=== PATIENT | male | born 1950 | race Caucasian/White ===

== ENCOUNTER 2020-02-25 15:03 | Outpatient (CLI) | payer MEDICARE, SELFPAY ==
--- NOTE | ~2020-02-25 | XR_ITS ---
EXAMINATION: XR lumbar spine min 4V EXAM DATE: 02/25/2020 15:40 INDICATION: Lumbosacral radiculopathy. TECHNIQUE: Lumber spine frontal, lateral, bilateral oblique projections. Coned down frontal and lat eral L5-S1 lumbar projections for interpretation. There is no prior study for comparison. FINDINGS: There is no spondylolysis. There is moderate disc disease L3-S1, mild at the upper lumbar l ower thoracic levels. There is moderate mid and lower lumbar facet arthropathy. The vertebral bodies are aligned in the AP dimension. There are no acute fractures identified. There is moderate abdomin al aortic arteriosclerotic disease. IMPRESSION: Moderate lumbar spondylosis. Reviewed, dictated and finalized at location A.
== END 2020-02-25 15:04 | disposition home or self-care (01) ==
PROVIDERS: PCP Family Medicine; Visit Provider Family Medicine
DX: M47.26 Other spondylosis with radiculopathy, lumbar region (principal)
CPT/HCPCS: 72110

== ENCOUNTER 2020-03-03 16:56 | Outpatient (CLI) | payer MEDICARE, SELFPAY ==
--- NOTE | ~2020-03-03 | MR_ITS ---
EXAMINATION: MR lumbar spine wo con DATE: 03/03/2020 17:44 INDICATION: Lumbosacral radiculopathy. TECHNIQUE: Magnetic resonance imaging (MRI) of the lumbar spine was performed without intravenous con trast. Sequences included sagittal T2-weighted FSE, sagittal T2-weighted FS FSE, sagittal T1-weighted FSE, and axial T2-weighted FSE. COMPARISON: CT abdomen and pelvis dated 06/02/2010 FINDINGS: Alignment is normal. Vertebral body heights are normal. Normal marrow signal. Moderate to severe dis c height loss at L3-L4, moderate disc height loss at T12-L1, mild to moderate disc height loss at L4- L5 and L5-S1 and mild disc height loss at T11-T12, L1-L2 and L2-L3. The conus medullaris terminates a t T12-L1. There is normal signal in the caudal spinal cord. Incompletely visualized large T2 hyperint ense cysts at both kidneys measuring at least 10 cm on the left. Paravertebral soft tissues are unrem arkable. The following disc levels are specifically discussed: T12-L1: Disc is moderately bulging with superimposed annular fissures and disc extrusions at the bila teral foraminal zones, right larger than left. There is mild bilateral facet joint osteoarthritis. Th ere is mild to moderate left and moderate right neural foraminal stenosis. There is moderate central canal stenosis narrowing of the lateral recesses, right greater than left L1-L2: Disc is moderately bulging. There is moderate bilateral facet joint osteoarthritis. There is m oderate bilateral neural foraminal stenosis. There is moderate central canal stenosis with narrowing of the lateral recesses. L2-L3: Disc is mildly bulging with superimposed moderate-sized left foraminal zone disc protrusion. T here is moderate right and mild to moderate left facet joint osteoarthritis. There is moderate bilate ral neural foraminal stenosis. There is moderate central canal stenosis and narrowing of the lateral recesses, left greater than right. L3-L4: Disc is moderately bulging. There is moderate bilateral facet joint osteoarthritis. There is m oderate bilateral neural foraminal stenosis. There is mild central canal stenosis. L4-L5: Disc is moderately bulging. There is moderate left and moderate to severe right facet joint os teoarthritis. There is moderate bilateral neural foraminal stenosis. There is mild central canal sten osis. L5-S1: Disc is mildly bulging with superimposed annular fissure and left paracentral to foraminal zon e disc extrusion. There is severe right and moderate left facet joint osteoarthritis. There is modera te to severe bilateral neural foraminal stenosis. There is mild central canal stenosis and narrowing of the left and right lateral recesses. IMPRESSION: 1. Moderate to severe lumbar spondylosis. Reviewed, dictated and finalized at location A.
== END 2020-03-03 16:57 | disposition home or self-care (01) ==
PROVIDERS: PCP Family Medicine; Visit Provider Family Medicine
DX: M54.17 Radiculopathy, lumbosacral region (principal); M47.816 Spondylosis without myelopathy or radiculopathy, lumbar region
CPT/HCPCS: 72148

== ENCOUNTER 2021-02-17 08:01 | Outpatient (CLI) | payer MEDICARE, SELFPAY ==
--- NOTE | ~2021-02-17 | XR_ITS ---
EXAMINATION: XR chest 2V EXAM DATE: 02/17/2021 08:13 INDICATION: R06.02 - Shortness of breath. TECHNIQUE: Frontal and lateral projections of the chest obtained and reviewed. There is no prior oksana dy for comparison. FINDINGS: Low lung volume. The lungs are clear. There are no pleural effusions. The cardiomediastin al silhouette is within normal limits. There is no pneumothorax suspected. Patient has diffuse idio pathic skeletal hyperostosis (DISH). IMPRESSION: No acute cardiopulmonary findings. Reviewed, dictated and finalized at location B.
== END 2021-02-17 08:02 | disposition home or self-care (01) ==
PROVIDERS: PCP Family Medicine; Visit Provider Family Medicine
DX: R06.02 Shortness of breath (principal)
CPT/HCPCS: 71046

== ENCOUNTER 2021-03-02 14:35 | Outpatient (CLI) | payer MEDICARE, SELFPAY ==
--- NOTE | 2021-03-06 13:55 | WPDPFTINT ---
PFT Procedure Performed PFT Procedure Performed Plethysmography (Lung Vol) Diffusing Cap (DLCO) Flow Vol Loop Spirometry w/o Bronchodil PFT Interpretation This PFT met all criteria for ATS standards and reproducibility FEV/FVC 79% FEV1 79% FVC 77% TLC 73% RV 56% RV/TLC 27% DLCO 64% when adjusted for alveolar volume but not adjusted for hemoglobin Flow volume loops were normal Impression: a restrictive ventilatory defect is present with mildly reduced diffusion capacity. This may be due to interstitial lung disease neuromuscular disease or obesity. Clinical correlation is advised.
== END 2021-03-02 14:36 | disposition home or self-care (01) ==
PROVIDERS: PCP Family Medicine; Visit Provider Family Medicine
DX: R06.02 Shortness of breath (principal)
CPT/HCPCS: 94375; 94726; 94729

== ENCOUNTER 2021-05-03 07:51 | Outpatient (CLI) | payer MEDICARE, SELFPAY ==
--- NOTE | ~2021-05-03 | CT_ITS ---
EXAMINATION: CT chest high resolution wo ia DATE: 05/03/2021 08:16 INDICATION: Shortness of breath, abnormal pulmonary function tests TECHNIQUE: Computed tomography (CT) of the chest was performed without intravenous contrast. The dose -length product (DLP) was 712.74 mGy-cm. Automated exposure control and iterative reconstruction tech Stagee were employed. COMPARISON: None FINDINGS: There is mild atelectasis of the lower lobes, lingula, and the right middle lobe. There is a 3 mm nodule of the right upper lobe on image 45. No pleural effusion or pneumothorax is identified. No pathologically enlarged thoracic lymph nodes are identified. The heart size is normal. Calcified coronary artery atherosclerosis is noted. There is a rim calcified 10.1 cm cyst of the left kidney. S maller cysts are noted in the right kidney. Although limited by the absence of intravenous contrast, there appears to be inflammation of the gallbladder. There are bridging osteophytes at multiple level s in the spine, consistent with diffuse idiopathic skeletal hyperostosis (DISH). IMPRESSION: 1. No CT correlate for the patient's symptoms. 2. Suspected inflammatory change of the gallbladder which could reflect acute cholecystitis. Recommen d correlation for right upper quadrant tenderness. Reviewed, dictated and finalized at location B. IMPRESSION: 1. No CT correlate for the patient's symptoms. 2. Suspected inflammatory change of the gallbladder which could reflect acute c holecystitis. Recommend correlation for right upper quadrant tenderness.
== END 2021-05-03 07:52 | disposition home or self-care (01) ==
PROVIDERS: PCP Family Medicine
DX: R94.2 Abnormal results of pulmonary function studies (principal); R06.09 Other forms of dyspnea
CPT/HCPCS: 71250

== ENCOUNTER 2023-04-06 16:52 | Outpatient (CLI) | payer MEDICARE, SELFPAY ==
[2023-04-06 17:48] LABS: IFOB Positive Control Positive; Immunochemical Fecal Occult Bl Negative (N)
== END 2023-04-06 16:53 | disposition home or self-care (01) ==
LOC: ANHLAB 16:53
PROVIDERS: PCP Family Medicine; Visit Provider Family Medicine
DX: D64.9 Anemia, unspecified (principal)
CPT/HCPCS: 82274

== ENCOUNTER → 2023-07-10 07:45 | Outpatient (CLI) | payer MEDICARE, SELFPAY ==
--- NOTE | ~2023-07-10 | US_ITS ---
EXAMINATION: US abdomen complete DATE: 07/10/2023 08:19 INDICATION: Unspecified abdominal pain. TECHNIQUE: Multiple grayscale and Doppler ultrasound images of the abdomen were obtained. COMPARISON: CT abdomen and pelvis 06/02/2010 FINDINGS: Abdominal aorta is normal in caliber. Inferior vena cava is normal. The spleen is normal in size. The kidneys are normal in size. There are cysts in the kidneys measuring up to 10.6 cm on the left. The visualized portions of the head of the pancreas are normal. There is diffuse hepatic steato sis. There are gallstones in the gallbladder, which is normal in size. No gallbladder wall thickening or sonographic Ontiveros sign. The common duct is normal and measures 6 mm. IMPRESSION: 1. Cholelithiasis. No evidence of acute cholecystitis. 2. Diffuse hepatic steatosis. Reviewed, dictated and finalized at location A.
== END ==
PROVIDERS: PCP Physician Assistant; Visit Provider Physician Assistant
DX: R10.9 Unspecified abdominal pain (principal); K80.20 Calculus of gallbladder without cholecystitis without obstruction; K76.0 Fatty (change of) liver, not elsewhere classified
CPT/HCPCS: 76700

== ENCOUNTER 2023-12-27 15:55 | Outpatient (CLI) | payer MEDICARE, SELFPAY ==
--- NOTE | ~2023-12-27 | XR_ITS ---
XR knee RT 3V 12/27/2023 16:10 Indication: Right knee pain Procedure: 3 views right knee Comparison: No prior studies for comparison. Findings: There is mild osteoarthritis of the right knee. No fracture, subluxation or dislocation. No significant joint effusion. No foreign bodies. Impression: 1: Mild osteoarthritis of the right knee. Reviewed, dictated and finalized at location A. Impression: 1: Mild osteoarthritis of the right knee.
== END 2023-12-27 15:56 ==
PROVIDERS: PCP Family Medicine; Visit Provider Family Medicine
DX: M17.11 Unilateral primary osteoarthritis, right knee (principal); M25.561 Pain in right knee
CPT/HCPCS: 73562

== ENCOUNTER 2024-04-29 22:08 | Inpatient (IN) | payer MEDICARE, SELFPAY ==
--- NOTE | ~2024-04-29 | CT_ITS ---
CT of the Abdomen and Pelvis: Indication: Abdominal pain Technique: 2.5 mm axial scans were obtained through the abdomen and pelvis following intravenous adm inistration of 100 cc of Omnipaque 350. Dose reduction technique was used on this scan by utilizing a utomated exposure control and iterative reconstruction technique. The dose-length product (DLP) was 1 282.22 mGy-cm. Findings: Scans through the lung bases demonstrate mild bibasilar atelectatic change. There is pneumobilia. No hepatic parenchymal abnormality seen otherwise. Gallbladder is contracted, w ith pneumobilia present. There is air in the common bile duct. Probable minimal peripancreatic inflam matory change/fluid the pancreatic head region. The spleen and adrenals glands are within normal limi ts. Bilateral renal cysts are present. There is a 1.9 cm ovoid nonobstructing right renal stone. Ther e are atherosclerotic calcifications of the aorta. No lymphadenopathy. No bowel obstruction. There is wall thickening of the distal sigmoid colon/rectum. Images through the pelvis were performed. Urinary bladder unremarkable. Prostate gland is enlarged. N o ascites. Impression: Wall thickening of the distal sigmoid colon/rectum is compatible with infectious/inflammatory colitis . Mild acute pancreatitis, as detailed above. Extensive pneumobilia. Correlate for recent biliary tract intervention. 1.9 cm nonobstructing right renal stone. Enlarged prostate gland. Reviewed, dictated and finalized at [facility]. Impression: Wall thickening of the distal sigmoid colon/rectum is compatible with infectiou s/inflammatory colitis. Mild acute pancreatitis, as detailed above. Extensive pneumobilia. Correlate for recent biliary tract intervention. 1.9 cm nonobstructing right renal stone. Enlarged prostate gland.
--- NOTE | ~2024-04-29 | MR_ITS ---
EXAMINATION: MR MRCP wo/w con/w 3D wo ind DATE: 04/30/2024 15:48 INDICATION: Pneumobilia and pancreatitis TECHNIQUE: Magnetic resonance imaging (MRI) of the abdomen was performed without and with 19 mL Multi karoline intravenous contrast. Sequences included coronal T2-weighted SS-FSE, coronal T2-weighted FS SS- FSE, coronal T2-weighted FS FIESTA, axial T2-weighted FS FIESTA, axial T2-weighted FIESTA, sagittal T 2-weighted SS-FSE, axial T1-weighted dual-echo FSPGR, axial T2-weighted SS-FSE, axial T1-weighted LAV A, axial T2-weighted STIR FSE. Thick-slab T2-weighted FRFSE-XL images were obtained for magnetic reso nance cholangiopancreatography (MRCP). Rotating maximum intensity projection 3-D reconstructions of t he volumetric data were created by the technologist. Postcontrast sequences included a time course of axial T1-weighted LAVA. COMPARISON: CT abdomen and pelvis dated 04/30/2024 FINDINGS: Heart size is normal. No pericardial or pleural effusion. There is consolidation in the dependent asp ect of the bilateral lower lobes which appeared most consistent with atelectasis on prior CT. There i s mild central intrahepatic biliary ductal dilation. Liver is otherwise normal. Spleen and bilateral adrenal glands are normal. Multiple bilateral renal cysts, the largest on the left measuring 11.7 cm and on the left measuring 8.4 cm. Absent signal within the small decompressed gallbladder which could represent a gallstone or pneumobi thang. The prominent pneumobilia previously seen in the intrahepatic biliary tree and common bile duct appears to have largely resolved. The common bile duct measures 6 mm in maximal diameter, tapering di stally at the head of the pancreas with no evident strictures or filling defects to suggest choledoch olithiasis or pneumobilia. The main pancreatic duct is normal in caliber measuring 2.5 cm in maximal diameter at the head of the pancreas, gradually tapering as it extends into the tail of the pancreas. There is mild peripancreat ic edema without a discrete peripancreatic acute fluid collection consistent with acute interstitial pancreatitis. No evident echogenic or peripancreatic necrosis. There is moderate to severe thoracic a nd lumbar spondylosis with from facet degenerative endplate changes at T11-T12. Marrow signal is othe rwise unremarkable. IMPRESSION: 1. Mild intra and extra hepatic biliary ductal dilation with resolution of the prior pneumobilia in t he common bile duct where there are no filling defects to suggest choledocholithiasis. 2. Mild peripancreatic edema consistent with acute interstitial pancreatitis. Reviewed, dictated and finalized at location A. IMPRESSION: 1. Mild intra and extra hepatic biliary ductal dilation with resolution of the prior pneumobilia in the common bile duct where there are no filling defects to suggest choledocholithiasis. 2. Mild peripancreatic edema consistent with acute interstitial pancreatitis.
--- NOTE | 2024-04-29 22:11 | ECG_ITS ---
Test Date: 2024-04-29 22:14:25 Measurements Intervals [place] Rate: 76 P: 22 SD: 173 QRS: -55 QRSD: 104 T: 47 QT: 365 QTc: 411 Interpretive Statements SINUS RHYTHM LEFT ANTERIOR FASCICULAR BLOCK ABNORMAL ECG No previous ECG available for comparison Electronically Signed On 04-30-2024 07:14:29 CDT by Walt Morgan D.O.
[2024-04-29 22:15] VITALS: BP 118/61; PULSE 77; RESP 15; TEMP 36.2; O2SAT 95
[2024-04-29 22:36] LABS: Hematocrit 54.7 % (42.0-52.0); Hemoglobin 18.5 g/dL (14.0-18.0); Mean Corpuscular HGB Conc 33.8 g/dl (32-36); Mean Corpuscular Hemoglobin 29.6 pg (26-34); Mean Corpuscular Volume 87.7 fl (80-100); Mean Platelet Volume 10.5 fl (7.4-10.4); Platelet Count Result 200 k/mm3 (150-375); Red Blood Count 6.24 M/mm3 (4.6-6.20); Red Cell Distribution Width 13.4 % (11.5-14.5); White Blood Count 25.2 K/mm3 (4.5-10.0)
[2024-04-29 22:52] LABS: Band Neutrophils Percent 7 % (0-6); Lymphocytes Absolute Manual 2.26 K/mm3 (1.1-4.5); Lymphocytes Percent Manual 9 % (18-44); Monocytes Absolute Manual 1.76 K/mm3 (0.1-0.90); Monocytes Percent Manual 7 % (3-9); Neutrophils Absolute Manual 21.16 K/mm3 (1.3-6.7); Neutrophils Percent Manual 77 % (46-73); Total Cells Counted 100
[2024-04-29 22:53] LABS: Alanine Aminotransferase 125 U/L (6-50); Albumin Level 4.5 g/dL (3.5-5.1); Alkaline Phosphatase 84 U/L (38-126); Anion Gap 12 mmol/L (4-12); Aspartate Amino Transferase 230 U/L (17-59); Bilirubin,Total 2.4 mg/dL (0.2-1.3); Blood Urea Nitrogen 25 mg/dL (9-20); Calcium 9.7 mg/dL (8.4-10.2); Carbon Dioxide 27 mmol/L (22-30); Chloride 101 mmol/L (98-107); Estimated CRCL calculation 69 ml/min; Estimated Glomerular Filt Rate > 60; Glucose 170 mg/dL (65-110); Hypochromasia 1+; Platelet Estimate Adequate (Adequate); Potassium 3.6 mmol/L (3.4-5.0); Schistocytes None Seen; Sodium 140 mmol/L (137-145)
[2024-04-29 23:14] LABS: Lipase 9276 U/L (23-300)
[2024-04-30 00:24] LABS: Appearance Urine Cloudy (Clear); Bacteria Urine None Seen /hpf; Bilirubin Urine Negative (Negative); Blood Urine 2+ (Negative); Color Urine Yellow (Yellow); Glucose Urine UA Negative (Negative); Hyaline Casts Urine Present /lpf; Ketones Urine Negative (Negative); Leukocyte Esterase Ur 1+ LEU/UL (Negative); Need Manual Microscopic Reviewed; Nitrate Urine Negative (Negative); Protein Urine Trace mg/dL (Negative); RBC Urine 51-100 /hpf (0-2); Specific Grav Ur 1.016 (1.001-1.035); Squamous Epithelial Cell Urine None Seen /hpf (Few); WBC Urine 0-5 /hpf (0-3)
[2024-04-30 00:32] LABS: Add Urine Microscopic? YES
[2024-04-30] MEDS: ONDANSETRON INJ 4 MG/2 ML VIAL IV PUSH ×2 (00:41→05:10)
[2024-04-30] MEDS: SODIUM CHLORIDE 0.9% IV 1,000 ML 999 ML IV CONT (00:41)
[2024-04-30] MEDS: MORPHINE SULFATE (*CRX) 4 MG/ML INJ IV PUSH ×3 (00:41→11:00)
[2024-04-30 01:41] VITALS: BP 126/70; PULSE 88; RESP 15; O2SAT 100
--- NOTE | 2024-04-30 03:01 | ED.GENADULT ---
HPI - General Adult General Chief complaint: Abdominal Pain Stated complaint: chest pain Time Seen by Provider: 04/30/24 00:31 History of Present Illness HPI narrative: Patient is a 4-year-old gentleman who presents emergency department chief complaint of epigastric pain. Patient reports pain began around 7:00 a.m. this evening reports that it was intermittent times but that has now become constant. Patient reports that he still has his gallbladder reports that he has had some nausea with this as well. Related Data Home Medications Medication Instructions Recorded Confirmed fluorouracil 5 % topical cream applic topical 12/27/23 12/27/23 Allergies Allergy/AdvReac Type Severity Reaction Status Date / Time aspirin Allergy Unknown gi bleed Verified 02/13/24 14:06 niacin Allergy Unknown Unknown Verified 02/13/24 14:06 NSAIDS (Non-Steroidal Allergy Unknown Anemia Verified 02/13/24 14:06 Anti-Inflamma Review of Systems Review of Systems: A 10 system review of systems was completed on the patient and is negative except for what is stated in the HPI. Nursing and ancillary documentation was reviewed. [facility] Past Medical History Medical History Abdominal aortic atherosclerosis Angina pectoris, unstable Erectile dysfunction Excess ear wax History of blood transfusion Hyperlipidemia Hypertension Kidney stones Lumbar spinal stenosis Obesity (BMI 30-39.9) Polycythemia Sleep apnea with use of continuous positive airway pressure (CPAP) Stomach ulcer Surgical History Surgical History History of toe surgery Hx of heart artery stent Status post phlebectomy Family History Family History Other Cancer Family history of cardiovascular disease Family history of elevated blood lipids Hypertension Social History Social History Smoking status: Former smoker Tobacco type: cigarettes Smoking end date: 10/15/84 Alcohol intake: current Lack of Transportation: No Lack of Food: Never True Current Housing: I Have Housing Concerned About Future Housing: No Difficulty Paying Gas/Electric Bills: No Difficulty Paying for Meds: No Currently Unemployed: No Education: Associate Degree Difficulty w/ Childcare or Family Care: No Exam Narrative: GENERAL: Well-appearing, well-nourished, and in no acute distress. HEAD: Normocephalic, atraumatic. EYES: PERRLA and EOMI. ENT: Nares clear, no rhinorrhea or epistaxis. Mucous membranes moist. NECK: Supple. CHEST: Clear to auscultation. No respiratory distress. HEART: Regular rate and rhythm. No murmur heard. Normal peripheral pulses. ABDOMEN: Soft, tenderness to palpation the epigastric region, nondistended, normal active bowel sounds. EXTREMITIES: Normal range of motion. No edema. SKIN: Warm, dry, no rash. NEURO: No focal deficits. Alert and oriented x3. PSYCH: Normal mood and affect. Course Vital Signs Vital signs: Vital Signs Temperature 36.2 C L 04/29/24 22:15 Pulse Rate 77 04/29/24 22:15 Respiratory Rate 15 04/29/24 22:15 Blood Pressure 118/61 04/29/24 22:15 Pulse Oximetry 95 04/29/24 22:15 Oxygen Delivery Room Air 04/29/24 22:15 Temperature 36.2 C L 04/29/24 22:15 Pulse Rate 88 04/30/24 01:41 Respiratory Rate 15 04/30/24 01:41 Blood Pressure 126/70 04/30/24 01:41 Pulse Oximetry 100 04/30/24 01:41 Oxygen Delivery Room Air 04/29/24 22:15 Medical Decision Making [facility] Narrative Medical decision making narrative: Differential diagnosis includes intra-abdominal infection cholecystitis, choledocholithiasis, pancreatitis, gastritis, diverticulitis, appendicitis Laboratory studies were obtained on the patient showed white count [id number] elect
[2024-04-30 04:30] VITALS: BP 126/71; PULSE 64; RESP 16; TEMP 36.3; O2SAT 94; BMI 34.8
--- NOTE | 2024-04-30 04:40 | ADMGEN ---
This patient, Derek Garrison , was admitted to [facility] Surg Room 304-01 at 0440. Patient/family oriented to hospital policies and general routines including ID bracelet, bed and alarms, visiting hours, pain management, procedures, bathroom and other care routines, personal items, smoking policy, room service/diet, and visiting hours. Information on how to activate the Rapid Response Team has been discussed. Patient/Family are encouraged to report perceived risks to care and to ask questions if they do not understand what they are told or what they should do.
[2024-04-30] MEDS: SODIUM CHLORIDE 0.9% IV 1,000 ML 125 ML IV CONT ×2 (05:10→18:12)
[2024-04-30] MEDS: PANTOPRAZOLE SODIUM IV 40 MG VIAL IV PUSH (08:31)
[2024-04-30 09:49] VITALS: O2SAT 92
[2024-04-30] MEDS: PIPERACILLN/TAZ 3.375GM/NS50ML 3.375 GM/50 ML BAG IVPB ×2 (11:01→18:09)
[2024-04-30 11:59] LABS: Basophils Percent Auto 0.2 % (0.2-1.2); Hematocrit 49.9 % (42.0-52.0); Hemoglobin 16.8 g/dL (14.0-18.0); Immature Granulocyte Absolute 0.06 K/mm3 (0.00-0.031); Immature Granulocyte Percent A 0.3 % (0-0.5); Lymphocytes Absolute Auto 0.63 K/mm3 (0.9-3.2); Lymphocytes Percent Auto 3.6 % (18.3-44.2); Mean Corpuscular HGB Conc 33.7 g/dl (32-36); Mean Corpuscular Hemoglobin 30.1 pg (26-34); Mean Corpuscular Volume 89.4 fl (80-100); Mean Platelet Volume 9.9 fl (7.4-10.4); Monocytes Percent Auto 5.5 % (2.6-8.5); Neutrophils Absolute Auto 15.6 K/mm3 (1.3-6.7); Neutrophils Percent Auto 90.4 % (45.5-73.1); Platelet Count Result 148 k/mm3 (150-375); Red Blood Count 5.58 M/mm3 (4.6-6.20); Red Cell Distribution Width 13.5 % (11.5-14.5); White Blood Count 17.3 K/mm3 (4.5-10.0)
[2024-04-30 12:10] LABS: Alanine Aminotransferase 105 U/L (6-50); Alkaline Phosphatase 63 U/L (38-126); Anion Gap 8 mmol/L (4-12); Aspartate Amino Transferase 85 U/L (17-59); Bilirubin,Total 2.4 mg/dL (0.2-1.3); Blood Urea Nitrogen 22 mg/dL (9-20); Calcium 9.1 mg/dL (8.4-10.2); Carbon Dioxide 27 mmol/L (22-30); Chloride 104 mmol/L (98-107); Estimated CRCL calculation 69 ml/min; Estimated Glomerular Filt Rate > 60; Glucose 167 mg/dL (65-110); Sodium 139 mmol/L (137-145)
--- NOTE | 2024-04-30 12:13 | PM.CNGS ---
Assessment and Plan Assessment and plan (1) Acute pancreatitis: Code(s): K85.90 - Acute pancreatitis without necrosis or infection, unspecified <FALLON BarnesP - Last Filed: 04/30/24 12:48> Status: Acute <ALVAREZ Barnes - Last Filed: 04/30/24 12:48> Assessment and Plan: Patient presents with acute pancreatitis. Lipase 9000 on admission. He presents with elevated LFTs and findings of extensive pneumobilia on the CT scan. It is possible that the etiology is biliary. He denies any heavy alcohol use. Triglycerides normal. Could also be idiopathic. Will get an MRCP to further evaluate. Continue medical management of his pancreatitis with IV fluids, pain control, and bowel rest. GI has also been consulted. Discussed with the patient that if this appears to be biliary pancreatitis, then he will eventually need an interval laparoscopic cholecystectomy. Will continue to follow along. <Jaqueline SpearALVAREZ - Last Filed: 04/30/24 12:48> Patient presents with acute pancreatitis. Lipase 9000 on admission. He presents with elevated LFTs and findings of extensive pneumobilia on the CT scan. It is possible that the etiology is biliary. He denies any heavy alcohol use. Triglycerides normal. Could also be idiopathic. Will get an MRCP to further evaluate. Continue medical management of his pancreatitis with IV fluids, pain control, and bowel rest. GI has also been consulted. Discussed with the patient that if this appears to be biliary pancreatitis, then he will eventually need an interval laparoscopic cholecystectomy. Will continue to follow along. Patient is fairly comfortable now now. No acute surgical abdomen. Lipase markedly elevated at 9000 [place] [address]. Also has some thickening of the sigmoid colon and rectum versus underdistention on CT scan there is air in the biliary tree the patient has not had any recent in the relation of the biliary tree. His acute pancreatitis is likely due to biliary origin such as a past retained common bile duct stone. Have recommended we continue IV antibiotics and get an MRCP performed to evaluate the biliary tree. Await results. GI consult is also pending. Will follow. <Rayray Mc MD - Last Filed: 04/30/24 14:29> (2) Cholelithiasis: Qualifiers: Biliary obstruction: without biliary obstruction Cholecystitis presence: without cholecystitis Cholelithiasis location: gallbladder Qualified Code(s): K80.20 - Calculus of gallbladder without cholecystitis without obstruction <ALVAREZ Barnes - Last Filed: 04/30/24 12:48> Code(s): K80.20 - Calculus of gallbladder without cholecystitis without obstruction <Jaqueline Spear [employer] - Last Filed: 04/30/24 12:48> Status: Chronic <ALVAREZ Barnes - Last Filed: 04/30/24 12:48> Assessment and Plan: Patient with a history of cholelithiasis on an abdominal ultrasound about a year ago. <Jaqueline Spear [employer] - Last Filed: 04/30/24 12:48> (3) Elevated LFTs: Code(s): R79.89 - Other specified abnormal findings of blood chemistry <Jaqueline Spear [employer] - Last Filed: 04/30/24 12:48> Status: Acute <Jaqueline Spear [employer] - Last Filed: 04/30/24 12:48> Assessment and Plan: LFTs elevated on admission with total bilirubin 2.4. CT findings with pancreatitis, pneumobilia, and elevated LFTs, is concerning for choledocholithiasis. Will add repeat labs on for today. GI also consulted. MRCP ordered. <Jaqueline Spear [employer] - Last Filed: 04/30/24 12:48> (4) Colitis: Code(s): K52.9 - Noninfective gastroenteritis and colitis, unspecified <Jaqueline Spear [employer] - Last Filed: 04/30/24 12:48> Status: Acute <Jaqueline Spear [employer] - Last Filed: 04/30/24 12:48> Assessment and Plan: CT suggests possible colitis of the distal sigmoid colon/proximal rectum. Complaining of some diarrhea
[2024-04-30 12:31] LABS: Lipase 2466 U/L (23-300)
[2024-04-30 13:58] VITALS: BP 166/72; PULSE 96; RESP 20; TEMP 36.4; O2SAT 90
--- NOTE | 2024-04-30 15:54 | PM.IMHP ---
H&P: HPI History of Present Illness Date/Time: 04/30/24 15:54 Chief Complaint: Generalized abdominal pain after eating a cheeseburger Narrative: 74-year-old male with past medical history obesity and other comorbidities who presents with sudden onset of epigastric pain. ER evaluation demonstrated elevated white count, elevated total bilirubin, transaminitis, lipase [id number]. Patient admitted for pancreatitis. As he was admitted to the medical floor he had a loose bloody bowel movement. Review of Systems Review of Systems: All systems reviewed & are unremarkable except as noted in HPI and below (Subjective) [facility] Past Medical History Medical History (Updated 05/01/24 @ 17:27 by Gary Farley MD) Abdominal aortic atherosclerosis Angina pectoris, unstable Erectile dysfunction Excess ear wax History of blood transfusion Hyperlipidemia Hypertension Kidney stones Leukocytosis Lumbar spinal stenosis Obesity (BMI 30-39.9) Polycythemia Rectal bleeding Sleep apnea with use of continuous positive airway pressure (CPAP) Stomach ulcer Surgical History Surgical History History of toe surgery Hx of heart artery stent Status post phlebectomy Family History Family History Other Cancer Family history of cardiovascular disease Family history of elevated blood lipids Hypertension Social History Social History Smoking status: Former smoker Alcohol intake: former Drinks per week: 1 Substance use type: does not use Do You Feel Safe in your Home?: Yes Lack of Transportation: No Lack of Food: Never True Current Housing: I Have Housing Concerned About Future Housing: No Difficulty Paying Gas/Electric Bills: No Difficulty Paying for Meds: No Currently Unemployed: No Education: Associate Degree Difficulty w/ Childcare or Family Care: No Spiritual care concerns: No Meds Home Medications and Allergies Home Medications Medication Instructions Recorded Confirmed Type acyclovir 5 % topical ointment 1 applic topical 6XD 7 days #10 11/22/22 04/30/24 Rx (Zovirax) grams fluorouracil 5 % topical cream 1 applic topical PRN PRN Rash 12/27/23 04/30/24 History rosuvastatin 20 mg tablet (Crestor) 20 mg PO DAILY #90 tabs 12/31/23 04/30/24 Rx hydrocodone 5 mg-acetaminophen 325 1 tablet PO Q6H PRN pain #30 tabs 03/24/24 04/30/24 Rx mg tablet hydrochlorothiazide 25 mg tablet 25 mg PO DAILY 04/30/24 04/30/24 History lisinopril 10 mg tablet 10 mg PO DAILY 04/30/24 04/30/24 History nebivolol 20 mg tablet 20 mg PO DAILY 04/30/24 04/30/24 History pantoprazole 40 mg tablet,delayed 40 mg PO QAM 04/30/24 04/30/24 History release sildenafil (pulm.hypertension) 20 20 mg PO DAILY PRN Sexual Activity 04/30/24 04/30/24 History mg tablet ciprofloxacin HCl 500 mg tablet 500 mg PO Q12H 2 days #4 tabs 05/02/24 Rx Allergies Allergy/AdvReac Type Severity Reaction Status Date / Time aspirin Allergy Unknown gi bleed Verified 02/13/24 14:06 niacin Allergy Unknown Unknown Verified 02/13/24 14:06 NSAIDS (Non-Steroidal Allergy Unknown Anemia Verified 02/13/24 14:06 Anti-Inflamma Vital Signs Vital Signs - 24 hr 04/29/24 22:15 04/30/24 01:41 04/30/24 04:30 Temperature 97.2 F L 97.3 F L Pulse Rate 77 88 64 Respiratory Rate 15 15 16 Blood Pressure 118/61 126/70 126/71 Pulse Oximetry 95 100 94 Oxygen Delivery Room Air Oxygen Flow Rate 04/30/24 04:14 04/30/24 09:49 04/30/24 08:00 Temperature Pulse Rate Respiratory Rate Blood Pressure Pulse Oximetry 92 Oxygen Delivery Room Air Nasal Cannula Room Air Oxygen Flow Rate 2 04/30/24 13:58 Temperature 97.6 F Pulse Rate 96 Respiratory Rate 20 Blood Pressure 166/72 H Pulse Oximetry 90 Oxygen Delivery Oxygen Flow Rate Exam Const: Gen
[2024-04-30 18:14] LABS: Hematocrit 51.8 % (42.0-52.0); Hemoglobin 17.2 g/dL (14.0-18.0)
[2024-04-30 18:44] LABS: Toxigenic C. Diff NEGATIVE (NEGATIVE)
--- NOTE | 2024-04-30 18:48 | WPDGICN ---
Assessment and Plan Assessment and plan (1) Acute pancreatitis: Code(s): K85.90 - Acute pancreatitis without necrosis or infection, unspecified Status: Acute Assessment and Plan: MRCP reviewed, no more pneumobilia (wonder if stone already passed) and no findings in CBD. No need to do ERCP at this time surgery on board (2) Elevated LFTs: Code(s): R79.89 - Other specified abnormal findings of blood chemistry Status: Acute Assessment and Plan: probably from pancreatitis denies alcohol use monitor (3) Colitis: Code(s): K52.9 - Noninfective gastroenteritis and colitis, unspecified Status: Acute Assessment and Plan: also new finding, on iv abx last colonoscopy 10 years ago colonoscopy as outpatient in 4-6 weeks after resolution on symptom (4) Pneumobilia: Code(s): K83.8 - Other specified diseases of biliary tract Status: Acute (5) Diabetes mellitus, type 2: Qualifiers: Diabetes mellitus terminal system operator insulin use: without terminal system operator use Diabetes mellitus complication status: without complication Qualified Code(s): E11.9 - Type 2 diabetes mellitus without complications Code(s): E11.9 - Type 2 diabetes mellitus without complications Status: Acute (6) Rectal bleeding: Code(s): K62.5 - Hemorrhage of anus and rectum Status: Acute Assessment and Plan: probably from colitis hgb normal GI Consult Note Consult date/time: 04/30/24 18:48 Reason for consult: pancreatitis, rectal bleeding. HPI: Derek Garrison . is a 74 year old male with history of CAD, HTN, GERD here with new onset of generalized abdominal pain around 7:00 p.m. last night that started after eating a cheeseburger and fries for dinner. Also had nausea. Pain worsened and finally came to ER, denies previous episode of pancreatitis or liver disease. Labs showed a white blood cell count [id number], total bilirubin 2.4, AST 230, ALT 125, alk-phos 84, lipase 9276. CT of the abdomen and pelvis shows wall thickening of the distal sigmoid colon/rectum compatible with infectious/inflammatory colitis, mild acute pancreatitis, extensive pneumobilia, 1.9 cm obstructing right renal stone, enlarged prostate gland. He was started on IV Zosyn, IV fluids, and is currently NPO. Denies any heavy alcohol use. Recent triglycerides normal, MRCP showed pancreatitis, no stone in bile duct and no more pneumobilia. Also had small amount of rectal bleeding. Review of Systems Constitutional: Constitutional: Denies chills Eyes: Eyes: Denies blurry vision ENT: Reports Normal hearing present Cardiovascular: Cardiovascular: Denies chest pain Respiratory: Respiratory: Denies cough Gastrointestinal: Gastrointestinal: Reports abdominal pain, Reports hematochezia and Reports nausea Genitourinary: Genitourinary: Denies dysuria Musculoskeletal: Musculoskeletal: Denies neck pain Integumentary/Breasts: Skin/Breast: Denies rash Neurologic: Denies Abnormal speech present Psychiatric: Psychiatric: Denies behavioral changes [facility] Past Medical History Medical History (Updated 04/30/24 @ 18:52 by Gary Farley MD) Abdominal aortic atherosclerosis Angina pectoris, unstable Erectile dysfunction Excess ear wax History of blood transfusion Hyperlipidemia Hypertension Kidney stones Lumbar spinal stenosis Obesity (BMI 30-39.9) Polycythemia Rectal bleeding Sleep apnea with use of continuous positive airway pressure (CPAP) Stomach ulcer Surgical History Surgical History History of toe surgery Hx of heart artery stent Status post phlebectomy Family History Family History Other Cancer Family history of cardiovascular disease Family history of elevated blood lipids Hypertension Social History Social History (Reviewed 04/30/24 @ 12:25 by Jaqueline Bruce
[2024-04-30 20:00] VITALS: PULSE 99; RESP 20; O2SAT 96
[2024-04-30] MEDS: HEPARIN SODIUM 5,000 UNITS/ML VIAL 5000 UNITS SUB-Q (20:33)
[2024-04-30 21:02] VITALS: BP 125/75; PULSE 99; RESP 20; TEMP 36.7; O2SAT 96
[2024-04-30] MEDS: WATER FOR IRRIGATION, STERILE 500 ML BOTTLE (22:35)
[2024-05-01] MEDS: PIPERACILLN/TAZ 3.375GM/NS50ML 3.375 GM/50 ML BAG IVPB ×4 (00:06→20:28)
[2024-05-01] MEDS: SODIUM CHLORIDE 0.9% IV 1,000 ML 125 ML IV CONT ×3 (02:37→20:28)
[2024-05-01 05:42] VITALS: BP 136/68; PULSE 102; RESP 20; TEMP 36.8; O2SAT 99
[2024-05-01 06:28] LABS: Basophils Percent Auto 0.3 % (0.2-1.2); Eosinophils Absolute Auto 0.1 K/mm3 (0-0.3); Hematocrit 50.5 % (42.0-52.0); Hemoglobin 15.2 g/dL (14.0-18.0); Immature Granulocyte Absolute 0.05 K/mm3 (0.00-0.031); Immature Granulocyte Percent A 0.4 % (0-0.5); Immature Platelet Fraction Pct 3.7 % (0.9-11.2); Lymphocytes Percent Auto 10.5 % (18.3-44.2); Mean Corpuscular HGB Conc 30.1 g/dl (32-36); Mean Corpuscular Hemoglobin 29.1 pg (26-34); Mean Corpuscular Volume 96.7 fl (80-100); Mean Platelet Volume 10.6 fl (7.4-10.4); Monocytes Absolute Auto 0.8 K/mm3 (0.1-0.6); Monocytes Percent Auto 6.1 % (2.6-8.5); Neutrophils Absolute Auto 10.2 K/mm3 (1.3-6.7); Neutrophils Percent Auto 81.7 % (45.5-73.1); Platelet Count Result 139 k/mm3 (150-375); Red Blood Count 5.22 M/mm3 (4.6-6.20); Red Cell Distribution Width 13.6 % (11.5-14.5); White Blood Count 12.4 K/mm3 (4.5-10.0)
[2024-05-01 06:45] LABS: Alanine Aminotransferase 65 U/L (6-50); Albumin Level 3.5 g/dL (3.5-5.1); Alkaline Phosphatase 52 U/L (38-126); Anion Gap 11 mmol/L (4-12); Aspartate Amino Transferase 42 U/L (17-59); Bilirubin,Total 2.1 mg/dL (0.2-1.3); Blood Urea Nitrogen 17 mg/dL (9-20); Calcium 8.6 mg/dL (8.4-10.2); Carbon Dioxide 22 mmol/L (22-30); Chloride 106 mmol/L (98-107); Estimated CRCL calculation 77 ml/min; Estimated Glomerular Filt Rate > 60; Glucose 125 mg/dL (65-110); Lipase 787 U/L (23-300); Magnesium 2.1 mg/dL (1.6-2.3); Potassium 3.9 mmol/L (3.4-5.0); Sodium 139 mmol/L (137-145)
[2024-05-01 08:38] VITALS: PULSE 102
[2024-05-01] MEDS: PANTOPRAZOLE SODIUM IV 40 MG VIAL IV PUSH (08:38)
[2024-05-01] MEDS: NEBIVOLOL HCL 5 MG TABLET 20 MG PO (08:38)
[2024-05-01] MEDS: HEPARIN SODIUM 5,000 UNITS/ML VIAL 5000 UNITS SUB-Q ×2 (08:38→20:28)
--- NOTE | 2024-05-01 11:00 | PM.PNGS ---
Progress Note: A&P Assessment and Plan (1) Acute pancreatitis: Code(s): K85.90 - Acute pancreatitis without necrosis or infection, unspecified Status: Acute Assessment and Plan: Pancreatitis appears to be resolving. Lipase down from 9,000 on admission to 787 today. No abdominal pain or nausea this morning. MRCP showed acute interstitial pancreatitis with resolution of the pneumobilia. No common bile duct stone. There is either a gallstone or small area of pneumobilia in the contracted gallbladder on MRCP. GI deferred ERCP for now. Continue medical management for his pancreatitis. Advanced to clear liquids today. (2) Cholelithiasis: Qualifiers: Cholelithiasis location: gallbladder Cholecystitis presence: without cholecystitis Biliary obstruction: without biliary obstruction Qualified Code(s): K80.20 - Calculus of gallbladder without cholecystitis without obstruction Code(s): K80.20 - Calculus of gallbladder without cholecystitis without obstruction Status: Chronic Assessment and Plan: Patient with a history of cholelithiasis on an abdominal ultrasound about a year ago. MRCP showed possible gallstone in a contracted gallbladder. He may still require an interval laparoscopic cholecystectomy at some point considering his pancreatitis was likely biliary. Will discuss further with Dr. Mc. (3) Elevated LFTs: Code(s): R79.89 - Other specified abnormal findings of blood chemistry Status: Acute Assessment and Plan: LFTs trending down and bilirubin 2.1 today. Pneumobilia resolved on MRCP. No common bile duct stone. Possible that he had a gallstone that has passed. GI also following. Trend labs. (4) Colitis: Code(s): K52.9 - Noninfective gastroenteritis and colitis, unspecified Status: Acute Assessment and Plan: CT suggests mild wall thickening vs underdistention of the distal sigmoid colon/proximal rectum. He had some diarrhea on admission. Continue to monitor. WBC trending down from 25.2 on admission to 12.4 today. Continue antibiotics. (5) Pneumobilia: Code(s): K83.8 - Other specified diseases of biliary tract Status: Acute Assessment and Plan: Unclear etiology. No previous biliary procedures. MRCP showed resolution of pneumobilia. Plan I have discussed the patient's case and plan of care with Dr. Mc. Subjective Subjective Date/Time Seen: 05/01/24 11:00 Patient reports: no new complaints, feels better, pain is less, tolerating liquids well and afebrile Interval history: Patient feeling much better today. No abdominal pain. Denies nausea or vomiting. He is tolerating clear liquids this morning. He reports another liquid stool that was like colored and slightly red tinged early this morning. Exam Const: General: comfortable and no acute distress Orientation/consciousness: patient oriented x3 GI: Inspection: non-distended GI Palp: Yes Soft to palpation, No Tenderness to palpation present (GI) and No Guarding due to palpation present (GI) Percussion: Yes normal to percussion Auscultation: normal bowel sounds Objective Data Vital Signs Vital Signs: Vital Signs - 24 hr 04/30/24 13:58 04/30/24 21:02 04/30/24 20:00 Temperature 97.6 F 98.1 F Pulse Rate 96 99 99 Respiratory Rate 20 20 20 Blood Pressure 166/72 H 125/75 Pulse Oximetry 90 96 96 Oxygen Delivery CPAP 04/30/24 22:30 05/01/24 02:00 05/01/24 05:42 Temperature 98.2 F Pulse Rate 102 H Respiratory Rate 20 Blood Pressure 136/68 Pulse Oximetry 99 Oxygen Delivery CPAP CPAP 05/01/24 08:38 05/01/24 08:38 Temperature Pulse Rate 102 H 102 H Respiratory Rate Blood Pressure Pulse Oximetry Oxygen Delivery Room Air Intake/Output Intake/Output: Intake & Output 04/28/24 04/29/24 04/30/24 05/01/24 23:59 23:59 23:59 23:59 Intake Total 2099 1862 Balance 2100 1862 Meds/Results Medications: Active Medications
[2024-05-01 14:00] VITALS: BP 120/65; PULSE 75; RESP 18; TEMP 36.7; O2SAT 95
--- NOTE | 2024-05-01 14:26 | PM.IMPN ---
Progress Note: A&P Assessment and Plan (1) Leukocytosis: Code(s): D72.829 - Elevated white blood cell count, unspecified Status: Acute (2) Rectal bleeding: Code(s): K62.5 - Hemorrhage of anus and rectum Status: Acute (3) Pneumobilia: Code(s): K83.8 - Other specified diseases of biliary tract Status: Acute (4) Colitis: Code(s): K52.9 - Noninfective gastroenteritis and colitis, unspecified Status: Acute (5) Elevated LFTs: Code(s): R79.89 - Other specified abnormal findings of blood chemistry Status: Acute Plan Symptomatology and laboratory parameters improving. Continue Zosyn. GI and surgery following. Advanced diet slowly. Subjective Date/time seen: 05/01/24 14:26 Interval history: Patient feels much better. He is ready to eat more. Denies further bloody bowel movements. Review of Systems Review of Systems: All systems reviewed & are unremarkable except as noted in HPI and below (Subjective) Exam Const: General: comfortable and no acute distress Other: Obese. Eyes: Pupils: Equal, round and reactive pupils present Neck: Neck: supple Resp: Effort & Inspection: normal respiratory effort Auscultation: clear to auscultation bilaterally Cardio: Rate: regular rate Rhythm: regular rhythm GI: GI Palp: Yes Soft to palpation and No Tenderness to palpation present (GI) Extrem: General: no edema Objective Data Vital Signs Vital Signs: Vital Signs - 24 hr 04/30/24 21:02 04/30/24 20:00 04/30/24 22:30 Temperature 98.1 F Pulse Rate 99 99 Respiratory Rate 20 20 Blood Pressure 125/75 Pulse Oximetry 96 96 Oxygen Delivery CPAP CPAP 05/01/24 02:00 05/01/24 05:42 05/01/24 08:38 Temperature 98.2 F Pulse Rate 102 H 102 H Respiratory Rate 20 Blood Pressure 136/68 Pulse Oximetry 99 Oxygen Delivery CPAP 05/01/24 08:38 05/01/24 14:00 Temperature 98.0 F Pulse Rate 102 H 75 Respiratory Rate 18 Blood Pressure 120/65 Pulse Oximetry 95 Oxygen Delivery Room Air Intake/Output Intake/Output: Intake & Output 04/28/24 04/29/24 04/30/24 05/01/24 23:59 23:59 23:59 23:59 Intake Total 2100 3222 Balance 2100 3222 Meds/Results Medications: Active Medications Generic Name Dose Route Start Last Admin Trade Name Freq PRN Reason Stop Dose Admin Heparin Sodium (Porcine) 5,000 units 04/30/24 21:00 05/01/24 08:38 Heparin Sodium 5,000 Units/Ml Vial SUB-Q 5,000 units Q12HR SHIVAM Administration Sodium Chloride 1,000 mls @ 125 mls/hr 04/30/24 03:05 05/01/24 11:15 Normal Saline Iv IV CONT 125 mls/hr .Q8H SHIVAM Administration Piperacillin/Tazobactam/Dextrose 3.375 gm in 50 mls @ 100 mls/hr 04/30/24 11:00 05/01/24 11:14 Zosyn 3.375 Gm/Ns 50 Ml IVPB 100 mls/hr Q6HR SHIVAM Administration Morphine Sulfate 4 mg 04/30/24 03:03 04/30/24 11:00 Morphine Sulfate (*Crx) 4 Mg/Ml Inj IV PUSH 4 mg Q2H PRN Administration Pain Rated 7-10 Nebivolol 20 mg 05/01/24 09:00 05/01/24 08:38 Nebivolol Hcl 5 Mg Tablet PO 20 mg DAILY SHIVAM Administration Ondansetron HCl 4 mg 04/30/24 03:03 04/30/24 05:10 Ondansetron Inj 4 Mg/2 Ml Vial IV PUSH 4 mg Q4H PRN Administration Nausea Pantoprazole Sodium 40 mg 04/30/24 09:00 05/01/24 08:38 Pantoprazole Sodium Iv 40 Mg Vial IV PUSH 40 mg QAM SHIVAM Administration Radiology Results: ITS Impressions Abdomen/Pelvis CT 04/30/24 05:41 Impression: Wall thickening of the distal sigmoid colon/rectum is compatible with infectious/inflammatory colitis. Mild acute pancreatitis, as detailed above. Extensive pneumobilia. Correlate for recent biliary tract intervention. 1.9 cm nonobstructing right renal stone. Enlarged prostate gland. MRCP 04/30/24 15:55 IMPRESSION: 1. Mild intra and extra hepatic biliary ductal dilation with resolution of the prior pneumobilia in the common bile duct where
--- NOTE | 2024-05-01 17:25 | WPDGIPROGNO ---
Progress Note: A&P Assessment and Plan (1) Acute pancreatitis: Code(s): K85.90 - Acute pancreatitis without necrosis or infection, unspecified Status: Acute Assessment and Plan: clinically better, mrcp reviewed and no more pneumobilia or stone in CBD surgery on board, may need interval cholecystectomy tolerating liquid diet, probably tomorrow advance (2) Abdominal pain: Qualifiers: Abdominal location: right upper quadrant Qualified Code(s): R10.11 - Right upper quadrant pain Code(s): R10.9 - Unspecified abdominal pain Status: Acute Assessment and Plan: resolved (3) Colitis: Code(s): K52.9 - Noninfective gastroenteritis and colitis, unspecified Status: Acute Assessment and Plan: causing rectal bleeding iv abx leukocytosis trending down recommend colonoscopy in about 4 weeks once episode resolves (4) Elevated LFTs: Code(s): R79.89 - Other specified abnormal findings of blood chemistry Status: Acute Assessment and Plan: bili 2, probably from pancreatitis (5) Pneumobilia: Code(s): K83.8 - Other specified diseases of biliary tract Status: Acute (6) Rectal bleeding: Code(s): K62.5 - Hemorrhage of anus and rectum Status: Acute (7) Polycythemia: Code(s): D75.1 - Secondary polycythemia Status: Acute (8) Diabetes mellitus, type 2: Qualifiers: Diabetes mellitus fdc insulin use: without fdc use Diabetes mellitus complication status: without complication Qualified Code(s): E11.9 - Type 2 diabetes mellitus without complications Code(s): E11.9 - Type 2 diabetes mellitus without complications Status: Acute (9) Leukocytosis: Code(s): D72.829 - Elevated white blood cell count, unspecified Status: Acute Subjective Date/time seen: 05/01/24 17:25 Interval history: clinically much better with no more pain or rectal bleeding Review of Systems Review of Systems: All systems reviewed & are unremarkable except as noted in HPI and below Exam Const: General: comfortable and no acute distress Orientation/consciousness: patient oriented x3 HENMT: Face/Nose/Sinus: Normal nares present Eyes: General: appearance normal, both eyes and all related structures Neck: Neck: supple Resp: Effort & Inspection: normal respiratory effort Cardio: Rate: regular rate GI: Inspection: non-distended GI Palp: Yes Soft to palpation, No Tenderness to palpation present (GI) and No Guarding due to palpation present (GI) Percussion: Yes normal to percussion Auscultation: normal bowel sounds Skin: General skin exam: normal color Neuro: Speech: normal speech Motor exam (neuro): 5/5 motor strength present throughout Extrem: General: normal to inspection Psych: Mental Status: mental status grossly normal Objective Data Vital Signs Vital Signs: Vital Signs - 24 hr 04/30/24 21:02 04/30/24 20:00 04/30/24 22:30 Temperature 98.1 F Pulse Rate 99 99 Respiratory Rate 20 20 Blood Pressure 125/75 Pulse Oximetry 96 96 Oxygen Delivery CPAP CPAP 05/01/24 02:00 05/01/24 05:42 05/01/24 08:38 Temperature 98.2 F Pulse Rate 102 H 102 H Respiratory Rate 20 Blood Pressure 136/68 Pulse Oximetry 99 Oxygen Delivery CPAP 05/01/24 08:38 05/01/24 14:00 Temperature 98.0 F Pulse Rate 102 H 75 Respiratory Rate 18 Blood Pressure 120/65 Pulse Oximetry 95 Oxygen Delivery Room Air Intake/Output Intake/Output: Intake & Output 04/28/24 04/29/24 04/30/24 05/01/24 23:59 23:59 23:59 23:59 Intake Total 2100 3342 Balance 2100 3342 Meds/Results Medications: Active Medications Generic Name Dose Route Start Last Admin Trade Name Freq PRN Reason Stop Dose Admin Heparin Sodium (Porcine) 5,000 units 04/30/24 21:00 05/01/24 08:38 Heparin Sodium 5,000 Units/Ml Vial SUB-Q 5,000 units Q12HR SHIVAM Administration Sodium Chl
[2024-05-01 20:48] VITALS: BP 136/63; PULSE 73; RESP 18; TEMP 36.4; O2SAT 94
[2024-05-02] MEDS: PIPERACILLN/TAZ 3.375GM/NS50ML 3.375 GM/50 ML BAG IVPB ×2 (00:51→05:31)
[2024-05-02] MEDS: SODIUM CHLORIDE 0.9% IV 1,000 ML 125 ML IV CONT (05:30)
[2024-05-02 05:46] VITALS: BP 156/89; PULSE 72; RESP 20; TEMP 36.2; O2SAT 94
[2024-05-02 06:25] LABS: Hemoglobin 15.3 g/dL (14.0-18.0); Mean Corpuscular HGB Conc 31.9 g/dl (32-36); Mean Corpuscular Volume 91.1 fl (80-100); Mean Platelet Volume 10.3 fl (7.4-10.4); Platelet Count Result 150 k/mm3 (150-375); Red Blood Count 5.27 M/mm3 (4.6-6.20); Red Cell Distribution Width 13.4 % (11.5-14.5); White Blood Count 9.3 K/mm3 (4.5-10.0)
[2024-05-02 06:40] LABS: Alanine Aminotransferase 49 U/L (6-50); Albumin Level 3.8 g/dL (3.5-5.1); Alkaline Phosphatase 51 U/L (38-126); Anion Gap 7 mmol/L (4-12); Aspartate Amino Transferase 29 U/L (17-59); Bilirubin,Total 1.9 mg/dL (0.2-1.3); Blood Urea Nitrogen 12 mg/dL (9-20); Calcium 9.2 mg/dL (8.4-10.2); Carbon Dioxide 29 mmol/L (22-30); Chloride 104 mmol/L (98-107); Estimated CRCL calculation 69 ml/min; Estimated Glomerular Filt Rate > 60; Glucose 113 mg/dL (65-110); Lipase 371 U/L (23-300); Potassium 3.8 mmol/L (3.4-5.0); Sodium 140 mmol/L (137-145)
--- NOTE | 2024-05-02 07:16 | WPDGIPROGNO ---
Progress Note: A&P Assessment and Plan (1) Acute pancreatitis: Code(s): K85.90 - Acute pancreatitis without necrosis or infection, unspecified Status: Acute Assessment and Plan: clinically better, mrcp reviewed and no more pneumobilia or stone in CBD surgery on board, may need interval cholecystectomy advance diet today (2) Abdominal pain: Qualifiers: Abdominal location: right upper quadrant Qualified Code(s): R10.11 - Right upper quadrant pain Code(s): R10.9 - Unspecified abdominal pain Status: Acute Assessment and Plan: resolved (3) Colitis: Code(s): K52.9 - Noninfective gastroenteritis and colitis, unspecified Status: Acute Assessment and Plan: causing rectal bleeding iv abx leukocytosis resolved today recommend colonoscopy in about 4 weeks once episode resolves (4) Elevated LFTs: Code(s): R79.89 - Other specified abnormal findings of blood chemistry Status: Acute Assessment and Plan: trending down, probably from pancreatitis (5) Pneumobilia: Code(s): K83.8 - Other specified diseases of biliary tract Status: Acute Assessment and Plan: resolved (6) Rectal bleeding: Code(s): K62.5 - Hemorrhage of anus and rectum Status: Acute (7) Polycythemia: Code(s): D75.1 - Secondary polycythemia Status: Acute (8) Diabetes mellitus, type 2: Qualifiers: Diabetes mellitus jail insulin use: without buttermaker helper use Diabetes mellitus complication status: without complication Qualified Code(s): E11.9 - Type 2 diabetes mellitus without complications Code(s): E11.9 - Type 2 diabetes mellitus without complications Status: Acute Subjective Date/time seen: 05/02/24 07:16 Interval history: no more pain or rectal bleeding today, tolerating liquid diet Review of Systems Review of Systems: All systems reviewed & are unremarkable except as noted in HPI and below Exam Const: General: comfortable and no acute distress HENMT: Face/Nose/Sinus: Normal nares present Eyes: General: appearance normal, both eyes and all related structures Neck: Neck: no JVD Resp: Auscultation: clear to auscultation bilaterally Cardio: Rate: regular rate Rhythm: regular rhythm GI: Inspection: non-distended GI Palp: Yes Soft to palpation and No Tenderness to palpation present (GI) Auscultation: normal bowel sounds Skin: General skin exam: normal color Neuro: General: gait normal Speech: normal speech Extrem: General: normal to inspection Psych: Mental Status: mental status grossly normal Objective Data Vital Signs Vital Signs: Vital Signs - 24 hr 05/01/24 08:38 05/01/24 08:38 05/01/24 14:00 Temperature 98.0 F Pulse Rate 102 H 102 H 75 Respiratory Rate 18 Blood Pressure 120/65 Pulse Oximetry 95 Oxygen Delivery Room Air 05/01/24 20:48 05/01/24 20:00 05/02/24 05:46 Temperature 97.5 F L 97.2 F L Pulse Rate 73 72 Respiratory Rate 18 20 Blood Pressure 136/63 156/89 H Pulse Oximetry 94 94 Oxygen Delivery Room Air Intake/Output Intake/Output: Intake & Output 04/29/24 04/30/24 05/01/24 05/02/24 23:59 23:59 23:59 23:59 Intake Total 2100 4682 1350 Balance 2100 4682 1350 Meds/Results Medications: Active Medications Generic Name Dose Route Start Last Admin Trade Name Buckyq PRN Reason Stop Dose Admin Heparin Sodium (Porcine) 5,000 units 04/30/24 21:00 05/01/24 20:28 Heparin Sodium 5,000 Units/Ml Vial SUB-Q 5,000 units Q12HR SHIVAM Administration Sodium Chloride 1,000 mls @ 125 mls/hr 04/30/24 03:05 05/02/24 05:32 Normal Saline Iv IV CONT Not Given .Q8H SHIVAM Piperacillin/Tazobactam/Dextrose 3.375 gm in 50 mls @ 100 mls/hr 04/30/24 11:00 05/02/24 06:05 Zosyn 3.375 Gm/Ns 50 Ml IVPB Infused Q6HR SHIVAM Infusion Morphine Sulfate 4 mg 04/30/24 03:03 04/30/24 11:00 Morphine Sulfate (*Crx) 4 Mg/Ml Inj
[2024-05-02 08:51] VITALS: PULSE 72
[2024-05-02] MEDS: NEBIVOLOL HCL 5 MG TABLET 20 MG PO (08:51)
[2024-05-02] MEDS: PANTOPRAZOLE SODIUM IV 40 MG VIAL IV PUSH (08:52)
[2024-05-02] MEDS: HEPARIN SODIUM 5,000 UNITS/ML VIAL 5000 UNITS SUB-Q (08:52)
--- NOTE | 2024-05-02 09:56 | PM.DS ---
DS: Admitting Diagnosis Discharge Date May 02, 2024 Admitting Diagnosis Acute pancreatitis DS: Discharge Diagnosis Discharge Diagnosis (1) Leukocytosis: Code(s): D72.829 - Elevated white blood cell count, unspecified Status: Acute (2) Rectal bleeding: Code(s): K62.5 - Hemorrhage of anus and rectum Status: Acute (3) Pneumobilia: Code(s): K83.8 - Other specified diseases of biliary tract Status: Acute (4) Colitis: Code(s): K52.9 - Noninfective gastroenteritis and colitis, unspecified Status: Acute (5) Elevated LFTs: Code(s): R79.89 - Other specified abnormal findings of blood chemistry Status: Acute (6) Gastroenteritis: Code(s): K52.9 - Noninfective gastroenteritis and colitis, unspecified Status: Acute DS: Summary Hospital Course Hospital Course: 74-year-old male with PMH obesity, hyperlipidemia, hypertension sleep apnea who presents with sudden onset of generalized abdominal pain the night prior to admission. This happened after eating a cheeseburger and fries for dinner. He had nausea as well. [facility] evaluation demonstrated leukocytosis, total bilirubin 2.4, AST 230, ALT 125, alk-phos 84, lipase 9276. CT of abdomen and pelvis demonstrated wall thickening of the distal sigmoid colon/rectum compatible with infectious/inflammatory colitis, mild acute pancreatitis, extensive pneumobilia. Subsequently admitted on 04/30/2024 for acute pancreatitis, pneumobilia and colitis. As he was admitted to the floor he had a bloody bowel movement as well. MRCP performed on 04/30 demonstrated mild intra and extrahepatic biliary ductal dilation with resolution of prior pneumobilia in the common bile duct where there are no filling defects to suggest choledocholithiasis, peripancreatic edema consistent with acute interstitial pancreatitis. The patient was placed on IV fluids, pain control, ppi, antibiotics with Zosyn. He did not have any further episodes of blood per the rectum and his abdominal pain improved. Patient was seen by GI and general surgery consultants. On 05/02/2024 the patient is stable for discharge to home with his girlfriend. He has tolerated diet. He is being prescribed another 2 days of ciprofloxacin 500 mg p.o. b.i.d. for dysentery. His leukocytosis has resolved. He is scheduled for interval cholecystectomy on 05/[address] cM. His transaminitis and hyperbilirubinemia have improved. The patient was DNR during his admission. Adverse effects, risk and benefits of medications discussed to which the patient understood and agreed to take. He has been provided follow-up information with Dr. Reich as well follow-up on dysentery and further evaluation such as colonoscopy. Time Spent with Patient Time attestation: Total time spent providing and/or coordinating discharge services: Exam Const: General: comfortable and no acute distress Other: Obese. Eyes: Pupils: Equal, round and reactive pupils present Neck: Neck: supple Resp: Effort & Inspection: normal respiratory effort Auscultation: clear to auscultation bilaterally Cardio: Rate: regular rate Rhythm: regular rhythm GI: GI Palp: Yes Soft to palpation and No Tenderness to palpation present (GI) Extrem: General: no edema DS: Data Data Completed and Pending Labs on day of discharge: Labs from last 24 hours 05/02/24 06:03 WBC 9.3 RBC 5.27 Hgb 15.3 Hct 48.0 MCV 91.1 D MCH 29.0 MCHC 31.9 L RDW 13.4 Plt Count 150 MPV 10.3 Sodium 140 Potassium 3.8 Chloride 104 Carbon Dioxide 29 Anion Gap 7 BUN 12 D Creatinine 0.90 Estim Creat Clear Calc 69 Estimated GFR > 60 Glucose 113 H Calcium 9.2 Total Bilirubin 1.9 H AST 29 ALT 49 Alkaline Phosphatase 51 Total Protein 6.0 L Albumin 3.8 Lipase 371 H Discharge Plan Discharge Attending physician on discharge: Rebecca Hays Consulting providers: Juan Manuel
== END 2024-05-02 10:55 | disposition home or self-care (01) | DRG 391 ==
LOC: ANHED 04-30 03:05 → ANH3MEDSUR 05-01 10:47
PROVIDERS: Nurse Practitioner Family; Admitting Provider Internal Medicine; Emergency Provider Emergency Medicine; PCP Family Medicine; Visit Provider General Practice
DX: K52.9 Noninfective gastroenteritis and colitis, unspecified (principal); K85.90 Acute pancreatitis without necrosis or infection, unspecified; K62.5 Hemorrhage of anus and rectum; K83.8 Other specified diseases of biliary tract; I70.0 Atherosclerosis of aorta; I10 Essential (primary) hypertension; D75.1 Secondary polycythemia; D72.829 Elevated white blood cell count, unspecified; E78.5 Hyperlipidemia, unspecified; E11.9 Type 2 diabetes mellitus without complications; N20.0 Calculus of kidney; M48.061 Spinal stenosis, lumbar region without neurogenic claudication; G47.30 Sleep apnea, unspecified; Z87.442 Personal history of urinary calculi; Z95.5 Presence of coronary angioplasty implant and graft; Z87.891 Personal history of nicotine dependence
CPT/HCPCS: 36415; 74177; 74183; 76376; 80053; 81001; 83690; 83735; 85014; 85018; 85025; 85027; 85055; 87045; 87427; 87449; 87493; 93005; 96361; 96374; 96375; 99285; A9270; A9577; G0378; J1644; J2270; J2405; J2470; J2543; J7030; Q9967

== ENCOUNTER 2024-05-06 16:17 | Inpatient (IN) | payer MEDICARE, SELFPAY ==
[2024-05-02 12:38] VITALS: BMI 34.7
--- NOTE | 2024-05-02 12:45 | PC.NURSE ---
Report to the Outpatient Waiting Room, entrance under the green pavilion located off [facility], at time _0900_ on date _[id number]_. Planned Procedure Time: _1100_. Time changes happen often and if your time is changed the preop area will call you the afternoon before. - You and your visitor will be asked to self-screen and do not enter if you have any COVID symptoms. - A mask is optional within the hospital at this time. Patients may have clear liquids (water, carbonated beverages, clear teas, apple juice) until 3 hours prior to surgery with a maximum of 20 ounces. - No food from midnight until time of surgery Take the following medications with a SIP of water the morning of surgery: ____None DO NOT STOP ANY OF YOUR OTHER PRESCRIPTION MEDICATIONS PRIOR TO SURGERY ?EXCEPT THE FOLLOWING Medications to discontinue per physician None Date to take last dose Please no make-up, nail lithuanian, hairspray, perfume, deodorant, or body powder the day of surgery. No jewelry (including any body piercings) or valuables the day of surgery, leave them at home. Please take a shower or bath the night before, or the morning of, surgery with an antibacterial soap. Wear comfortable, loose fitting clothing. - Jewelry must be removed prior to entering the operating room. Rings and piercings that are not removed may be cut off. - The hospital will not accept responsibility for valuables. - Please leave all valuables, including medications, at home the day of surgery. If you are going home after surgery, a licensed electric lift truck driver must drive you home. - NO public transportation without another adult if you receive anesthesia. - We recommend that an adult stay with you for 24 hours following discharge. - We also recommend that you do not drive, make important decision, drink alcoholic beverages, or take any drugs that were not prescribed by your health care provider for at least 24 hours after your discharge time. Follow any additional instructions given to you from your surgeon. If you or anyone in your household have experienced Covid symptoms in the past week, please notify your surgeon or the nurse liaison at the phone number below for possible testing. Telephone instructions given to __Ron___and asked if any additional questions and then verbalized understanding. Patient advised to call surgeon office or pre surgery nurse liaison [phone] if any additional questions.
[2024-05-06] VITALS (17 sets, daily range): BP systolic 120–163; BP diastolic 53–97; PULSE 61–83; RESP 14–22; TEMP 36.4–36.9; O2SAT 90–99; BMI 33.3
--- NOTE | ~2024-05-06 | XR_ITS ---
EXAMINATION: XR UGI water soluble wo kub DATE: 05/07/2024 12:34 INDICATION: Status post repair of a duodenal enterotomy. TECHNIQUE: A brine maker CT image was obtained. Patient drank water-soluble contrast and multiple fluorosco pic images were obtained of the esophagus, stomach and proximal small bowel. Additional AP and left a nd right oblique radiographs were obtained. A total of 198 fluoroscopic images and 9 overhead radiogr aphs were obtained. Fluoroscopy exposure time was 2.6 minutes. Total DAP was 162.697 Gycm^2 FINDINGS: There was some esophageal dysmotility with weakness of the primary peristaltic wave resulting in pool ing of contrast-filled esophagus. No esophageal mass or stricture. There was no hiatal hernia. The st omach appears normal. There is a subtle tiny leak of contrast which extends superolaterally from the region of the gastroduodenal junction, indeterminate whether from the pylorus or duodenal bulb but wo uld favor the latter. No evident contrast extension along the right upper quadrant percutaneous drain age catheter. The duodenum and visualized jejunum appears otherwise unremarkable. IMPRESSION: 1. Tiny leak of contrast in the region of the gastrojejunal junction and favor the duodenal bulb of t he pylorus. Reviewed, dictated and finalized at location A. IMPRESSION: 1. Tiny leak of contrast in the region of the gastrojejunal junction and favor the duodenal bulb of the pylorus.
--- NOTE | ~2024-05-06 | XR_ITS ---
XR chest 2V 05/08/2024 13:35 Indication: Hypoxia Procedure: 2 view chest Comparison: 02/17/2021 Findings: Shallow inspiration. Bibasilar infiltrates may represent atelectasis or pneumonia. No signi ficant effusion. No pneumothorax. There is a catheter overlying the right abdomen, nonspecific. Impression: 1: Bibasilar infiltrates may represent atelectasis or pneumonia. Shallow inspiration with crowding of the pulmonary vascular structures. Reviewed, dictated and finalized at location B. Impression: 1: Bibasilar infiltrates may represent atelectasis or pneumonia. Shallow inspir ation with crowding of the pulmonary vascular structures.
[2024-05-06] MEDS: LACTATED RINGERS 1,000 ML 30 ML IV CONT ×2 (09:40→14:16)
[2024-05-06] MEDS: ACETAMINOPHEN 500 MG TABLET 1000 MG PO (09:51)
[2024-05-06] MEDS: INDOCYANINE GREEN 25 MG VIAL WITH DILUENT 3.75 MG IV PUSH (09:52)
[2024-05-06 10:01] LABS: Amylase 64 U/L (30-110); Lipase 245 U/L (23-300)
--- NOTE | 2024-05-06 10:06 | WPDANESEPPF ---
Anes - Initial Pre Proc Eval Procedure: Operation Date: 05/06/24 11:00 Proposed Procedures p Laparoscopic Robotic Assisted Cholecystectomy, Possible Open - Rayray Mc MD Date/Time: 05/06/24 10:06 Surgeon: Rayray Mc MD Pre Op Diagnosis: biliary pancreatitis Patient Data Age: 74 Gender: M Height: 1.65 m Weight: 94.5 kg Allergies Allergy/AdvReac Type Severity Reaction Status Date / Time niacin Allergy Unknown Unknown Verified 05/02/24 12:36 NSAIDS (Non-Steroidal Allergy Unknown Anemia Verified 05/02/24 12:36 Anti-Inflamma aspirin AdvReac Unknown gi bleed Verified 05/05/24 12:39 Home Medications Medication Instructions Recorded Confirmed Type acyclovir 5 % topical ointment 1 applic topical 6XD 7 days #10 11/22/22 05/02/24 Rx (Zovirax) grams fluorouracil 5 % topical cream 1 applic topical PRN PRN Rash 12/27/23 05/02/24 History rosuvastatin 20 mg tablet (Crestor) 20 mg PO DAILY #90 tabs 12/31/23 05/02/24 Rx hydrocodone 5 mg-acetaminophen 325 1 tablet PO Q6H PRN pain #30 tabs 03/24/24 05/02/24 Rx mg tablet hydrochlorothiazide 25 mg tablet 25 mg PO DAILY 04/30/24 05/02/24 History lisinopril 10 mg tablet 10 mg PO DAILY 04/30/24 05/02/24 History nebivolol 20 mg tablet 20 mg PO DAILY 04/30/24 05/02/24 History pantoprazole 40 mg tablet,delayed 40 mg PO QAM 04/30/24 05/02/24 History release sildenafil (pulm.hypertension) 20 20 mg PO DAILY PRN Sexual Activity 04/30/24 05/02/24 History mg tablet ciprofloxacin HCl 500 mg tablet 500 mg PO Q12H 2 days #4 tabs 05/02/24 05/02/24 Rx Laboratory Tests 05/06/24 09:43 Amylase 64 U/L (30-110) Lipase 245 U/L (23-300) Patient hx anesthesia problems: none Family hx anesthesia problems: none Results Review: All pre-operative results and documents have been reviewed as part of the pre-operative evaluation. [facility] Past Medical History Medical History Abdominal aortic atherosclerosis Angina pectoris, unstable Erectile dysfunction Excess ear wax History of blood transfusion Hyperlipidemia Hypertension Kidney stones Leukocytosis Lumbar spinal stenosis Obesity (BMI 30-39.9) Polycythemia Rectal bleeding Sleep apnea with use of continuous positive airway pressure (CPAP) Stomach ulcer Surgical History Surgical History History of toe surgery Hx of heart artery stent Status post phlebectomy Family History Family History Other Cancer Family history of cardiovascular disease Family history of elevated blood lipids Hypertension Social History Social History (Updated 05/06/24 @ 10:06 by Jb Jeffery MD) Smoking packs per day: 1 Smoking cigarettes per day: 20.0 Years smoked: 15 Smoking pack-years: 15.00 Smoking status: Former smoker Tobacco type: cigarettes Smoking end date: 05/02/85 Alcohol intake: former Drinks per week: 1 Substance use type: does not use Do You Feel Safe in your Home?: Yes Lack of Transportation: No Lack of Food: Never True Current Housing: I Have Housing Concerned About Future Housing: No Difficulty Paying Gas/Electric Bills: No Difficulty Paying for Meds: No Currently Unemployed: No Education: Associate Degree Difficulty w/ Childcare or Family Care: No Living arrangements: with family Spiritual care concerns: No Anes - Eval Final PreProcedure Day of Procedure 05/06/24 10:06 Patient weight: obese Heart: regular rate and rhythm Lungs: clear to auscultation Airway: Mallampati scale class II Neurological: alert and oriented Last oral intake: >/= 8 hours ASA classification: III Emergent: no Anesthetic plan: proceed Anesthesia type and monitoring: general ETT and standard monitoring Results Review: All pre-operative results and documents have been reviewed as part of the pre-o
--- NOTE | 2024-05-06 10:36 | WPDHPUPDATE1 ---
History and Physical Update Update Date/Time: 05/06/24 10:36 History and Physical has been reviewed, including an updated exam of the patient. There are NO changes in the patient's condition. Risks, benefits, and alternatives have been discussed and questions answered. Patient agrees to proceed with procedure.
[2024-05-06] MEDS: ceFAZolin 2 GM/D5W 50 ML 2 GM/50 ML BAG IVPB (11:03)
[2024-05-06] MEDS: BUPivacaine HCL 0.5% 10 ML AMP 30 ML INFILTRATE (11:44)
[2024-05-06] MEDS: LIDO 1%/EPINEPHRINE 1:100,000 50 ML VIAL 30 ML INFILTRATE (11:45)
--- NOTE | 2024-05-06 15:08 | P.OPB_ITS ---
Procedure Note - Brief Procedure Note - Brief Date of procedure: 05/06/24 Recent history of gallstone pancreatitis, cholelithiasis Post-op diagnosis: Other (Severe chronic cholecystitis secondary to cholelithiasis, recent history of gallstone pancreatitis) Procedure performed: Robotic assisted diagnostic laparoscopy with placement of cholecystostomy tube and removal of gallstone. Surgeon: Rayray Mc MD Road Engineer Freight: NISA Rodriguez Anesthesia: GETA Findings: Patient had very severe chronic cholecystitis secondary to cholelithiasis. The gallbladder was completely envelop within omentum and densely adherent to the duodenum. Patient had least 1 large gallstone within the gallbladder. The wall was chronically thickened and decompressed around the gallstones. Estimated blood loss (mL): 50 Urine output (mL): 400 Drains: Yes (Irish cholecystostomy tube right upper quadrant, 15 Irish Tevin drain RUQ) Packing: No Pathology: Yes (Gallstone only sent to pathology) Complications: No immediate complications Condition: Stable Disposition: PACU
[2024-05-06] MEDS: fentaNYL CITRATE INJ (*CRX) 100 MCG/2 ML VIAL 25 MCG IV PUSH ×3 (15:10→16:10)
--- NOTE | 2024-05-06 16:37 | ADMGEN ---
This patient, Derek Garrison Jose Miguel, was admitted to Medical Room 257-01. Patient/family oriented to hospital policies and general routines including ID bracelet, bed and alarms, visiting hours, pain management, procedures, bathroom and other care routines, personal items, smoking policy, room service/diet, and visiting hours. Information on how to activate the Rapid Response Team has been discussed. Patient/Family are encouraged to report perceived risks to care and to ask questions if they do not understand what they are told or what they should do.
[2024-05-06] MEDS: DEXTROSE 5%/LACTATED RINGERS 1,000 ML 120 ML IV CONT (16:48)
[2024-05-06] MEDS: oxyCODONE HCL (*CRX) 5 MG TAB IR PO ×2 (16:50→22:21)
[2024-05-06] MEDS: HYDROmorphone HCL INJ (*CRX) 1 MG/ML SYR 0.5 MG IV PUSH (19:18)
[2024-05-06] MEDS: ROSUVASTATIN 20 MG TABLET PO (20:00)
[2024-05-06] MEDS: NEBIVOLOL HCL 5 MG TABLET 20 MG PO (20:00)
[2024-05-06] MEDS: HYDROcodone/acetaminophen (*CRX) 5-325 MG TABLET 1 TAB PO (20:01)
[2024-05-06] MEDS: hydroCHLOROthiazide 25 MG TABLET PO (20:01)
[2024-05-06] MEDS: lisinopriL 10 MG TABLET PO (20:01)
[2024-05-07] VITALS (8 sets, daily range): BP systolic 114–145; BP diastolic 60–69; PULSE 74–95; RESP 16–20; TEMP 36.8–37.8; O2SAT 83–95
[2024-05-07] MEDS: DEXTROSE 5%/LACTATED RINGERS 1,000 ML 120 ML IV CONT ×2 (00:55→09:27)
[2024-05-07 05:57] LABS: Basophils Percent Auto 0.2 % (0.2-1.2); Hematocrit 47.3 % (42.0-52.0); Hemoglobin 15.2 g/dL (14.0-18.0); Immature Granulocyte Absolute 0.12 K/mm3 (0.00-0.031); Immature Granulocyte Percent A 0.6 % (0-0.5); Lymphocytes Absolute Auto 1.27 K/mm3 (0.9-3.2); Lymphocytes Percent Auto 6.8 % (18.3-44.2); Mean Corpuscular HGB Conc 32.1 g/dl (32-36); Mean Corpuscular Hemoglobin 29.1 pg (26-34); Mean Corpuscular Volume 90.6 fl (80-100); Mean Platelet Volume 10.7 fl (7.4-10.4); Monocytes Absolute Auto 1.5 K/mm3 (0.1-0.6); Monocytes Percent Auto 8.2 % (2.6-8.5); Neutrophils Absolute Auto 15.7 K/mm3 (1.3-6.7); Neutrophils Percent Auto 84.2 % (45.5-73.1); Platelet Count Result 193 k/mm3 (150-375); Red Blood Count 5.22 M/mm3 (4.6-6.20); Red Cell Distribution Width 13.3 % (11.5-14.5); White Blood Count 18.6 K/mm3 (4.5-10.0)
[2024-05-07 06:14] LABS: Alanine Aminotransferase 78 U/L (6-50); Albumin Level 3.6 g/dL (3.5-5.1); Alkaline Phosphatase 44 U/L (38-126); Anion Gap 10 mmol/L (4-12); Aspartate Amino Transferase 70 U/L (17-59); Bilirubin,Total 1.5 mg/dL (0.2-1.3); Blood Urea Nitrogen 16 mg/dL (9-20); Calcium 8.6 mg/dL (8.4-10.2); Carbon Dioxide 28 mmol/L (22-30); Chloride 101 mmol/L (98-107); Estimated CRCL calculation 75 ml/min; Estimated Glomerular Filt Rate > 60; Glucose 145 mg/dL (65-110); Potassium 3.8 mmol/L (3.4-5.0); Sodium 139 mmol/L (137-145)
[2024-05-07] MEDS: HYDROcodone/acetaminophen (*CRX) 5-325 MG TABLET 1 TAB PO (06:33)
[2024-05-07] MEDS: PANTOPRAZOLE SODIUM IV 40 MG VIAL IV PUSH (08:11)
[2024-05-07] MEDS: TAMSULOSIN HCL 0.4 MG CAPSULE PO (12:55)
[2024-05-07] MEDS: oxyCODONE HCL (*CRX) 5 MG TAB IR PO (12:55)
[2024-05-07] MEDS: ONDANSETRON INJ 4 MG/2 ML VIAL IV PUSH (12:59)
--- NOTE | 2024-05-07 13:56 | WPDANESPN ---
Anes - Prog Note Post-Op Date/Time: 05/07/24 13:56 Cardiovascular status: normal Respiratory status: normal Airway patency: baseline Mental status: baseline Post-Op hydration status: normal Vital Signs: Last Vital Signs Temp 36.8 C 05/07/24 13:14 Pulse 75 05/07/24 13:14 Resp 20 05/07/24 13:14 BP 127/62 05/07/24 13:14 Pulse Ox 93 05/07/24 13:14 O2 Del Method Nasal Cannula 05/07/24 08:00 O2 Flow Rate 1 05/07/24 08:00 Pain Score (VAS): 0 I/O: Intake & Output 05/06/24 05/07/24 05/07/24 23:59 07:59 15:59 Intake Total 2070 559 0976 Output Total 650 1030 Balance 470 -56 1440 Laboratory Tests 05/07/24 04:58 05/07/24 04:58 05/07/24 04:58 WBC 18.6 H RBC 5.22 Hgb 15.2 Hct 47.3 MCV 90.6 MCH 29.1 MCHC 32.1 RDW 13.3 Plt Count 193 MPV 10.7 H Immature Gran % (Auto) 0.6 H Neut % (Auto) 84.2 H Lymph % (Auto) 6.8 L Hudspeth % (Auto) 8.2 Eos % (Auto) 0.0 Baso % (Auto) 0.2 Lymph # (Auto) 1.27 Hudspeth # (Auto) 1.5 H Eos # (Auto) 0.0 Baso # (Auto) 0.0 Abs Immat Gran (auto) 0.12 H Absolute Neuts (auto) 15.7 H Absolute Nucleated RBC 0.000 Nucleated RBC % 0.0 Sodium 139 Potassium 3.8 Chloride 101 Carbon Dioxide 28 Anion Gap 10 BUN 16 Creatinine 0.80 Estim Creat Clear Calc 75 Estimated GFR > 60 Glucose 145 H Calcium 8.6 Total Bilirubin 1.5 H AST 70 H ALT 78 H Alkaline Phosphatase 44 Total Protein 6.0 L Albumin 3.6 Post-procedural complaints: none Patient Feedback: Patient satisfied with anesthetic care.
--- NOTE | 2024-05-07 15:43 | PM.PNGS ---
Progress Note: A&P Assessment and Plan (1) Cholelithiasis: Qualifiers: Biliary obstruction: without biliary obstruction Cholecystitis presence: without cholecystitis Cholelithiasis location: gallbladder Qualified Code(s): K80.20 - Calculus of gallbladder without cholecystitis without obstruction Code(s): K80.20 - Calculus of gallbladder without cholecystitis without obstruction Status: Chronic Assessment and Plan: Patient is postop day 1 following robotic-assisted diagnostic laparoscopy with placement of cholecystostomy tube and removal of a large gallstone. During surgery, he was found to have severe chronic cholecystitis secondary to cholelithiasis. The gallbladder was densely adherent to the duodenum. He has a ARISTIDES drain and cholecystostomy tube in place, which are being monitored. Water-soluble upper GI ordered this morning to evaluate for any duodenal perforation prior to advancing his diet. Imaging was reviewed by Dr. Mc and he appears to have a tiny leak of contrast likely from the area of the duodenum. This could either be related to a tiny hole in the duodenum or this could be contrast refluxing up into the gallbladder from a cholecystoduodenal fistula. Will make him NPO for now and start him on PPN. Will also add IV antibiotics and IV antifungals for a possible upper GI perforation. Will continue to monitor for now. Repeat labs again in the morning. (2) Acute pancreatitis: Code(s): K85.90 - Acute pancreatitis without necrosis or infection, unspecified Status: Acute Assessment and Plan: History of gallstone pancreatitis and admitted from 04/30/24 - 05/02/24. (3) Leukocytosis: Code(s): D72.829 - Elevated white blood cell count, unspecified Status: Acute Assessment and Plan: White blood cell count up to 18,000 today. This could be reactive to surgery or also related to possibly a tiny duodenal perforation. Will continue IV antibiotics/antifungals. Repeat labs tomorrow. Plan I have discussed the patient's case and plan of care with Dr. Mc. Subjective Subjective Date/Time Seen: 05/07/24 15:43 Post Op day: 1 (Robotic assisted diagnostic laparoscopy with placement of cholecystostomy tube and removal of gallstone) Patient reports: no new complaints, voiding w/o difficulty, flatus, bowel movement, nausea and afebrile Interval history: Patient seen today after the water-soluble upper GI this morning. He reports having some nausea and abdominal pain during the test, but this has improved since getting Zofran and pain medication. He reports flatus and had one small liquid BM after drinking the contrast. His abdominal pain and incisional soreness has been well controlled. No other complaints at this time. Exam Const: General: comfortable and no acute distress GI: Inspection: non-distended and incision (incisions dry and glue intact) GI Palp: Yes Soft to palpation, Yes Tenderness to palpation present (GI) (mild tenderness in epigastric area and near incisions), No Guarding due to palpation present (GI) and No Rebound tenderness present Auscultation: normal bowel sounds Other: RUQ ARISTIDES drain with scant serosanguineous drainage, reportedly recently emptied by staff. Gauze dressing with moderate amount of serosanguineous shadow drainage. RUQ cholecystostomy tube with scant bilious-appearing drainage, gauze dressing dry and intact. Neuro: General: moves all extremities and no focal motor deficits Extrem: General: no calf tenderness and no edema Psych: Mental Status: mental status grossly normal Insight: Good insight present (Psych) Objective Data Vital Signs Vital Signs: Vital Signs - 24 hr 05/06/24 15:50 05/06/24 16:05 05/06/24 18:11 Temperature Pulse Rate 62 67 Respiratory Rate 22 H 18 Blood Pressure 156/74 H 153/79 H Pulse Oximetry 95 96 96 Oxygen Delivery Nasal Cannula Nasal Cannula Nasal Cannula Oxygen Flow Rate 2 2 2 05/06/24 16:30
--- NOTE | 2024-05-07 17:15 | W.PM.PROC2 ---
Procedure Note - Detailed Date of Procedure 05/06/24 Pre-op Diagnosis Chronic Cholecystitis secondary to gallstones, recent history of gallstone pancreatitis. Post-op Diagnosis Other ( Severe chronic cholecystitis secondary to cholelithiasis.) Procedure Performed Robotic assisted diagnostic laparoscopy with placement of cholecystostomy tube and removal of gallstone. Surgeon Rayray Mc MD Hedis Specialist Ruddy Kidd, NISA Anesthesia General Indications Patient is a 74-year-old gentleman who was admitted to the hospital last week with what appeared to be gallstone pancreatitis. He had lipase level 9000 and actually had significant amount air in his biliary tree. He had not undergone any endoscopic manipulation of his biliary tree and has never had a prior sphincterotomy. He improved from is acute pancreatitis and was sent home and was brought back to the operating now for an interval robotic assisted laparoscopic cholecystectomy. Findings The patient had a very severe chronic cholecystitis secondary to gallstones. The gallbladder was partially involved within the omentum with very dense chronic adhesions. The 1st portion of the duodenum was completely stuck and adherent to the fundus of the gallbladder to the point that I could not even find the fundus of the gallbladder dissected for about 30minutes until I found it. A single large gallstone ruddy about 2cm in diameter was removed from the gallbladder. The inflammation and scarring was so dense and gallbladder surgery was so difficult that I eventually abandoned trying to dissect out the rest of the gallbladder other than the upper 1/3 of the gallbladder and opened the top of gallbladder removed the gallstone and placed a cholecystostomy tube laparoscopically with the aid of the Smart[employer] robot. During the dissection which was very very difficult trying to get the duodenum off of the gallbladder I made a small enterotomy in the duodenum which only measured about 1 to 2 mm in diameter. This was repaired with a single 3-0 PDS suture. After about dissecting for about 90minutes and I was not making any more progress towards getting to the infundibular gallbladder without out possibly further injuring the duodenum I decided to perform only a cholecystostomy tube placement and removed the gallstone within the gallbladder. A 12 Bengali mushroom catheter was placed into the gallbladder for cholecystostomy tube drain. Gallstone was removed and sent to pathology. Description of Procedure After informed consent was obtained patient brought to the operating room placed supine position and general endotracheal anesthesia was administered. The abdomen was then prepped and draped usual sterile fashion. A time-out was then performed correctly identifying the patient as well as procedure to be performed. He was given perioperative IV antibiotics. First started by placing a 5mm Optiview port in the left upper quadrant to gain access into the abdomen. I insufflated to adequate pneumoperitoneum of 15mmHg CO2. I then placed additional robotic trocar ports across the mid and lower abdomen. Initially just with the regular laparoscopic could not even find the gallbladder in the right upper quadrant. After the [employer] robot was docked to the patient's bedside and the arms attached to the robotic ports and robotic instruments advanced into the abdomen I scrubbed out the procedure sent down at the console to perform dissection robotically. With the robotic dissection robotic instruments I was able to lift up the right lobe of the liver and left lobe liver and found a very severe chronically inflamed process in the right upper quadrant. The gallbladder was enveloped within portions of the omentum and as I continued to finally dissect down the omentum off of the edge the liver I was able to finally find the gallbladder after dissecting about 30 to 45 minutes. The dome of the gallbladder came into view and I continued my dissecti
[2024-05-07 17:18] LABS: Basophils Percent Auto 0.2 % (0.2-1.2); Eosinophils Percent Auto 0.1 % (0-4.4); Hematocrit 46.5 % (42.0-52.0); Hemoglobin 15.4 g/dL (14.0-18.0); Immature Granulocyte Absolute 0.07 K/mm3 (0.00-0.031); Immature Granulocyte Percent A 0.4 % (0-0.5); Lymphocytes Absolute Auto 1.17 K/mm3 (0.9-3.2); Mean Corpuscular HGB Conc 33.1 g/dl (32-36); Mean Corpuscular Hemoglobin 29.8 pg (26-34); Mean Corpuscular Volume 90.1 fl (80-100); Mean Platelet Volume 10.1 fl (7.4-10.4); Monocytes Absolute Auto 1.3 K/mm3 (0.1-0.6); Monocytes Percent Auto 7.9 % (2.6-8.5); Neutrophils Absolute Auto 14.2 K/mm3 (1.3-6.7); Neutrophils Percent Auto 84.4 % (45.5-73.1); Platelet Count Result 173 k/mm3 (150-375); Red Blood Count 5.16 M/mm3 (4.6-6.20); Red Cell Distribution Width 13.5 % (11.5-14.5); White Blood Count 16.8 K/mm3 (4.5-10.0)
[2024-05-07 17:25] LABS: Partial Thromboplastin Time 29.8 Seconds (22.3-36.8)
[2024-05-07 17:28] LABS: Alanine Aminotransferase 65 U/L (6-50); Albumin Level 3.8 g/dL (3.5-5.1); Alkaline Phosphatase 48 U/L (38-126); Anion Gap 5 mmol/L (4-12); Aspartate Amino Transferase 50 U/L (17-59); Bilirubin,Total 1.8 mg/dL (0.2-1.3); Blood Urea Nitrogen 15 mg/dL (9-20); Calcium 9.2 mg/dL (8.4-10.2); Carbon Dioxide 33 mmol/L (22-30); Chloride 101 mmol/L (98-107); Estimated CRCL calculation 67 ml/min; Estimated Glomerular Filt Rate > 60; Glucose 166 mg/dL (65-110); Magnesium 1.9 mg/dL (1.6-2.3); Potassium 3.7 mmol/L (3.4-5.0); Sodium 139 mmol/L (137-145)
[2024-05-07 17:37] LABS: Transferrin 227 mg/dL (206-381)
[2024-05-07] MEDS: PIPERACILLN/TAZ 3.375GM/NS50ML 3.375 GM/50 ML BAG IVPB ×2 (17:43→23:45)
[2024-05-07 17:52] LABS: Glucose Point of Care 170 mg/dl (65-105)
[2024-05-07] MEDS: AMINO ACIDS 4.25%/D5W/LYTES/CA 2,000 ML 80 ML IV CONT (18:01)
[2024-05-07] MEDS: FAT EMULSIONS IV 20% 250 ML 20.83 ML IVPB (18:02)
[2024-05-07] MEDS: FLUCONAZOLE 100 MG/NACL 50 ML 100 MG/50 ML BTL 50 MG IVPB (18:14)
[2024-05-07] MEDS: ROSUVASTATIN 20 MG TABLET PO (21:56)
[2024-05-07] MEDS: ENALAPRILAT 1.25 MG/ML VIAL 2.5 MG IV PUSH (22:00)
[2024-05-07 23:40] LABS: Glucose Point of Care 159 mg/dl (65-105)
[2024-05-08] VITALS (13 sets, daily range): BP systolic 140–178; BP diastolic 61–81; PULSE 62–87; RESP 16–18; TEMP 36.6–37.1; O2SAT 91–97; BMI 33.3
[2024-05-08 05:54] LABS: Basophils Absolute Auto 0.1 K/mm3 (0.0-0.1); Basophils Percent Auto 0.3 % (0.2-1.2); Eosinophils Absolute Auto 0.1 K/mm3 (0-0.3); Eosinophils Percent Auto 0.3 % (0-4.4); Hematocrit 46.7 % (42.0-52.0); Hemoglobin 14.9 g/dL (14.0-18.0); Immature Granulocyte Percent A 0.6 % (0-0.5); Lymphocytes Percent Auto 7.4 % (18.3-44.2); Mean Corpuscular HGB Conc 31.9 g/dl (32-36); Mean Corpuscular Hemoglobin 29.4 pg (26-34); Mean Corpuscular Volume 92.1 fl (80-100); Mean Platelet Volume 9.9 fl (7.4-10.4); Monocytes Absolute Auto 1.3 K/mm3 (0.1-0.6); Monocytes Percent Auto 8.3 % (2.6-8.5); Neutrophils Absolute Auto 13.4 K/mm3 (1.3-6.7); Neutrophils Percent Auto 83.1 % (45.5-73.1); Platelet Count Result 164 k/mm3 (150-375); Red Blood Count 5.07 M/mm3 (4.6-6.20); Red Cell Distribution Width 13.4 % (11.5-14.5); White Blood Count 16.2 K/mm3 (4.5-10.0)
[2024-05-08] MEDS: METOPROLOL TARTRATE INJ 5 MG/5 ML VIAL IV PUSH (06:07)
[2024-05-08 06:13] LABS: Alanine Aminotransferase 52 U/L (6-50); Albumin Level 3.6 g/dL (3.5-5.1); Alkaline Phosphatase 49 U/L (38-126); Anion Gap 5 mmol/L (4-12); Aspartate Amino Transferase 35 U/L (17-59); Bilirubin,Total 1.8 mg/dL (0.2-1.3); Blood Urea Nitrogen 16 mg/dL (9-20); Calcium 9.3 mg/dL (8.4-10.2); Carbon Dioxide 35 mmol/L (22-30); Chloride 99 mmol/L (98-107); Estimated CRCL calculation 67 ml/min; Estimated Glomerular Filt Rate > 60; Glucose 152 mg/dL (65-110); Magnesium 1.9 mg/dL (1.6-2.3); Phosphorus 2.6 mg/dL (2.5-4.5); Sodium 139 mmol/L (137-145)
[2024-05-08 06:17] LABS: Glucose Point of Care 149 mg/dl (65-105)
[2024-05-08] MEDS: PIPERACILLN/TAZ 3.375GM/NS50ML 3.375 GM/50 ML BAG IVPB ×4 (06:18→23:26)
[2024-05-08] MEDS: FLUCONAZOLE 100 MG/NACL 50 ML 100 MG/50 ML BTL 50 MG IVPB (08:23)
[2024-05-08] MEDS: PANTOPRAZOLE SODIUM IV 40 MG VIAL IV PUSH (08:23)
[2024-05-08] MEDS: ENALAPRILAT 1.25 MG/ML VIAL 2.5 MG IV PUSH ×2 (08:23→21:12)
[2024-05-08] MEDS: DEXTROSE 5%/LACTATED RINGERS 1,000 ML 20 ML IV CONT (10:23)
[2024-05-08 12:14] LABS: Glucose Point of Care 154 mg/dl (65-105)
--- NOTE | 2024-05-08 12:42 | PM.PNGS ---
Progress Note: A&P Assessment and Plan (1) Cholelithiasis: Qualifiers: Cholelithiasis location: gallbladder Cholecystitis presence: without cholecystitis Biliary obstruction: without biliary obstruction Qualified Code(s): K80.20 - Calculus of gallbladder without cholecystitis without obstruction Code(s): K80.20 - Calculus of gallbladder without cholecystitis without obstruction Status: Chronic Assessment and Plan: Patient is postop day 2 following robotic-assisted diagnostic laparoscopy with placement of cholecystostomy tube and removal of a large gallstone. During surgery, he was found to have severe chronic cholecystitis secondary to cholelithiasis. The gallbladder was densely adherent to the duodenum. He has a ARISTIDES drain and cholecystostomy tube in place, which are being monitored. Drainage from the ARISTIDES drain today appears slightly bile-tinged. Upper GI yesterday showed a tiny leak of contrast from the duodenum, which could be from a tiny hole in the duodenum or this could be contrast refluxing up into the gallbladder from a cholecystoduodenal fistula. Will keep him NPO again today with PPN. Will continue low rate of maintenance IV fluids to equal 100 mL/hr with the PPN. Continue IV Zosyn and fluconazole for possible upper GI perforation. (2) Acute pancreatitis: Code(s): K85.90 - Acute pancreatitis without necrosis or infection, unspecified Status: Acute Assessment and Plan: History of gallstone pancreatitis and admitted from 04/30/24 - 05/02/24. (3) Leukocytosis: Code(s): D72.829 - Elevated white blood cell count, unspecified Status: Acute Assessment and Plan: WBC count down slightly today to 16.2. Low grade fever around 5 pm last night. He is afebrile this morning. He is only having mild RUQ pain at the location of his drains. Will continue IV antibiotics/antifungals. Repeat labs tomorrow. (4) Hypoxia: Code(s): R09.02 - Hypoxemia Status: Acute Assessment and Plan: Unable to wean off of oxygen and they actually had to increase his oxygen to 3 liters due to O2 desaturation. No chest pain or shortness of breath. Encouraged using the IS, which is at the bedside. Will also order a chest x-ray today. Plan I have discussed the patient's case and plan of care with Dr. Mc. Subjective Subjective Date/Time Seen: 05/08/24 10:42 Post Op day: 2 (Robotic assisted diagnostic laparoscopy with placement of cholecystostomy tube and removal of gallstone) Patient reports: no new complaints, feels better, flatus, bowel movement (x2 yesterday) and fever (temp 100.1F last night around 1700) Interval history: Patient feeling well today. He is only having some mild abdominal pain at the area of his drains in the RUQ. No other abdominal pain. He reports flatus and 2 bowel movements yesterday. It is noted that he had a temperature of 100.1F around 5pm yesterday. He was also put on oxygen after surgery, which was weaned down but he required increased oxygen needs overnight. He is now on 3 liters of O2. He denies any chest pain or shortness of breath. He has an IS at the bedside and said he was educated on how to use it. Other vital signs are all stable. No other complaints at this time. He has been ambulating in the room without difficulty. No nausea or vomiting. Exam Const: General: comfortable and no acute distress Orientation/consciousness: patient oriented x3 Resp: Effort & Inspection: normal respiratory effort Auscultation: clear to auscultation bilaterally Cardio: Rate: regular rate Rhythm: regular rhythm GI: Inspection: non-distended and incision (incisions dry and glue intact) GI Palp: Yes Soft to palpation, Yes Tenderness to palpation present (GI) (RUQ tenderness and tenderness near drains), No Guarding due to palpation present (GI) and No Rebound tenderness present Auscultation: normal bowel sounds Other: RUQ ARISTIDES drain with scant serosanguineous drainage that al
[2024-05-08] MEDS: LIDOCAINE HCL 1% PF INJ 5 ML VIAL INFILTRATE (15:15)
[2024-05-08] MEDS: AMINO ACIDS 5%/D15W/E-LYTES/CA 2,000 ML with MULTIVITAMINS-12 INJ VIAL 1 2.5 ML, MULTIV... 40 ML IV CONT (16:28)
[2024-05-08] MEDS: FAT EMULSIONS IV 20% 250 ML 20.83 ML IVPB (16:29)
[2024-05-08] MEDS: ENOXAPARIN 40 MG/0.4 ML SYRINGE SUB-Q (16:40)
[2024-05-08 17:11] LABS: Triglycerides 133 mg/dL (<150)
[2024-05-08 18:59] LABS: Glucose Point of Care 146 mg/dl (65-105)
[2024-05-08] MEDS: CENTRAL LINE FLUSH 10 ML IV PUSH (21:01)
[2024-05-08] MEDS: ROSUVASTATIN 20 MG TABLET PO (21:12)
[2024-05-09] VITALS (8 sets, daily range): BP systolic 149–180; BP diastolic 65–90; PULSE 60–76; RESP 16–24; TEMP 36.6–37.1; O2SAT 94–99
[2024-05-09 00:33] LABS: Glucose Point of Care 152 mg/dl (65-105)
[2024-05-09] MEDS: PIPERACILLN/TAZ 3.375GM/NS50ML 3.375 GM/50 ML BAG IVPB ×3 (05:19→17:38)
[2024-05-09] MEDS: CENTRAL LINE FLUSH 10 ML IV PUSH ×3 (05:25→21:13)
[2024-05-09 05:27] LABS: Basophils Percent Auto 0.3 % (0.2-1.2); Eosinophils Absolute Auto 0.3 K/mm3 (0-0.3); Eosinophils Percent Auto 2.8 % (0-4.4); Hematocrit 43.5 % (42.0-52.0); Hemoglobin 14.3 g/dL (14.0-18.0); Immature Granulocyte Absolute 0.06 K/mm3 (0.00-0.031); Immature Granulocyte Percent A 0.5 % (0-0.5); Lymphocytes Absolute Auto 1.41 K/mm3 (0.9-3.2); Lymphocytes Percent Auto 12.2 % (18.3-44.2); Mean Corpuscular HGB Conc 32.9 g/dl (32-36); Mean Corpuscular Hemoglobin 29.9 pg (26-34); Mean Corpuscular Volume 90.8 fl (80-100); Mean Platelet Volume 9.9 fl (7.4-10.4); Monocytes Absolute Auto 0.9 K/mm3 (0.1-0.6); Monocytes Percent Auto 8.1 % (2.6-8.5); Neutrophils Absolute Auto 8.8 K/mm3 (1.3-6.7); Neutrophils Percent Auto 76.1 % (45.5-73.1); Platelet Count Result 163 k/mm3 (150-375); Red Blood Count 4.79 M/mm3 (4.6-6.20); White Blood Count 11.5 K/mm3 (4.5-10.0)
[2024-05-09 05:37] LABS: Anion Gap 6 mmol/L (4-12); Blood Urea Nitrogen 13 mg/dL (9-20); Calcium 9.2 mg/dL (8.4-10.2); Carbon Dioxide 35 mmol/L (22-30); Chloride 98 mmol/L (98-107); Estimated CRCL calculation 75 ml/min; Estimated Glomerular Filt Rate > 60; Glucose 148 mg/dL (65-110); Phosphorus 2.9 mg/dL (2.5-4.5); Potassium 3.5 mmol/L (3.4-5.0); Sodium 139 mmol/L (137-145)
[2024-05-09 05:59] LABS: Glucose Point of Care 138 mg/dl (65-105)
[2024-05-09] MEDS: FLUCONAZOLE 100 MG/NACL 50 ML 100 MG/50 ML BTL 50 MG IVPB (10:07)
[2024-05-09] MEDS: PANTOPRAZOLE SODIUM IV 40 MG VIAL IV PUSH (10:07)
[2024-05-09] MEDS: ENOXAPARIN 40 MG/0.4 ML SYRINGE SUB-Q (10:07)
--- NOTE | 2024-05-09 10:23 | WPDPN ---
Progress Note: A&P Assessment and Plan (1) Duodenal perforation: Code(s): K63.1 - Perforation of intestine (nontraumatic) Status: Acute Assessment and Plan: Perforated is very small. Right upper quadrant ARISTIDES drain is minimal and only 5cc for the past 24hours. Peers the perforation is likely stopped draining and closed. We will go ahead start him on some clear liquids today. Continue to monitor the drain output. Continue with Zosyn and Diflucan for right now. White blood cell count is 11,000 today and decreasing towards normal. Continue TPN for today. (2) Cholelithiasis with chronic cholecystitis: Code(s): K80.10 - Calculus of gallbladder with chronic cholecystitis without obstruction Status: Acute Assessment and Plan: Patient had an attempted robotic assisted laparoscopic cholecystectomy. This was abandoned and a bailout procedure with a cholecystostomy with removal of the gallstones and placement of a cholecystostomy tube was performed. The gallbladder was not removed. Small duodenal perforation was noted due to the very difficult dissection of the duodenum off of the gallbladder. For now the plan will be to continue with the cholecystostomy tube in place. May eventually get a cholangiogram through the cholecystostomy tube and if the cystic duct is open without further evidence of gallstones within the gallbladder then removed cholecystostomy tube may be all he needs. If he needs further surgical management is gallbladder then I would refer him to a hepatobiliary surgeon in [place]. (3) Malnutrition: Code(s): E46 - Unspecified protein-calorie malnutrition Status: Acute Assessment and Plan: Patient has had NPO status for a per few days during his admission last week for acute pancreatitis. He has been NPO again because of the small duodenal perforation. Start him on TPN yesterday after placement of a PICC line. Continue the TPN today. Subjective Date/time seen: 05/09/24 10:23 Interval history: Patient is improving. No worsening abdominal pain. He feels hungry. No nausea. Still remains on 2L nasal cannula oxygen. Urinating okay now. White blood cell count is decreased down to 11,000. output from the right upper quadrant drain is only 5cc for the past 24hours. Exam GI: Other: Abdomen is soft and minimally distended. Port site incisions are healing well. Cholecystostomy tube and ARISTIDES drain a right upper quadrant are both draining well. Minimal output from the ARISTIDES drain. Typical bile draining out of the cholecystostomy tube. Objective Data Vital Signs Vital Signs: Vital Signs - 24 hr 05/08/24 12:05 05/08/24 18:08 05/08/24 21:03 Temperature 36.9 C 36.6 C 36.8 C Pulse Rate 70 75 74 Respiratory Rate 18 18 16 Blood Pressure 146/64 H 155/72 H 146/81 H Pulse Oximetry 97 95 96 Oxygen Delivery Oxygen Flow Rate 05/08/24 20:00 05/08/24 23:25 05/09/24 00:26 Temperature 36.6 C Pulse Rate 60 Respiratory Rate 16 Blood Pressure 149/65 H Pulse Oximetry 96 94 94 Oxygen Delivery Nasal Cannula CPAP Oxygen Flow Rate 2 05/09/24 05:21 Temperature Pulse Rate 76 Respiratory Rate 18 Blood Pressure 151/73 H Pulse Oximetry 94 Oxygen Delivery Oxygen Flow Rate Intake/Output Intake/Output: Intake & Output 05/06/24 05/07/24 05/08/24 05/09/24 23:59 23:59 23:59 23:59 Intake Total 1170 3714 671.7 50 Output Total 1145 3020 1165 320 Balance 25 694 -493.3 -270 Meds/Results Medications: Active Medications Generic Name Dose Route Start Last Admin Trade Name Freq PRN Reason Stop Dose Admin Acetaminophen 1,000 mg 05/06/24 16:17 Acetaminophen 500 Mg Tablet PO Q6H PRN Mild Pain (1-3) or Fever Acetaminophen 650 mg 05/07/24 15:25 Acetaminophen 650 Mg Suppository RECTAL Q6H PRN Mild Pain (1-3) or Fever Hydrocodone Bitart/Acetaminophen 1 tab 05/06/24 16:17 05/07/24 06:33 Hy
[2024-05-09] MEDS: ENALAPRILAT 1.25 MG/ML VIAL 2.5 MG IV PUSH ×2 (10:25→21:13)
--- NOTE | 2024-05-09 10:40 | PCNFU ---
Nutrition Follow-Up Complete: Altered GI function as related to duodenal perforation as related to PPN/NPO. Goal: Meet estimated nutritional needs. Patient is progressing towards goal. We will continue current goal. Pt current nutrition is Clear liquids/TPN. Nutrition recommendation: advance diet as tolerated per MD orders. Last recorded weight is 90.95 kg, no new weight to report. Bowel Motility: +BM reported 05/09 Labs Reviewed:Glu 148 Meds Noted: Lopressor, Zosyn,Dilaudid, Clinimix E 5/15 at 40 ml/hr, 500 ml Lipids 20% Emulsion. Skin: WNL Additional Notes: Spoke with patient today. Diet order has advance to clear liquid diet. PPN changed to TPN- PICC placed. TPN providing an additional 1180 kcal/48 gm protein. Recommend advancing diet as tolerated per MD orders and d/c TPN has patient tolerates diet. Agree with diet orders. RD will monitor weight, labs, skin, diet orders, meds every Sunday and Sunday.
[2024-05-09 12:19] LABS: Glucose Point of Care 143 mg/dl (65-105)
--- NOTE | 2024-05-09 15:39 | PCPTNOTE ---
On 05/09/24, the student, [Cherie Washington], provided care and completed [facility] documentation on this patient. I have reviewed the student's documentation and agree with the findings.
[2024-05-09] MEDS: AMINO ACIDS 5%/D15W/E-LYTES/CA 2,000 ML with MULTIVITAMINS-12 INJ VIAL 1 2.5 ML, MULTIV... 40 ML IV CONT (17:44)
[2024-05-09] MEDS: FAT EMULSIONS IV 20% 250 ML 20.83 ML IVPB (17:45)
[2024-05-09 17:48] LABS: Glucose Point of Care 145 mg/dl (65-105)
[2024-05-09] MEDS: ROSUVASTATIN 20 MG TABLET PO (21:09)
[2024-05-10] VITALS (11 sets, daily range): BP systolic 143–181; BP diastolic 73–96; PULSE 65–82; RESP 18–28; TEMP 36.6–37.1; O2SAT 95–98
[2024-05-10 00:15] LABS: Glucose Point of Care 138 mg/dl (65-105)
[2024-05-10] MEDS: PIPERACILLN/TAZ 3.375GM/NS50ML 3.375 GM/50 ML BAG IVPB ×4 (00:17→17:31)
[2024-05-10] MEDS: METOPROLOL TARTRATE INJ 5 MG/5 ML VIAL IV PUSH (00:18)
[2024-05-10] MEDS: WATER FOR IRRIGATION, STERILE 1,000 ML BOTTLE 1000 ML (00:19)
[2024-05-10] MEDS: CENTRAL LINE FLUSH 10 ML IV PUSH ×2 (06:24→13:16)
[2024-05-10 06:34] LABS: Basophils Percent Auto 0.3 % (0.2-1.2); Eosinophils Absolute Auto 0.3 K/mm3 (0-0.3); Eosinophils Percent Auto 2.8 % (0-4.4); Hematocrit 45.3 % (42.0-52.0); Hemoglobin 15.3 g/dL (14.0-18.0); Immature Granulocyte Absolute 0.07 K/mm3 (0.00-0.031); Immature Granulocyte Percent A 0.6 % (0-0.5); Lymphocytes Absolute Auto 1.39 K/mm3 (0.9-3.2); Lymphocytes Percent Auto 12.6 % (18.3-44.2); Mean Corpuscular HGB Conc 33.8 g/dl (32-36); Mean Corpuscular Hemoglobin 30.1 pg (26-34); Mean Corpuscular Volume 89.2 fl (80-100); Mean Platelet Volume 10.3 fl (7.4-10.4); Monocytes Absolute Auto 0.8 K/mm3 (0.1-0.6); Monocytes Percent Auto 7.2 % (2.6-8.5); Neutrophils Absolute Auto 8.4 K/mm3 (1.3-6.7); Neutrophils Percent Auto 76.5 % (45.5-73.1); Platelet Count Result 187 k/mm3 (150-375); Red Blood Count 5.08 M/mm3 (4.6-6.20); Red Cell Distribution Width 12.4 % (11.5-14.5)
[2024-05-10 06:48] LABS: Glucose Point of Care 147 mg/dl (65-105)
[2024-05-10 06:49] LABS: Alanine Aminotransferase 31 U/L (6-50); Albumin Level 3.8 g/dL (3.5-5.1); Alkaline Phosphatase 57 U/L (38-126); Anion Gap 6 mmol/L (4-12); Aspartate Amino Transferase 22 U/L (17-59); Bilirubin,Total 2.2 mg/dL (0.2-1.3); Blood Urea Nitrogen 11 mg/dL (9-20); Calcium 9.3 mg/dL (8.4-10.2); Carbon Dioxide 34 mmol/L (22-30); Chloride 98 mmol/L (98-107); Estimated CRCL calculation 88 ml/min; Estimated Glomerular Filt Rate > 60; Glucose 144 mg/dL (65-110); Phosphorus 2.8 mg/dL (2.5-4.5); Potassium 3.5 mmol/L (3.4-5.0); Sodium 138 mmol/L (137-145)
[2024-05-10] MEDS: ENOXAPARIN 40 MG/0.4 ML SYRINGE SUB-Q (09:29)
[2024-05-10] MEDS: PANTOPRAZOLE SODIUM IV 40 MG VIAL IV PUSH (09:29)
[2024-05-10] MEDS: ENALAPRILAT 1.25 MG/ML VIAL 2.5 MG IV PUSH (09:33)
[2024-05-10] MEDS: FLUCONAZOLE 100 MG/NACL 50 ML 100 MG/50 ML BTL 50 MG IVPB (09:35)
--- NOTE | 2024-05-10 11:11 | WPDPN ---
Progress Note: A&P Assessment and Plan (1) Malnutrition: Code(s): E46 - Unspecified protein-calorie malnutrition Status: Acute Assessment and Plan: Will go ahead and wean off TPN today. Tolerated clear liquids. Was advanced into full liquids with Ensure supplements. (2) Cholelithiasis with chronic cholecystitis: Code(s): K80.10 - Calculus of gallbladder with chronic cholecystitis without obstruction Status: Acute Assessment and Plan: Gallstone was was removed during the surgery. Cholecystostomy tube placed. Bilious output from the cholecystostomy tube is noninfected bile. Continue cholecystostomy tube for now. (3) Duodenal perforation: Code(s): K63.1 - Perforation of intestine (nontraumatic) Status: Acute Assessment and Plan: Appears small perforations likely sealed. ARISTIDES drain output did not increase with clear liquids. He has no significant abdominal pain. White blood cell count is decreasing down to 11,000. Will continue IV antibiotics for now. We will go ahead and increase his diet to full liquids with Ensure supplements. Hopefully can further advance his diet tomorrow if he is doing well. We will wean off his TPN now. Subjective Date/time seen: 05/10/24 11:11 Interval history: Patient is doing pretty well. He has now weaned off of oxygen. He still having bowel movements. Tolerated clear liquids well. White blood cell count has decreased down to 11,000 from 11,500 yesterday. No fever. Output from the right upper quadrant ARISTIDES drain is still very low and nonbilious now. Exam GI: Other: Abdomen is soft and nondistended. Incisions are healing without any redness or drainage. ARISTIDES drain minimal serous fluid. Not appear to be bilious. Output was only less than 20cc over the last 24hours. Cholecystostomy tube output is still bilious but also a small about 20cc a day. Objective Data Vital Signs Vital Signs: Vital Signs - 24 hr 05/09/24 14:00 05/09/24 14:54 05/09/24 18:00 Temperature 37.1 C 36.7 C Pulse Rate 74 71 Respiratory Rate 20 20 Blood Pressure 152/74 H 153/67 H Pulse Oximetry 99 96 Oxygen Delivery Nasal Cannula Oxygen Flow Rate 2 Fraction of Inspired Oxygen 05/09/24 18:00 05/09/24 20:00 05/09/24 22:00 Temperature 36.6 C Pulse Rate 71 66 Respiratory Rate 20 20 Blood Pressure 180/90 H Pulse Oximetry 96 96 Oxygen Delivery Room Air Room Air Oxygen Flow Rate Fraction of Inspired Oxygen 32 05/10/24 00:00 05/09/24 23:00 05/10/24 05:55 Temperature 37.1 C 36.7 C Pulse Rate 72 70 82 Respiratory Rate 18 18 Blood Pressure 175/86 H 172/96 H Pulse Oximetry 98 97 98 Oxygen Delivery CPAP Oxygen Flow Rate Fraction of Inspired Oxygen 05/10/24 09:28 05/10/24 09:55 05/10/24 10:00 Temperature 36.8 C Pulse Rate 78 70 Respiratory Rate 26 H Blood Pressure 178/82 H Pulse Oximetry 95 Oxygen Delivery Oxygen Flow Rate Fraction of Inspired Oxygen Intake/Output Intake/Output: Intake & Output 05/07/24 05/08/24 05/09/24 05/10/24 23:59 23:59 23:59 23:59 Intake Total 3714 671.7 3041.3 950 Output Total 3020 2489 860 3338 Balance 694 -493.3 2536.3 -50 Meds/Results Medications: Active Medications Generic Name Dose Route Start Last Admin Trade Name Freq PRN Reason Stop Dose Admin Acetaminophen 1,000 mg 05/06/24 16:17 Acetaminophen 500 Mg Tablet PO Q6H PRN Mild Pain (1-3) or Fever Acetaminophen 650 mg 05/07/24 15:25 Acetaminophen 650 Mg Suppository RECTAL Q6H PRN Mild Pain (1-3) or Fever Hydrocodone Bitart/Acetaminophen 1 tab 05/06/24 16:17 05/07/24 06:33 Hydrocodone/Acetaminophen (*Crx) 5-325 Mg Tablet PO 1 tab Q4H PRN Administration Pain Rated 4-6 Enalaprilat 2.5 mg 05/10/24 09:00 05/10/24 09:33 Enalaprilat 1.25 Mg/Ml Vial IV PUSH 2.5 mg Q12HR SHIVMA Administration Enoxaparin Sodium 40 mg 05/09/24 09:00 04/15
[2024-05-10 12:35] LABS: Glucose Point of Care 129 mg/dl (65-105)
[2024-05-10] MEDS: ACETAMINOPHEN 500 MG TABLET 1000 MG PO (16:15)
[2024-05-10] MEDS: ROSUVASTATIN 20 MG TABLET PO (20:21)
[2024-05-10] MEDS: lisinopriL 10 MG TABLET PO (20:21)
[2024-05-10] MEDS: hydroCHLOROthiazide 25 MG TABLET PO (20:21)
[2024-05-10] MEDS: NEBIVOLOL HCL 5 MG TABLET 20 MG PO (20:22)
[2024-05-11] VITALS (10 sets, daily range): BP systolic 115–185; BP diastolic 67–90; PULSE 62–90; RESP 16–28; TEMP 36.3–36.8; O2SAT 95–99
[2024-05-11] MEDS: CENTRAL LINE FLUSH 10 ML IV PUSH ×4 (00:31→22:03)
[2024-05-11] MEDS: PIPERACILLN/TAZ 3.375GM/NS50ML 3.375 GM/50 ML BAG IVPB ×2 (00:31→05:58)
[2024-05-11] MEDS: hydrALAZINE HCL 20 MG/ML VIAL 10 MG IV PUSH (01:04)
[2024-05-11] MEDS: HYDROcodone/acetaminophen (*CRX) 5-325 MG TABLET 1 TAB PO ×2 (03:13→22:11)
[2024-05-11 05:04] LABS: Appearance Urine Clear (Clear); Bilirubin Urine Negative (Negative); Blood Urine Negative (Negative); Color Urine Yellow (Yellow); Glucose Urine UA Negative (Negative); Ketones Urine Negative (Negative); Leukocyte Esterase Ur Negative LEU/UL (Negative); Nitrate Urine Negative (Negative); Protein Urine Negative (Negative)
[2024-05-11 05:31] LABS: Add Urine Microscopic? NO
[2024-05-11 06:42] LABS: Alanine Aminotransferase 24 U/L (6-50); Albumin Level 3.7 g/dL (3.5-5.1); Alkaline Phosphatase 61 U/L (38-126); Anion Gap 7 mmol/L (4-12); Aspartate Amino Transferase 20 U/L (17-59); Bilirubin,Total 2.4 mg/dL (0.2-1.3); Blood Urea Nitrogen 10 mg/dL (9-20); Calcium 9.4 mg/dL (8.4-10.2); Carbon Dioxide 33 mmol/L (22-30); Chloride 97 mmol/L (98-107); Estimated CRCL calculation 88 ml/min; Estimated Glomerular Filt Rate > 60; Glucose 114 mg/dL (65-110); Potassium 3.2 mmol/L (3.4-5.0); Sodium 137 mmol/L (137-145)
[2024-05-11 07:17] LABS: Basophils Absolute Auto 0.1 K/mm3 (0.0-0.1); Basophils Percent Auto 0.4 % (0.2-1.2); Eosinophils Absolute Auto 0.3 K/mm3 (0-0.3); Eosinophils Percent Auto 1.9 % (0-4.4); Hematocrit 47.2 % (42.0-52.0); Hemoglobin 15.8 g/dL (14.0-18.0); Immature Granulocyte Absolute 0.06 K/mm3 (0.00-0.031); Immature Granulocyte Percent A 0.4 % (0-0.5); Lymphocytes Absolute Auto 1.71 K/mm3 (0.9-3.2); Lymphocytes Percent Auto 12.7 % (18.3-44.2); Mean Corpuscular HGB Conc 33.5 g/dl (32-36); Mean Corpuscular Hemoglobin 29.6 pg (26-34); Mean Corpuscular Volume 88.6 fl (80-100); Mean Platelet Volume 10.7 fl (7.4-10.4); Monocytes Percent Auto 7.6 % (2.6-8.5); Neutrophils Absolute Auto 10.4 K/mm3 (1.3-6.7); Platelet Count Result 219 k/mm3 (150-375); Red Blood Count 5.33 M/mm3 (4.6-6.20); Red Cell Distribution Width 12.9 % (11.5-14.5); White Blood Count 13.5 K/mm3 (4.5-10.0)
[2024-05-11] MEDS: PANTOPRAZOLE SODIUM IV 40 MG VIAL IV PUSH (08:27)
[2024-05-11] MEDS: ENOXAPARIN 40 MG/0.4 ML SYRINGE SUB-Q (08:27)
[2024-05-11] MEDS: FLUCONAZOLE 100 MG/NACL 50 ML 100 MG/50 ML BTL IVPB (08:28)
--- NOTE | 2024-05-11 11:02 | WPDPN ---
Progress Note: A&P Assessment and Plan (1) Duodenal perforation: Code(s): K63.1 - Perforation of intestine (nontraumatic) Status: Acute Assessment and Plan: Perforation has likely closed. He is doing pretty well on full liquids with out any increase in pain or output from the right upper quadrant ARISTIDES drain. No fever. White blood cell count is only slightly elevated compared to yesterday. We will go ahead advance him to a heart healthy diet today. Will transition to oral antibiotics and start Augmentin and oral Diflucan and stop the IV Zosyn and IV Diflucan. Continue with the drains in place for now. Continue with the cholecystostomy tube for now. His potassium was low at 3.2 likely due to his diarrhea and so he is getting oral on IV replacement of the potassium today. Recheck his electrolytes tomorrow. (2) Cholelithiasis with chronic cholecystitis: Code(s): K80.10 - Calculus of gallbladder with chronic cholecystitis without obstruction Status: Acute Assessment and Plan: Cholecystostomy tube in place. It is draining. Plan on a visual discharge from the hospital with a cholecystostomy tube in place. Like he had an outpatient cholangiogram through the cholecystostomy tube before removing it. If there is need for further evaluation of a cholecystectomy for this patient and I will refer him to a hepatobiliary surgeon in [place] as an outpatient. Subjective Date/time seen: 05/11/24 11:02 Interval history: Patient some urinary retention this morning. Had to have straight cath at about 500cc of urine drained. He states he is able to urinate but goes frequently and does not feel he can get his bladder empty. He has been told he has enlarged prostate. Otherwise he tolerated full liquids without difficulty. No increasing abdominal pain. Continues to have some diarrhea. White blood count is slightly elevated to 13,000 from 11,000 yesterday. No fever. TPN was stopped. Exam GI: Other: Abdomen is soft and nondistended. Minimal drainage from the right upper quadrant ARISTIDES drain. It is nonbilious. Small amount of bile draining from the cholecystostomy tube. Port site incisions are healing well without any redness or drainage. Objective Data Vital Signs Vital Signs: Vital Signs - 24 hr 05/10/24 14:00 05/10/24 19:40 05/10/24 20:22 Temperature 37.1 C 36.6 C Pulse Rate 72 73 73 Respiratory Rate 28 H 18 Blood Pressure 143/89 H 181/73 H Pulse Oximetry 95 95 Oxygen Delivery Oxygen Flow Rate 05/11/24 00:00 05/11/24 01:40 05/11/24 00:40 Temperature 36.4 C Pulse Rate 66 66 63 Respiratory Rate 20 Blood Pressure 185/90 H 166/81 H 172/80 H Pulse Oximetry 97 Oxygen Delivery Oxygen Flow Rate 05/11/24 01:40 05/10/24 20:21 05/10/24 23:15 Temperature Pulse Rate 66 65 Respiratory Rate Blood Pressure 166/81 H Pulse Oximetry 97 97 Oxygen Delivery CPAP CPAP Oxygen Flow Rate 3 05/10/24 21:15 05/11/24 06:00 05/11/24 08:20 Temperature 36.6 C Pulse Rate 62 Respiratory Rate 20 Blood Pressure 157/76 H Pulse Oximetry 97 99 Oxygen Delivery Nasal Cannula Room Air Oxygen Flow Rate 3 05/11/24 10:00 Temperature 36.5 C Pulse Rate 68 Respiratory Rate 24 H Blood Pressure 135/75 Pulse Oximetry 96 Oxygen Delivery Oxygen Flow Rate Intake/Output Intake/Output: Intake & Output 05/08/24 05/09/24 05/10/24 05/11/24 23:59 23:59 23:59 23:59 Intake Total 671.7 3041.3 2582 590 Output Total 7664 092 6829 735 Balance -493.3 2536.3 1107 -145 Meds/Results Medications: Active Medications Generic Name Dose Route Start Last Admin Trade Name Freq PRN Reason Stop Dose Admin Acetaminophen 1,000 mg 05/06/24 16:17 05/10/24 16:15 Acetaminophen 500 Mg Tablet PO 1,000 mg Q6H PRN Administration Mild Pain (1-3) or Fever Hydrocodone Bitart/Acetaminophen 1 tab 05/06/24 16:17 05/11/24 03:13 Hydrocodone/Acetaminophen (*Cr
[2024-05-11] MEDS: POTASSIUM CHLORIDE 20 MEQ ER TABLET 40 MEQ PO (12:12)
[2024-05-11] MEDS: KCL 20 MEQ/SW 100 ML 100 ML 50 MEQ IVPB (12:12)
[2024-05-11] MEDS: TAMSULOSIN HCL 0.4 MG CAPSULE PO (12:12)
[2024-05-11 20:50] LABS: Glucose Point of Care 154 mg/dl (65-105)
[2024-05-11] MEDS: NEBIVOLOL HCL 5 MG TABLET 20 MG PO (22:00)
[2024-05-11] MEDS: hydroCHLOROthiazide 25 MG TABLET PO (22:01)
[2024-05-11] MEDS: lisinopriL 10 MG TABLET PO (22:01)
[2024-05-11] MEDS: AMOXICILLIN/CLAVULANATE K 875-125 MG TAB 1 TABLET PO (22:01)
[2024-05-11] MEDS: ROSUVASTATIN 20 MG TABLET PO (22:01)
[2024-05-12] VITALS: BP 119/63; PULSE 73; RESP 20; TEMP 36.1; O2SAT 97
[2024-05-12 04:00] VITALS: BP 125/64; PULSE 63; RESP 20; TEMP 36.1; O2SAT 95
[2024-05-12] MEDS: CENTRAL LINE FLUSH 10 ML IV PUSH (05:24)
[2024-05-12 05:52] LABS: Basophils Absolute Auto 0.1 K/mm3 (0.0-0.1); Basophils Percent Auto 0.5 % (0.2-1.2); Eosinophils Absolute Auto 0.3 K/mm3 (0-0.3); Eosinophils Percent Auto 2.8 % (0-4.4); Hematocrit 48.1 % (42.0-52.0); Hemoglobin 15.9 g/dL (14.0-18.0); Immature Granulocyte Absolute 0.07 K/mm3 (0.00-0.031); Immature Granulocyte Percent A 0.6 % (0-0.5); Lymphocytes Absolute Auto 1.89 K/mm3 (0.9-3.2); Lymphocytes Percent Auto 16.2 % (18.3-44.2); Mean Corpuscular HGB Conc 33.1 g/dl (32-36); Mean Corpuscular Hemoglobin 29.4 pg (26-34); Mean Corpuscular Volume 89.1 fl (80-100); Mean Platelet Volume 10.2 fl (7.4-10.4); Monocytes Absolute Auto 0.9 K/mm3 (0.1-0.6); Monocytes Percent Auto 8.1 % (2.6-8.5); Neutrophils Absolute Auto 8.4 K/mm3 (1.3-6.7); Neutrophils Percent Auto 71.8 % (45.5-73.1); Platelet Count Result 207 k/mm3 (150-375); Red Cell Distribution Width 12.9 % (11.5-14.5); White Blood Count 11.7 K/mm3 (4.5-10.0)
[2024-05-12 06:02] LABS: Alanine Aminotransferase 20 U/L (6-50); Albumin Level 3.9 g/dL (3.5-5.1); Alkaline Phosphatase 65 U/L (38-126); Anion Gap 7 mmol/L (4-12); Aspartate Amino Transferase 19 U/L (17-59); Bilirubin,Total 2.2 mg/dL (0.2-1.3); Blood Urea Nitrogen 15 mg/dL (9-20); Calcium 9.4 mg/dL (8.4-10.2); Carbon Dioxide 32 mmol/L (22-30); Chloride 99 mmol/L (98-107); Estimated CRCL calculation 70 ml/min; Estimated Glomerular Filt Rate > 60; Glucose 110 mg/dL (65-110); Potassium 3.7 mmol/L (3.4-5.0); Sodium 138 mmol/L (137-145)
[2024-05-12 07:57] VITALS: O2SAT 93
[2024-05-12] MEDS: TAMSULOSIN HCL 0.4 MG CAPSULE PO (08:55)
[2024-05-12] MEDS: AMOXICILLIN/CLAVULANATE K 875-125 MG TAB 1 TABLET PO (08:55)
[2024-05-12] MEDS: ENOXAPARIN 40 MG/0.4 ML SYRINGE SUB-Q (08:55)
[2024-05-12] MEDS: PANTOPRAZOLE 40 MG TABLET PO (08:55)
[2024-05-12] MEDS: FLUCONAZOLE 100 MG TABLET PO (08:55)
[2024-05-12 10:00] VITALS: BP 97/76; PULSE 75; RESP 18; TEMP 36.8; O2SAT 96
--- NOTE | 2024-05-12 12:33 | PM.DS ---
DS: Admitting Diagnosis Discharge Date 05/12/2024 Admitting Diagnosis History of gallstone pancreatitis Chronic calculous cholecystitis DS: Discharge Diagnosis Discharge Diagnosis (1) Cholelithiasis with chronic cholecystitis: Code(s): K80.10 - Calculus of gallbladder with chronic cholecystitis without obstruction Status: Acute (2) Duodenal perforation: Code(s): K63.1 - Perforation of intestine (nontraumatic) Status: Acute (3) Malnutrition: Code(s): E46 - Unspecified protein-calorie malnutrition Status: Acute (4) Leukocytosis: Code(s): D72.829 - Elevated white blood cell count, unspecified Status: Acute (5) Hypoxia: Code(s): R09.02 - Hypoxemia Status: Acute DS: Summary Hospital Course Reason for hospitalization: This is a 74-year-old man who was admitted to the hospital in April with gallstone pancreatitis. He had a significant amount of air in his biliary tree, and had not undergone any endoscopic manipulation of his biliary tree or previous sphincterotomy. His acute pancreatitis resolved and he was discharged home. He was brought back as an outpatient for an interval robotic assisted laparoscopic cholecystectomy. Hospital Course: On 05/06/2024, the patient underwent robotic assisted diagnostic laparoscopy with placement of cholecystostomy tube and removal of gallstone by Dr. Mc. He was found to have very severe chronic cholecystitis during surgery with the gallbladder partially involved within the omentum with dense chronic adhesions. The first portion of the duodenum was completely stuck and adherent to the fundus of the gallbladder. A large 2 cm gallstone was removed from the gallbladder. There was a significant amount of inflammation and scarring making the surgery very difficult and eventually decision was made to abandon trying to dissect the rest of the gallbladder, and instead removing the gallstone and placing a cholecystostomy tube laparoscopically. There was a small enterotomy in the duodenum made during dissection that was repaired primarily with PDS suture. A ARISTIDES drain was also left in place in the right upper quadrant. He was admitted postoperatively. He had a water-soluble upper GI ordered postop day 1 to evaluate for any duodenal leak due to the enterotomy during dissection in surgery. 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 He was treated with bowel rest, IV antibiotics, and IV antifungals. He was started on IV PPN with Clinimix. While treating with bowel rest, he had a PICC line ordered and was transition to TPN. It was felt that the perforation had likely closed and he was started on a clear liquid diet postop day 3. He also required 1-2 L of oxygen via nasal cannula postoperatively. He had an increase of oxygen requirements overnight postop day 2. Chest x-ray was ordered and showed bibasilar infiltrates which may represent atelectasis or pneumonia. He had no shortness of breath or chest pain. Incentive spirometry had already been ordered and was encouraged. He was monitored and his oxygen was eventually able to be weaned off. His labs were followed routinely after surgery. [place] [id number] on postop day 1 and continued an overall downward trend following surgery up until discharge. He also had mild hypokalemia, which was replaced and monitor daily. His cholecystostomy tube and ARISTIDES drain were monitored closely. ARISTIDES drain output diminished and there was no output prior to discharge, therefore his right upper quadrant ARISTIDES drain was removed before discharging home. His diet was slowly advanced and he continued to tolerate a diet well. He dealt with some postoperative urinary retention and was started on Flomax, which was continued on discharge and instructions to follow-up with his PCP. Incisional pain was well controlled. He was t
[2024-05-12 14:00] VITALS: BP 125/62; PULSE 66; RESP 22; TEMP 36.7; O2SAT 95
== END 2024-05-12 15:35 | disposition home or self-care (01) | DRG 409 ==
LOC: ANHSURGERY 16:29 → ANH2MED 16:30
PROVIDERS: Internal Medicine; Admitting Provider Surgery; PCP Family Medicine; Visit Provider Nurse Practitioner Family
PROC: 0FT44ZZ Resection of Gallbladder, Percutaneous Endoscopic Approach (ICD-10-PCS; CPT 47562; principal; 2024-05-06 11:00)
DX: K80.10 Calculus of gallbladder with chronic cholecystitis without obstruction (principal); E46 Unspecified protein-calorie malnutrition; K91.71 Accidental puncture and laceration of a digestive system organ or structure during a digestive system procedure; K91.81 Other intraoperative complications of digestive system; R09.02 Hypoxemia; D63.1 Anemia in chronic kidney disease; D72.829 Elevated white blood cell count, unspecified; K82.8 Other specified diseases of gallbladder; I70.0 Atherosclerosis of aorta; I10 Essential (primary) hypertension; E78.5 Hyperlipidemia, unspecified; N99.89 Other postprocedural complications and disorders of genitourinary system; R33.9 Retention of urine, unspecified; G47.30 Sleep apnea, unspecified; M48.061 Spinal stenosis, lumbar region without neurogenic claudication; Z68.35 Body mass index [BMI] 35.0-35.9, adult; Z95.5 Presence of coronary angioplasty implant and graft; Z87.891 Personal history of nicotine dependence
CPT/HCPCS: 36415; 36569; 71046; 74240; 80048; 80053; 81003; 82150; 82365; 82948; 83690; 83735; 84100; 84466; 84478; 85025; 85730; 86850; 86900; 86901; 88300; 97161; 97165; A9270; G0378; G0379; J0360; J0690; J1100; J1170; J1450; J1650; J2405; J2470; J2543; J2704; J3010; J3480; J7030; J7120; J7121

== ENCOUNTER 2024-05-23 10:05 | Outpatient (CLI) | payer MEDICARE, SELFPAY ==
--- NOTE | ~2024-05-23 | XR_ITS ---
EXAMINATION: XR catheter cholangiogram DATE: 05/23/2024 10:40 INDICATION: Cholelithiasis. Chronic cholecystitis. TECHNIQUE: I injected the cholecystostomy tube with contrast and performed fluoroscopy. One image was obtained. The fluoroscopy exposure time was 0.1 minutes. COMPARISON: MRCP 04/30/2024 FINDINGS: The cholecystostomy tube is completely occluded. IMPRESSION: 1. Completely occluded cholecystostomy tube. Reviewed, dictated and finalized at location A.
== END 2024-05-23 10:06 | disposition home or self-care (01) ==
LOC: ANHIMG 10:08
PROVIDERS: PCP Family Medicine; Visit Provider Surgery
DX: K63.1 Perforation of intestine (nontraumatic) (principal); Z90.49 Acquired absence of other specified parts of digestive tract
CPT/HCPCS: 47531

== ENCOUNTER 2024-06-19 02:15 | Day surgery (SDC) | payer MEDICARE, SELFPAY ==
[2024-05-28 12:17] VITALS: BMI 30.7
[2024-06-19] MEDS: LACTATED RINGERS 1,000 ML 150 ML IV CONT (12:21)
--- NOTE | 2024-06-19 13:15 | WPDANESEPPF ---
Anes - Initial Pre Proc Eval Procedure: Operation Date: 06/19/24 13:00 Proposed Procedures p Colonoscopy - Gary Farley MD Date/Time: 06/19/24 13:15 Surgeon: Gary Farley MD Pre Op Diagnosis: Hemorrhage of anus/rectum, gastroenteritis/colitis Patient Data Age: 74 Gender: M Height: 1.68 m Weight: 90.5 kg Allergies Allergy/AdvReac Type Severity Reaction Status Date / Time niacin Allergy Unknown Unknown Verified 06/19/24 12:08 NSAIDS (Non-Steroidal Allergy Unknown Anemia Verified 06/19/24 12:08 Anti-Inflamma aspirin AdvReac Unknown gi bleed Verified 06/19/24 12:08 Home Medications Medication Instructions Recorded Confirmed Type acyclovir 5 % topical ointment 1 applic topical 6XD 7 days #10 11/22/22 06/19/24 Rx (Zovirax) grams rosuvastatin 20 mg tablet (Crestor) 20 mg PO DAILY #90 tabs 12/31/23 06/19/24 Rx hydrochlorothiazide 25 mg tablet 25 mg PO DAILY 04/30/24 06/19/24 History lisinopril 10 mg tablet 10 mg PO DAILY 04/30/24 06/19/24 History nebivolol 20 mg tablet 20 mg PO HS 04/30/24 06/19/24 History pantoprazole 40 mg tablet,delayed 40 mg PO QAM 04/30/24 06/19/24 History release sildenafil (pulm.hypertension) 20 20 mg PO DAILY PRN Sexual Activity 04/30/24 06/19/24 History mg tablet amoxicillin 875 mg-potassium 1 tablet PO Q12H 7 days #14 tabs 05/12/24 06/19/24 Rx clavulanate 125 mg tablet Patient hx anesthesia problems: none Family hx anesthesia problems: none Results Review: All pre-operative results and documents have been reviewed as part of the pre-operative evaluation. [facility] Past Medical History Medical History Abdominal aortic atherosclerosis Angina pectoris, unstable Erectile dysfunction Excess ear wax History of blood transfusion Hyperlipidemia Hypertension Kidney stones Leukocytosis Lumbar spinal stenosis Obesity (BMI 30-39.9) Polycythemia Rectal bleeding Sleep apnea with use of continuous positive airway pressure (CPAP) Stomach ulcer Surgical History Surgical History History of laparoscopic cholecystectomy Robotic assisted diagnostic laparoscopy with placement of cholecystostomy tube and removal of gallstone 05/06/24 History of toe surgery Hx of heart artery stent Status post phlebectomy Family History Family History Other Cancer Family history of cardiovascular disease Family history of elevated blood lipids Hypertension Social History Social History Smoking packs per day: 1 Smoking cigarettes per day: 20.0 Years smoked: 15 Smoking pack-years: 15.00 Smoking status: Former smoker Tobacco type: cigarettes Smoking end date: 05/02/85 Alcohol intake: never Drinks per week: 1 Substance use: never Substance use type: does not use Do You Feel Safe in your Home?: Yes Lack of Transportation: No Lack of Food: Never True Current Housing: I Have Housing Concerned About Future Housing: No Difficulty Paying Gas/Electric Bills: No Difficulty Paying for Meds: No Currently Unemployed: No Education: Associate Degree Difficulty w/ Childcare or Family Care: No Living arrangements: with friend(s) Spiritual care concerns: No Anes - Eval Final PreProcedure Day of Procedure 06/19/24 13:15 Patient weight: obese Heart: regular rate and rhythm Lungs: clear to auscultation Airway: Mallampati scale class II Neurological: alert and oriented Last oral intake: >/= 8 hours ASA classification: III Emergent: no Anesthetic plan: proceed Anesthesia type and monitoring: general GIVS and standard monitoring Results Review: All pre-operative results and documents have been reviewed as part of the pre-operative evaluation. Informed Consent: The patient's anesthetic plan and its atten
--- NOTE | 2024-06-19 13:53 | PM.HPGS ---
History of Present Illness History of Present Illness Consent: Risks, benefits, and alternatives have been discussed and questions answered. Patient agrees to proceed with procedure. Chief complaint: Hemorrhage of anus/rectum, gastroenteritis/colitis Narrative: Derek Garrison Sr. is a 74 year old male with previous hospitalization with pancreatitis and colitis, resolved. Last colonoscopy ~ 10 years ago Review of Systems Review of Systems: All systems reviewed & are unremarkable except as noted in HPI and below PMFSH Past Medical History Medical History Abdominal aortic atherosclerosis Angina pectoris, unstable Erectile dysfunction Excess ear wax History of blood transfusion Hyperlipidemia Hypertension Kidney stones Leukocytosis Lumbar spinal stenosis Obesity (BMI 30-39.9) Polycythemia Rectal bleeding Sleep apnea with use of continuous positive airway pressure (CPAP) Stomach ulcer Surgical History Surgical History History of laparoscopic cholecystectomy Robotic assisted diagnostic laparoscopy with placement of cholecystostomy tube and removal of gallstone 05/06/24 History of toe surgery Hx of heart artery stent Status post phlebectomy Family History Family History Other Cancer Family history of cardiovascular disease Family history of elevated blood lipids Hypertension Social History Social History Smoking packs per day: 1 Smoking cigarettes per day: 20.0 Years smoked: 15 Smoking pack-years: 15.00 Smoking status: Former smoker Tobacco type: cigarettes Smoking end date: 05/02/85 Alcohol intake: never Drinks per week: 1 Substance use: never Substance use type: does not use Do You Feel Safe in your Home?: Yes Lack of Transportation: No Lack of Food: Never True Current Housing: I Have Housing Concerned About Future Housing: No Difficulty Paying Gas/Electric Bills: No Difficulty Paying for Meds: No Currently Unemployed: No Education: Associate Degree Difficulty w/ Childcare or Family Care: No Living arrangements: with friend(s) Spiritual care concerns: No Meds Home Medications and Allergies Home Medications Medication Instructions Recorded Confirmed Type acyclovir 5 % topical ointment 1 applic topical 6XD 7 days #10 11/22/22 06/19/24 Rx (Zovirax) grams rosuvastatin 20 mg tablet (Crestor) 20 mg PO DAILY #90 tabs 12/31/23 06/19/24 Rx hydrochlorothiazide 25 mg tablet 25 mg PO DAILY 04/30/24 06/19/24 History lisinopril 10 mg tablet 10 mg PO DAILY 04/30/24 06/19/24 History nebivolol 20 mg tablet 20 mg PO HS 04/30/24 06/19/24 History pantoprazole 40 mg tablet,delayed 40 mg PO QAM 04/30/24 06/19/24 History release sildenafil (pulm.hypertension) 20 20 mg PO DAILY PRN Sexual Activity 04/30/24 06/19/24 History mg tablet amoxicillin 875 mg-potassium 1 tablet PO Q12H 7 days #14 tabs 05/12/24 06/19/24 Rx clavulanate 125 mg tablet Allergies Allergy/AdvReac Type Severity Reaction Status Date / Time niacin Allergy Unknown Unknown Verified 06/19/24 12:08 NSAIDS (Non-Steroidal Allergy Unknown Anemia Verified 06/19/24 12:08 Anti-Inflamma aspirin AdvReac Unknown gi bleed Verified 06/19/24 12:08 Exam Const: General: comfortable and no acute distress HENMT: Face/Nose/Sinus: Normal nares present Eyes: General: appearance normal, both eyes and all related structures Neck: Neck: no JVD Resp: Auscultation: clear to auscultation bilaterally Cardio: Rate: regular rate Rhythm: regular rhythm GI: Inspection: non-distended GI Palp: Yes Soft to palpation Skin: General skin exam: normal color Neuro: General: gait normal Speech: normal speech Extrem: General: normal to inspection Psych: Mental Status: mental status grossly
[2024-06-19 14:12] VITALS: BP 105/54; PULSE 65; RESP 18; O2SAT 92
[2024-06-19 14:22] VITALS: BP 109/67; PULSE 60; RESP 29; O2SAT 96
[2024-06-19 14:32] VITALS: BP 114/65; PULSE 64; RESP 18; O2SAT 98
== END 2024-06-19 14:42 | disposition home or self-care (01) ==
PROVIDERS: PCP Family Medicine; Referring Provider Internal Medicine Gastroenterology; Visit Provider Internal Medicine Gastroenterology
PROC: 0DJD8ZZ Inspection of Lower Intestinal Tract, Via Natural or Artificial Opening Endoscopic (ICD-10-PCS; CPT 45378; principal; 2024-06-19 13:00)
DX: K63.5 Polyp of colon (principal); K57.30 Diverticulosis of large intestine without perforation or abscess without bleeding; I10 Essential (primary) hypertension; E78.2 Mixed hyperlipidemia; I70.0 Atherosclerosis of aorta; N52.9 Male erectile dysfunction, unspecified; D72.829 Elevated white blood cell count, unspecified; M48.061 Spinal stenosis, lumbar region without neurogenic claudication; D75.1 Secondary polycythemia; G47.30 Sleep apnea, unspecified; E66.9 Obesity, unspecified; Z68.32 Body mass index [BMI] 32.0-32.9, adult; Z99.89 Dependence on other enabling machines and devices; Z98.890 Other specified postprocedural states; Z90.49 Acquired absence of other specified parts of digestive tract; Z87.891 Personal history of nicotine dependence; Z95.5 Presence of coronary angioplasty implant and graft; Z87.442 Personal history of urinary calculi; Z80.9 Family history of malignant neoplasm, unspecified; Z82.49 Family history of ischemic heart disease and other diseases of the circulatory system
CPT/HCPCS: 45385; 88305; J2704; J7120

== ENCOUNTER 2025-01-20 16:26 | Emergency (ER) | payer MEDICARE, SELFPAY ==
--- NOTE | ~2025-01-20 | CT_ITS ---
CLINICAL INDICATION: Abdominal pain COMPARISON: 04/30/2024. TECHNIQUE: Multiple contiguous axial images of the abdomen and pelvis were performed following the ad ministration of with 100 mL Omnipaque-350 intravenous contrast The dose-length product (DLP) was 1160.28 mGy-cm. Automated exposure control and iterative reconstruction technique were employed. FINDINGS/OBSERVATIONS: Visualized lower thorax: Bibasilar atelectasis, unchanged from prior. The heart is enlarged, unchanged, without pericardial effusion. Small hiatal hernia is present. Liver: Punctate foci of air are redemonstrated within the liver, similar in appearance to previous ex amination performed in 2023. The remainder of the liver demonstrates otherwise homogeneous enhancement and is not enlarged. Gallbladder and biliary system: Irregular contour of the gallbladder, poorly visualized on the current study. No intra or extrahepatic biliary ductal dilatation is identified. Significant amount of dense free fluid (possibly bile) within the april hepatis. The lesser sac appears to be spared, which is not a common finding with acute pancreatitis. Pancreas: Global enlargement of the pancreas is redemonstrated, increased from previous examination with surrou nding inflammatory change for which acute pancreatitis is suspected. The pancreas enhances in its entirety, without evidence of necrosis. Spleen: The spleen enhances homogeneously and is not enlarged. Kidneys: Redemonstration of multiple rounded areas of fluid attenuation within the bilateral kidneys, unchanged from prior and consistent with cysts. Redemonstration of a 2 cm calculus within the interp olar region of the right kidney. The remainder of the bilateral kidneys enhance symmetrically without hydronephrosis or additional holli al calculi. Adrenal glands: Unremarkable. Gastrointestinal tract: Fecal stasis within the rectum. Appendix: The air-filled appendix is of normal caliber (axial series, images 89 through 112) Vasculature: The inferior vena cava is narrowed and is slit like, consistent with severe hypovolemia. Filling defect is suspected within the right common iliac vein with a possible filling defect within the left common iliac vein. Lymph nodes: Scattered nonpathologically enlarged or morphologically suspicious lymph nodes within the retroperito neum and at the root of the mesentery. Pelvic structures: The bladder is significantly distended, and otherwise unremarkable. The prostate gland is minimally enlarged. Body wall and musculoskeletal: Small fat-containing umbilical hernia. Age-appropriate degenerative disease within the lumbosacral spine. IMPRESSION: Acute interstitial pancreatitis, as detailed above. Significant amount of dense fluid at the level of the april hepatis. Pneumobilia is redemonstrated. Irregular contour of the gallbladder, likely secondary to patient's history. Findings consistent with severe hypovolemia. Possible filling defects within the bilateral common iliac veins Reviewed, dictated and finalized at location A.
--- NOTE | ~2025-01-20 | US_ITS ---
EXAM: ABDOMEN ULTRASOUND HISTORY: epigatric pain, vomiting COMPARISON: None FINDINGS: LIVER: The liver is increased in echogenicity and unremarkable in size. The portal vein is patent, demonstrating hepatopedal flow. GALLBLADDER: Poor visualization of the gallbladder secondary to overlying bowel gas.. BILE DUCTS: Common bile duct measures 3.7mm. PANCREAS: Limited evaluation of the pancreas secondary to overlying bowel gas IMPRESSION: Limited visualization of the gallbladder, secondary to overlying bowel gas. Of note, patient has a history of gallstone pancreatitis for which the gallbladder was not removed (b ut a large cholecystostomy placed and gallbladder stone removed). No cross-sectional imaging has been performed since this episode. Cholecystostomy was removed on 05/29/2024. Reviewed, dictated and finalized at location A. IMPRESSION: Limited visualization of the gallbladder, secondary to overlying bowel gas. Of note, patient has a history of gallstone pancreatitis for which the gallblad missy was not removed (but a large cholecystostomy placed and gallbladder stone r emoved). No cross-sectional imaging has been performed since this episode. Cholecystostomy was removed on 05/29/2024.
[2025-01-20 16:33] VITALS: BP 151/101; PULSE 86; RESP 20; TEMP 36.2; O2SAT 94
--- NOTE | 2025-01-20 16:59 | ED_ITS ---
HPI - Abdominal Pain General Chief Complaint: Abdominal Pain <Pebbles Boss PA-C - Last Filed: 01/23/25 18:02> Stated Complaint: abd pain and vomiting <Pebbles Boss PA-C - Last Filed: 01/23/25 18:02> Time Seen by Provider: 01/20/25 16:59 <Pebbles Boss PA-C - Last Filed: 01/23/25 18:02> Focused HPI: This is a 74 year old male that presents to the ER for abdominal pain. Ongoing over the last couple of hours. Reports nausea and vomiting. Reports he ate a sausage omelette and hash browns for breakfast. Reports similar symptoms in the past due to his gallbladder last year. Reports they attempted cholecystectomy, but were unable to remove his gallbladder due to adhesions. Two stones were removed. Dr. Mc told them next time they would need to see a specialist in [place] for surgery. Denies fevers, diarrhea. GENERAL: Uncomfortable, well-nourished, and in no acute distress. HEAD: Normocephalic, atraumatic. CHEST: Clear to auscultation. ?No respiratory distress. HEART: Regular rate and rhythm.? NEURO: ?Alert and oriented x3. Patient screened in triage and initial orders placed.? ?Additional care and disposition to be based upon?diagnostic testing and treatment. <Pebbles Boss PA-C - Last Filed: 01/23/25 18:02> History of Present Illness HPI narrative: HPI as documented in the medical screening exam. <Felipe Quintero MD - Last Filed: 01/21/25 06:14> Related Data Home Medications: Home Medications ?Medication ?Instructions ?Recorded ?Confirmed ?Last Taken ?Type nebivolol 20 mg tablet 20 mg PO HS 04/30/24 01/21/25 01/20/25 History <Pebbles Boss PA-C - Last Filed: 01/23/25 18:02> Allergies/Adverse Reactions: Allergies Allergy/AdvReac Type Severity Reaction Status Date / Time niacin Allergy Unknown Unknown Verified 01/21/25 01:19 NSAIDS (Non-Steroidal Allergy Unknown Anemia Verified 01/21/25 01:19 Anti-Inflamma aspirin AdvReac Unknown gi bleed Verified 01/21/25 01:19 <Pebbles Boss PA-C - Last Filed: 01/23/25 18:02> Review of Systems 2 Review of Systems: All systems reviewed & are unremarkable except as noted in HPI and below <Pebbles Boss PA-C - Last Filed: 01/23/25 18:02> [facility] Past Medical History Medical History: Medical History Leukocytosis Rectal bleeding Hypertension Hyperlipidemia Kidney stones History of blood transfusion Stomach ulcer Sleep apnea with use of continuous positive airway pressure (CPAP) Angina pectoris, unstable Obesity (BMI 30-39.9) Erectile dysfunction Polycythemia Lumbar spinal stenosis Abdominal aortic atherosclerosis Excess ear wax <Pbebles Boss PA-C - Last Filed: 01/23/25 18:02> Surgical History Surgical History: Surgical History History of laparoscopic cholecystectomy Robotic assisted diagnostic laparoscopy with placement of cholecystostomy tube and removal of gallstone 05/06/24 Hx of heart artery stent History of toe surgery Status post phlebectomy <Pebbles Bsos PA-C - Last Filed: 01/23/25 18:02> Family History Family History: Family History Other Cancer Family history of cardiovascular disease Family history of elevated blood lipids Hypertension <Pebbles Boss PA-C - Last Filed: 01/23/25 18:02> Social History Social History: Social History Smoking packs per day: 1 Smoking cigarettes per day: 20.0 Years smoked: 15 Smoking pack-years: 15.00 Smoking status: Former smoker Tobacco type: cigarettes Smoking end date: 05/02/85 Alcohol intake: never Drinks per week: 1 Substance use: never Substance use type: does not use Do You Feel Safe in your Home?: Yes Lack of Transportation: No Lack of Food: Never True Current Housing: I Have Housing Concerned About Future Housing: No Difficulty Paying Gas/Electric Bills: No Difficulty Paying for Meds: No Currently Unemployed: No Education: Associate Degree Difficulty w/ Childcare or Family Care: No Living arrangements: with friend(s) Spiritual care concerns: No <Pebbles Boss PA-C - Last Filed: 01/23/25 18:02> Exam 2 Narrative: GENERAL: Well-developed, well-nourished, and in no acute distress. HEAD: Normocephalic, atraumatic. EYES: PERRLA and EOMI. CHEST: Clear to auscultation. No respiratory distress. No wheezes rales or rhonchi HEART: Regular rate and rhythm. No murmur heard. Normal peripheral pulses. ABDOMEN: Soft, tender to palpation in the epigastrium and right upper quadrant without rebound or guarding, distended, normal active bowel sounds. EXTREMITIES: Normal range of motion. No edema. SKIN: Warm, dry, no rash. NEURO: Alert and oriented x3. No focal deficit. Moving all 4 limbs spontaneously PSYCH: Normal mood and affect. <Felipe Quintero MD - Last Filed: 01/21/25 06:14> Course Course Emergency Course: 21:54 - CT abdomen pelvis demonstrates a changes consistent with acute pancreatitis with free fluid in the abdomen. Gallbladder is difficult to evaluate. There possible filling defects of the bilateral common iliac veins that may be due to contrast timing versus hypokalemia. Chart review shows Dr. cM previously recommended evaluation by hepatobiliary surgery. I discussed the patient with general surgeon, Dr. Payton who agrees. The patient is agreeable to transfer. 22:15 - I briefly discussed the patient with [facility] program coordinator. Hepatobiliary surgery is not available in their system. 22:24 - [facility] Dr[facility] Chase who agrees to consult. A hospitalist will need to accept. 23:50 - I discussed the patient with [facility] hepatobiliary surgeon, Dr. Kang who requests the patient be transferred to [facility] where the hepatobiliary team evaluate the patient. [facility] program coordinator to contact hospitalist at [facility]. 01:12 - I discussed the patient with [facility] hospitalist, Dr. Dacosta who accepts transfer. <Felipe Quintero MD - Last Filed: 01/21/25 06:14> Vital Signs Vital signs: Vital Signs Temperature 97.2 F L 01/20/25 16:33 Pulse Rate 86 01/20/25 16:33 Respiratory Rate 20 01/20/25 16:33 Blood Pressure 151/101 H 01/20/25 16:33 Pulse Oximetry 94 01/20/25 16:33 Temperature 97.2 F L 01/20/25 16:33 Pulse Rate 84 01/21/25 05:45 Respiratory Rate 16 01/21/25 05:45 Blood Pressure 153/82 H 01/21/25 05:45 Pulse Oximetry 95 01/21/25 06:01 Oxygen Delivery Nasal Cannula 01/21/25 06:01 Oxygen Flow Rate 3 01/21/25 06:01 <Pebbles Boss PA-C - Last Filed: 01/23/25 18:02> Vital Signs Temperature 97.2 F L 01/20/25 16:33 Pulse Rate 86 01/20/25 16:33 Respiratory Rate 20 01/20/25 16:33 Blood Pressure 151/101 H 01/20/25 16:33 Pulse Oximetry 94 01/20/25 16:33 Temperature 97.2 F L 01/20/25 16:33 Pulse Rate 84 01/21/25 05:45 Respiratory Rate 16 01/21/25 05:45 Blood Pressure 153/82 H 01/21/25 05:45 Pulse Oximetry 95 01/21/25 06:01 Oxygen Delivery Nasal Cannula 01/21/25 06:01 Oxygen Flow Rate 3 01/21/25 06:01 <Felipe Quintero MD - Last Filed: 01/21/25 06:14> MDM - Abdominal Pain MDM Narrative Medical decision making narrative: Plan: Labs, imaging, pain control, IV fluids, reassess <Felipe Quintero MD - Last Filed: 01/21/25 06:14> Differential Diagnosis Differential diagnosis: Likely calculus of kidney, diverticulitis, gastroenteritis, pancreatitis, small bowel obstruction and other (Cholecystitis, biliary colic, metabolic abnormality, bowel perforation, other) <Felipe Quintero MD - Last Filed: 01/21/25 06:14> Lab Data Result diagrams: 01/20/25 18:35 01/20/25 18:35 <Pebbles Boss PA-C - Last Filed: 01/23/25 18:02> Labs: Lab Results 04/06/0801/20/25 01/20/25 Range/Units 18:35 19:28 20:05 WBC 32.9 H (4.5-10.0) K/mm3 RBC 6.25 H (4.6-6.20) M/mm3 Hgb 18.5 H (14.0-18.0) g/dL Hct 56.2 H (42.0-52.0) % MCV 89.9 (80-100) fl MCH 29.6 (26-34) pg MCHC 32.9 (32-36) g/dl RDW 13.1 (11.5-14.5) % Plt Count 206 (150-375) k/mm3 MPV 10.3 (7.4-10.4) fl Immature Gran % (Auto) 0.8 H (0-0.5) % Neut % (Auto) 88.5 H (45.5-73.1) % Lymph % (Auto) 4.4 L (18.3-44.2) % Swisher % (Auto) 6.1 (2.6-8.5) % Eos % (Auto) 0.0 (0-4.4) % Baso % (Auto) 0.2 (0.2-1.2) % Lymph # (Auto) 1.46 (0.9-3.2) K/mm3 Swisher # (Auto) 2.0 H (0.1-0.6) K/mm3 Eos # (Auto) 0.0 (0-0.3) K/mm3 Baso # (Auto) 0.1 (0.0-0.1) K/mm3 Abs Immat Gran (auto) 0.25 H (0.00-0.031) K/mm3 Absolute Neuts (auto) 29.1 H (1.3-6.7) K/mm3 Absolute Nucleated RBC 0.000 (0.0-0.012) K/mm3 Nucleated RBC % 0.0 (0.0-0.2) % Sodium 142 (137-145) mmol/L Potassium 4.0 (3.4-5.0) mmol/L Chloride 103 (98-107) mmol/L Carbon Dioxide 26 (22-30) mmol/L Anion Gap 13 H (4-12) mmol/L BUN 25 H D (9-20) mg/dL Creatinine 0.87 (0.7-1.3) mg/dL Estim Creat Clear Calc 69 ml/min Estimated GFR > 60 (59 - ) Glucose 227 H (65-110) mg/dL Lactic Acid 2.5 H (0.7-2.0) mmol/L Calcium 9.5 (8.4-10.2) mg/dL Total Bilirubin 3.0 H (0.2-1.3) mg/dL AST 491 H (17-59) U/L ALT 255 H (6-50) U/L Alkaline Phosphatase 69 (38-126) U/L Total Protein 7.0 (6.3-8.2) g/dL Albumin 4.5 (3.5-5.1) g/dL Lipase 19709 H (23-300) U/L Urine Color Yellow (Yellow) Urine Appearance Clear (Clear) Urine pH 5.0 (5.0-9.0) Ur Specific [place] 1.017 (1.001-1.035) Urine Protein 1+ H (Negative) mg/dL Urine Glucose (UA) Negative (Negative) mg/dL Urine Ketones Trace H (Negative) mg/dL Ur Blood (Man) 2+ H (Negative) Urine Nitrate Negative (Negative) Urine Bilirubin Negative (Negative) Urine Urobilinogen 1.0 (<2.0) mg/dL Add Ur Microanalysis Reviewed Leukocyte Esterase Rfl Trace H (Negative) EDWIN/UL Urine RBC 51-100 H (0-2) /hpf Urine WBC 0-5 (0-3) /hpf Ur Squamous Epith Cells None seen (Few) /hpf Urine Bacteria None seen /hpf Urine Casts 6-10 01/20/25 Range/Units 23:11 WBC (4.5-10.0) K/mm3 RBC (4.6-6.20) M/mm3 Hgb (14.0-18.0) g/dL Hct (42.0-52.0) % MCV (80-100) fl MCH (26-34) pg MCHC (32-36) g/dl RDW (11.5-14.5) % Plt Count (150-375) k/mm3 MPV (7.4-10.4) fl Immature Gran % (Auto) (0-0.5) % Neut % (Auto) (45.5-73.1) % Lymph % (Auto) (18.3-44.2) % Swisher % (Auto) (2.6-8.5) % Eos % (Auto) (0-4.4) % Baso % (Auto) (0.2-1.2) % Lymph # (Auto) (0.9-3.2) K/mm3 Swisher # (Auto) (0.1-0.6) K/mm3 Eos # (Auto) (0-0.3) K/mm3 Baso # (Auto) (0.0-0.1) K/mm3 Abs Immat Gran (auto) (0.00-0.031) K/mm3 Absolute Neuts (auto) (1.3-6.7) K/mm3 Absolute Nucleated RBC (0.0-0.012) K/mm3 Nucleated RBC % (0.0-0.2) % Sodium (137-145) mmol/L Potassium (3.4-5.0) mmol/L Chloride (98-107) mmol/L Carbon Dioxide (22-30) mmol/L Anion Gap (4-12) mmol/L BUN (9-20) mg/dL Creatinine (0.7-1.3) mg/dL Estim Creat Clear Calc ml/min Estimated GFR (59 - ) Glucose (65-110) mg/dL Lactic Acid 2.1 H (0.7-2.0) mmol/L Calcium (8.4-10.2) mg/dL Total Bilirubin (0.2-1.3) mg/dL AST (17-59) U/L ALT (6-50) U/L Alkaline Phosphatase (38-126) U/L Total Protein (6.3-8.2) g/dL Albumin (3.5-5.1) g/dL Lipase (23-300) U/L Urine Color (Yellow) Urine Appearance (Clear) Urine pH (5.0-9.0) Ur Specific [place] (1.001-1.035) Urine Protein (Negative) mg/dL Urine Glucose (UA) (Negative) mg/dL Urine Ketones (Negative) mg/dL Ur Blood (Man) (Negative) Urine Nitrate (Negative) Urine Bilirubin (Negative) Urine Urobilinogen (<2.0) mg/dL Add Ur Microanalysis Leukocyte Esterase Rfl (Negative) EDWIN/UL Urine RBC (0-2) /hpf Urine WBC (0-3) /hpf Ur Squamous Epith Cells (Few) /hpf Urine Bacteria /hpf Urine Casts <Pebbles Boss PA-C - Last Filed: 01/23/25 18:02> Lab Results 01/20/25 01/20/25 01/20/25 Range/Units 18:35 19:28 20:05 WBC 32.9 H (4.5-10.0) K/mm3 RBC 6.25 H (4.6-6.20) M/mm3 Hgb 18.5 H (14.0-18.0) g/dL Hct 56.2 H (42.0-52.0) % MCV 89.9 (80-100) fl MCH 29.6 (26-34) pg MCHC 32.9 (32-36) g/dl RDW 13.1 (11.5-14.5) % Plt Count 206 (150-375) k/mm3 MPV 10.3 (7.4-10.4) fl Immature Gran % (Auto) 0.8 H (0-0.5) % Neut % (Auto) 88.5 H (45.5-73.1) % Lymph % (Auto) 4.4 L (18.3-44.2) % Swisher % (Auto) 6.1 (2.6-8.5) % Eos % (Auto) 0.0 (0-4.4) % Baso % (Auto) 0.2 (0.2-1.2) % Lymph # (Auto) 1.46 (0.9-3.2) K/mm3 Swisher # (Auto) 2.0 H (0.1-0.6) K/mm3 Eos # (Auto) 0.0 (0-0.3) K/mm3 Baso # (Auto) 0.1 (0.0-0.1) K/mm3 Abs Immat Gran (auto) 0.25 H (0.00-0.031) K/mm3 Absolute Neuts (auto) 29.1 H (1.3-6.7) K/mm3 Absolute Nucleated RBC 0.000 (0.0-0.012) K/mm3 Nucleated RBC % 0.0 (0.0-0.2) % Sodium 142 (137-145) mmol/L Potassium 4.0 (3.4-5.0) mmol/L Chloride 103 (98-107) mmol/L Carbon Dioxide 26 (22-30) mmol/L Anion Gap 13 H (4-12) mmol/L BUN 25 H D (9-20) mg/dL Creatinine 0.87 (0.7-1.3) mg/dL Estim Creat Clear Calc 69 ml/min Estimated GFR > 60 (59 - ) Glucose 227 H (65-110) mg/dL Lactic Acid 2.5 H (0.7-2.0) mmol/L Calcium 9.5 (8.4-10.2) mg/dL Total Bilirubin 3.0 H (0.2-1.3) mg/dL AST 491 H (17-59) U/L ALT 255 H (6-50) U/L Alkaline Phosphatase 69 (38-126) U/L Total Protein 7.0 (6.3-8.2) g/dL Albumin 4.5 (3.5-5.1) g/dL Lipase 71748 H (23-300) U/L Urine Color Yellow (Yellow) Urine Appearance Clear (Clear) Urine pH 5.0 (5.0-9.0) Ur Specific [place] 1.017 (1.001-1.035) Urine Protein 1+ H (Negative) mg/dL Urine Glucose (UA) Negative (Negative) mg/dL Urine Ketones Trace H (Negative) mg/dL Ur Blood (Man) 2+ H (Negative) Urine Nitrate Negative (Negative) Urine Bilirubin Negative (Negative) Urine Urobilinogen 1.0 (<2.0) mg/dL Add Ur Microanalysis Reviewed Leukocyte Esterase Rfl Trace H (Negative) EDWIN/UL Urine RBC 51-100 H (0-2) /hpf Urine WBC 0-5 (0-3) /hpf Ur Squamous Epith Cells None seen (Few) /hpf Urine Bacteria None seen /hpf Urine Casts 6-10 01/20/25 Range/Units 23:11 WBC (4.5-10.0) K/mm3 RBC (4.6-6.20) M/mm3 Hgb (14.0-18.0) g/dL Hct (42.0-52.0) % MCV (80-100) fl MCH (26-34) pg MCHC (32-36) g/dl RDW (11.5-14.5) % Plt Count (150-375) k/mm3 MPV (7.4-10.4) fl Immature Gran % (Auto) (0-0.5) % Neut % (Auto) (45.5-73.1) % Lymph % (Auto) (18.3-44.2) % Swisher % (Auto) (2.6-8.5) % Eos % (Auto) (0-4.4) % Baso % (Auto) (0.2-1.2) % Lymph # (Auto) (0.9-3.2) K/mm3 Swisher # (Auto) (0.1-0.6) K/mm3 Eos # (Auto) (0-0.3) K/mm3 Baso # (Auto) (0.0-0.1) K/mm3 Abs Immat Gran (auto) (0.00-0.031) K/mm3 Absolute Neuts (auto) (1.3-6.7) K/mm3 Absolute Nucleated RBC (0.0-0.012) K/mm3 Nucleated RBC % (0.0-0.2) % Sodium (137-145) mmol/L Potassium (3.4-5.0) mmol/L Chloride (98-107) mmol/L Carbon Dioxide (22-30) mmol/L Anion Gap (4-12) mmol/L BUN (9-20) mg/dL Creatinine (0.7-1.3) mg/dL Estim Creat Clear Calc ml/min Estimated GFR (59 - ) Glucose (65-110) mg/dL Lactic Acid 2.1 H (0.7-2.0) mmol/L Calcium (8.4-10.2) mg/dL Total Bilirubin (0.2-1.3) mg/dL AST (17-59) U/L ALT (6-50) U/L Alkaline Phosphatase (38-126) U/L Total Protein (6.3-8.2) g/dL Albumin (3.5-5.1) g/dL Lipase (23-300) U/L Urine Color (Yellow) Urine Appearance (Clear) Urine pH (5.0-9.0) Ur Specific [place] (1.001-1.035) Urine Protein (Negative) mg/dL Urine Glucose (UA) (Negative) mg/dL Urine Ketones (Negative) mg/dL Ur Blood (Man) (Negative) Urine Nitrate (Negative) Urine Bilirubin (Negative) Urine Urobilinogen (<2.0) mg/dL Add Ur Microanalysis Leukocyte Esterase Rfl (Negative) EDWIN/UL Urine RBC (0-2) /hpf Urine WBC (0-3) /hpf Ur Squamous Epith Cells (Few) /hpf Urine Bacteria /hpf Urine Casts <Felipe Quintero MD - Last Filed: 01/21/25 06:14> Imaging Data Radiologist's impression: ITS Impressions Upper Quadrant Ultrasound 01/20/25 18:33 IMPRESSION: Limited visualization of the gallbladder, secondary to overlying bowel gas. Of note, patient has a history of gallstone pancreatitis for which the gallbladder was not removed (but a large cholecystostomy placed and gallbladder stone removed). No cross-sectional imaging has been performed since this episode. Cholecystostomy was removed on 05/29/2024. Abdomen/Pelvis CT 01/20/25 21:09 IMPRESSION: Acute interstitial pancreatitis, as detailed above. Significant amount of dense fluid at the level of the april hepatis. Pneumobilia is redemonstrated. Irregular contour of the gallbladder, likely secondary to patient's history. Findings consistent with severe hypovolemia. Possible filling defects within the bilateral common iliac veins <Pebbles Boss PA-C - Last Filed: 01/23/25 18:02> ITS Impressions Upper Quadrant Ultrasound 01/20/25 18:33 IMPRESSION: Limited visualization of the gallbladder, secondary to overlying bowel gas. Of note, patient has a history of gallstone pancreatitis for which the gallbladder was not removed (but a large cholecystostomy placed and gallbladder stone removed). No cross-sectional imaging has been performed since this episode. Cholecystostomy was removed on 05/29/2024. Abdomen/Pelvis CT 01/20/25 21:09 IMPRESSION: Acute interstitial pancreatitis, as detailed above. Significant amount of dense fluid at the level of the april hepatis. Pneumobilia is redemonstrated. Irregular contour of the gallbladder, likely secondary to patient's history. Findings consistent with severe hypovolemia. Possible filling defects within the bilateral common iliac veins <Felipe Quintero MD - Last Filed: 01/21/25 06:14> Discharge Plan Discharge Clinical Impression: Abdominal pain, epigastric Acute pancreatitis Qualifiers: Pancreatitis type: unspecified pancreatitis type Acute pancreatitis complication: unspecified Qualified Code(s): K85.90 - Acute pancreatitis without necrosis or infection, unspecified <MUNDO Montoya Last Filed: 01/23/25 18:02> Patient Disposition: Acute Care Hospital <MUNDO Montoya Last Filed: 01/23/25 18:02> Condition: Serious <MUNDO Montoya Last Filed: 01/23/25 18:02> Instructions: Antibiotic Form <MUNDO Montoya Last Filed: 01/23/25 18:02> Patient Language: Ethiopian <MUNDO Montoya Last Filed: 01/23/25 18:02> Prescriptions: No Action metformin 500 mg tablet 500 mg PO BIDWMEAL Qty: 180 3RF nebivolol 20 mg tablet 20 mg PO HS Rx Instructions: Takes at HS acyclovir [Zovirax] 5 % ointment 1 applic topical 6XD 7 Days Qty: 10 1RF hydrocodone-acetaminophen 5-325 mg tablet 1 tablet PO Q6H PRN (Reason: pain) Qty: 30 0RF pantoprazole 40 mg tablet,delayed release (DR/EC) 40 mg PO QAM Qty: 90 1RF lisinopril 10 mg tablet 10 mg PO DAILY Qty: 90 1RF Rx Instructions: Takes at HS rosuvastatin 20 mg tablet 20 mg PO DAILY Qty: 90 1RF Rx Instructions: Takes at HS hydrochlorothiazide 25 mg tablet 25 mg PO QHS Qty: 90 1RF sildenafil (pulm.hypertension) 20 mg tablet 20 mg PO DAILY PRN (Reason: Sexual Activity) Qty: 90 1RF <MUNDO Montoya Last Filed: 01/23/25 18:02> Follow-up/Referrals: Dante Camacho MD [Primary Care Provider] - <MUNDO Montoya Last Filed: 01/23/25 18:02> Time of Disposition: 01:12 <MUNDO Montoya Last Filed: 01/23/25 18:02> 01:12 <Felipe Quintero MD - Last Filed: 01/21/25 06:14>
--- OUTSIDE RECORDS SUMMARY | 2025-01-20 17:06 | XMS_ITS | Referral Summary ---
Author Organization [facility] Address [facility] [place] [address] Care Team Providers Care Sport Internship Name Role Phone Dante Camacho MD Unavailable [phone] Dante Camacho MD Primary Care Provider [phone] Encounters Date Type Department Care Team Description 12/12/2024 1:00 PM PUBLIC SERVICE ADMINISTRATOR Office Visit [facility] Cardiology [address] [place] [address] Dante Marrufo MD History of coronary artery stent placement (Primary Dx); Coronary artery disease involving [place] coronary artery of [place] heart without angina pectoris from Last 3 Months Allergies No known active allergies Medications hydroCHLOROth iazide (HYDRODIURIL) 25 mg tablet take 1 tablet (25MG) by oral route every day 0 07/02/[address] (PROTONIX) 40 mg EC tablet take 1 tablet (40MG) by oral route every day 0 07/02/20 12 Active nebivolol (BYSTOLIC) 20 mg tablet take 1 tablet (20MG) by oral route every day 0 07/02/20 12 Active lisinopril (PRINIVIL,ZES TRIL) 10 mg tablet take 1 tablet (10MG) by ORAL route every day 0 07/02/20 12 Active rosuvastatin (CRESTOR) 20 mg tablet TK 1 T PO QD 0 10/29/19 19 Active aspirin 81 mg enteric coated tablet 09/01/2014spirin, po solid 81 mg Tablet, delayed release (enteric coated)POdailyCurrent Medication 09/01/20 14 Active multivitamin tabletIndicat ions:Vitamin Deficiency Prevention 09/01/2014One daily multivitamin, po solid TabletPOdailyCurrent Medication 09/01/20 14 Active ascorbate calcium 500 mg tablet 09/01/2014Vitamin c, po solid 500 mg TabletPOdailyCurrent Medication 09/01/20 14 Active sildenafil, pulm.hyperten la nena, (REVATIO) 20 mg tablet Take 1 tablet (20 mg total) by mouth daily as needed 5 08/21/20 19 Active coenzyme Q10 100 mg capsule Take 1 capsule (100 mg total) by mouth daily Act tu metFORMIN (GLUCOPHAGE) 500 mg tablet Take 2 tablets (1,000 mg total) by mouth 10/30/19 25 Active Active Problems Problem Noted Date Diagnosed Date DELANO (obstructive sleep apnea) 11/15/2021 Assessment & Plan (06/10/2024 9:56 AM CDT): The patient continues to benefit from CPAP at 13 cm water pressure for ongoing symptoms of DELANO. His DME supplier is [employer]. He will follow up here in 1 year. Assessment & Plan (06/05/2023 10:01 AM CDT): The patient continues to benefit from CPAP at 13 cm water pressure due to ongoing symptoms of DELANO. His DME supplier is [employer] but he has been buying supplies online. He will follow up here in 1 year. Assessment & Plan (05/30/2022 9:42 AM CDT): Patient continue to wear CPAP at 13 cm water pressure while sleeping. His DME is [employer]. Assessment & Plan (11/15/2021 11:09 AM PUBLIC SERVICE ADMINISTRATOR): The patient stated that the pressure was too high, I have decreased the pressure to 13 cm water pressure. The patient denied need for supplies. DME company [employer]. Patient is benefitting from CPAP Hypersomnia 06/27/2021 Essential hypertension 06/01/2021 Class 2 obesity with body ma ss index (BMI) of 37.0 to 37.9 in adult 06/01/2021 Pulmonary hypertension 05/30/2021 Shortness of breath 04/25/2021 Assessment & Plan (04/25/2021 3:31 PM CDT): Shortness of breath is likely related to obesity. I will obtain 2D echocardiogram for further evaluation of dyspnea. Abnormal PFTs 04/25/2021 Assessment & Plan (04/25/2021 3:31 PM CDT): PFT's show mild restrictive ventilatory defect and mild reduction in gas exchange capacity. I will obtain CT scan of the chest for better evaluation of lung parenchyma. Coronary artery disease invo lving [place] coronary artery of [place] heart without angina pectoris 03/11/2019 History of coronary artery stent placement 03/11 Assessment & Plan (04/25/2021 3:32 PM CDT): Patient is following with [facility] tomorrow. Recent stress test did not show evidence of inducible ischemia. Varicose veins of lower extremity 02/05/2019 Assessment & Plan (10/02/2019 1:43 PM PUBLIC SERVICE ADMINISTRATOR): Impression: Patient recover well status post right lower extremity varicose vein excision with stab phlebectomies. His surgical wounds have healed well. Plan: Recommend ongoing medical grade knee-high compression stocking of his right lower extremity. Patient follow-up on as-needed basis. Assessment & Plan (03/28/2019 2:19 PM CDT): Impression: Patient with painful right lower extremity varicosities associated with significant reflux performed on venous scan today. Patient would like to undergo surgical intervention, however due to his job would like to delay procedure for the next few months. Plan: Follow-up in 2 months for re-evaluation and discussion regarding right lower extremity varicose vein excision Erythrocytosis 09/01/2014 Resolved Problems Problem Noted Date Diagnosed Date Resolved Date Snoring 06/27/2021 11/15/2021 Assessment & Plan (06/27/2021 2:54 PM CDT): I have ordered a nocturnal polysomnogram split night protocol if necessary, no MSLT. Immunizations Immunization Administration Dates Next Due Pneumococcal Polysaccharide PPV23 10/04/2018 Social History Tobacco Use Types Packs/Day Years Used Date Smoking Tobacco: Former Cigarettes Q uit: 1985 Smokeless Tobacco: Never Tobacco Cessation:Counseling Given: Not Answered Alcohol Use Standard Drinks/Week Comments Yes 0 (1 standard drink = 0.6 oz pur e alcohol) AUDIT-C Answer Date Recorded Q1: How often do you have a drink containing alc ohol? Never 06/27/2021 Average Number of Drinks Not on file 021 Q3: How often do you have si x or more drinks on one occasion? Never 06/27/2021 Sex and Gender Information Value Date Recorded Sex Assigned at Not on file Legal Sex Male 1:08 AM PUBLIC SERVICE ADMINISTRATOR Gender Identity Male 06/20/2021 8:16 PM CDT Sexual Orientation Straight 06/20/2021 8: 16 PM CDT Last Filed Vital Signs Vital Sign Reading Time Taken Comments Blood Pressure 110/70 12/12/2024 1:03 PM PUBLIC SERVICE ADMINISTRATOR Pulse 70 12/12/2024 1:03 PM PUBLIC SERVICE ADMINISTRATOR Temperature 36.6 C (97.8 F) 06/05/2023 9:31 AM CDT Respiratory Rate 18 06/10/2024 9:38 AM CDT Oxygen Saturation 98% 12/12/2024 1:03 PM PUBLIC SERVICE ADMINISTRATOR Inhaled Oxygen Concentration - - Weight 96.1 kg (211 lb 14.4 oz) 12/12/2024 1:03 PM PUBLIC SERVICE ADMINISTRATOR Height 165.1 cm (5' 5 ) 12/12/2024 1:03 PM PUBLIC SERVICE ADMINISTRATOR Body Mass Index 35.26 12/12/2024 1:03 PM PUBLIC SERVICE ADMINISTRATOR Plan of Treatment Not on file Procedures Procedure Name Priority Date/Time Associated Diagnosis Comments POCT LIPID PANEL Routine 12/12/2024 2:51 PM PUBLIC SERVICE ADMINISTRATOR Coronary artery disease involving [place] coronary artery of [place] heart without angina pectoris from Last 3 Months Results * POCT lipid panel (12/12/2024 2:51 PM PUBLIC SERVICE ADMINISTRATOR) Cholesterol, POC 121 mg/dL Comment:GLU = 137 HDL, POC <15 mg/dL Triglycerides, POC 265 mg/dL LDL Cholesterol POC 53 mg/dL Chol/HDL Ratio, POC N/A Non-HDL Cholesterol, POC N/A mg/dL Cholesterol Total, POC 121 mg/dL Capillary blood 12/12/2024 2 :51 PM PUBLIC SERVICE ADMINISTRATOR us Dante Marrufo MD POINT OF CARE TEST ORDER SUSAN Final Result from Last 3 Months Insurance [facility] MDCR HMO REF [facility] Address: [address] [address] [place] [address] [facility] MEDICARE ADVANTAGE [facility] Address: [address] [address] [place] [address] Advance Directives For more information, please contact: [phone] Documents on File Type Date Recorded Patient Plastics Engineering Teacher Expl anation ADVANCE DIRECTIVE 09/10/2019 12:00 AM POW ER OF HEEL GOUGER FINANCIAL/MEDICAL Care Teams Sport Internship Relationship Specialty Start Date End Date Dante Camacho MD PCP - General Family Medicine 09/17/19 Dante Camacho MD 03/28/19
--- OUTSIDE RECORDS SUMMARY | 2025-01-20 17:06 | XMS_ITS | Patient Health Record ---
Author Organization [facility] Address [address] [facility] [place] [address] Care Team Providers Care Duplex Trimmer Name Role Phone Santiago Espinal [phone] REASON FOR REFERRAL No Information MEDICATIONS Medication SIG (Take, Route, Frequency, Duration) Notes Start Date End Date Status hydroCHLOROthiazide 25 MG 1 tablet in th e morning Orally Once a day Active Rosuvastatin Calcium 20 MG 1 tablet Oral ly Once a day Active Sildenafil Citrate 20 MG 1 tablet Orally as needed Active Gabapentin 300 MG 1 capsule Orally Three times a day for 30 day(s) 04/06/2020 Not-Taking Lisinopril 10 MG 1 tablet Orally Once a day Active Bystolic 20 MG 1 tablet Orally Once a day Active Pantoprazole Sodium 40 MG 1 tablet Orall y Once a day Active HYDROcodone-Acetaminophen 5-325 MG 1 tablet as needed Orally BID for 30 days 01/11/2022 Active SOCIAL HISTORY Tobacco Use: Social History Observation Description Date Details (start date - stop date) Never Smoker NA - NA Sex Assigned At : Social History Observation Description Sex Assigned At Unknown Tobacco Use/Smoking Question Answer Notes Are you a nonsmoker Alcohol Screen (Audit-C) Question Answer Notes Did you have a drink containing alcohol in the p ast year? Yes Points 0 Interpretation Negative PROBLEMS Problem Type ICD Code Onset Dates Problem Status W/U Status Risk SNOMED Code Notes Problem Spondylosis without myelopathy or radiculopathy, lumbosacral region (M47.817) Active confirmed 88147204 Problem Spinal stenosis, thoracic region (M48.04) Active confirmed 37433252 Problem Spinal stenosis, lumbar region (M48.06) Active confirmed Spinal stenosis of lumbar region (00778659) Problem Degenerative lumbar spinal stenosis (M48.061) Active confirmed [id number] PLAN OF TREATMENT No Information MEDICATIONS ADMINISTERED Medication Instructions Date of Administration Dosage Notes Left L3-4, L4-5 and L5-S1 Fa cet Joint Injections 03/16/2020 Left L3-4, L4-5 and L5-S1 Fa cet Joint Injections 03/23/2020 Left L4 Selective Epidural S teroid Injection 04/06/2020 Left L5 Selective Epidural S teroid Injection 03/09/2020 Left T12 Selective Epidural Steroid Injecction 06/15/2020 Midline L2-3 ARTURO 04/13/2020 Right L3-4, L4-5 and L5-S1 F acet Joint Injections 03/16/2020 Right L3-4, L4-5 and L5-S1 F acet Joint Injections 03/23/2020 Right L4 Selective Epidural Steroid Injection 04/06/2020 Right L5 Selective Epidural Steroid Injection 03/09/2020 right T12 SESI 06/15/2020 MEDICAL (GENERAL) HISTORY Medical History History ICD Code hypertension kidney stones Surgical History Surgery Date(Month/Year) cataract removal vein ligation foot surgery
--- OUTSIDE RECORDS SUMMARY | 2025-01-20 17:06 | XMS_ITS | Clinical Summary ---
Author Organization [facility] Address [address] [place] [address] Phone Care Team Providers Care Manager Sharepoint Name Role Phone Dante Camacho MD Primary Care Provider [phone] Allergies No known active allergies Medications nebivoloL (BYSTOLIC) 20 mg Tablet Take 1 Tablet by mouth daily. Active pantoprazole (PROTONIX) 40 mg Tablet, Delayed Release (E.C.) Take 40 mg by mouth daily. Active hydroCHLOROthiazi de 25 mg tablet Take 25 mg by mouth daily. Active lisinopriL (PRINIVIL) 10 mg tablet Take 10 mg by mouth daily. Active rosuvastatin (CRESTOR) 20 mg tablet Take 20 mg by mouth daily at bedtime. Active HYDROcodone-aceta minophen (NORCO) 10-325 mg Tablet Take 1 Tablet by mouth every 4 hours as needed. Active acetaminophen (TYLENOL) 500 mg tablet Take 500 mg by mouth every 6 hours as needed. Active ascorbic acid (VITAMIN C ORAL) Take 1 Tablet by mouth daily. Active multivit-min/foli c/vit K/lycop (MEN'S 50 PLUS MULTIVITAMIN ORAL) Take 1 Tablet by mouth daily. Active docosahexaenoic acid/epa (FISH OIL ORAL) Take 1 Tablet by mouth daily. Active Active Problems No known active problems Family History Medical History Relation Name Comments Heart Disease Father heart attack Other Father tobacco use Cancer Paternal Grandfather bone High Cholesterol Paternal Grandfather Other Sister tobacco use Relation Name Status Comments Father Paternal Grandfather Sister Social History Tobacco Use Types Packs/Day Years Used Date Smoking Tobacco: Former Cigarettes Q uit: 1985 Smokeless Tobacco: Never Alcohol Use Standard Drinks/Week Comments Not Currently 0 (1 standard drink = 0.6 oz pur e alcohol) Sex and Gender Information Value Date Recorded Sex Assigned at Not on file Legal Sex Male 1:35 PM CDT Gender Identity Not on file Sexual Orientation Not on file Occupation Industry Job Start Date Job End Date Retired Not on file Not on file Not on file Last Filed Vital Signs Vital Sign Reading Time Taken Comments Blood Pressure 144/82 06/11/2020 11:16 AM CDT Pulse 73 06/11/2020 11:16 AM CDT Temperature 36.6 C (97.9 F) 06/11/2020 11:16 AM CDT Respiratory Rate - - Oxygen Saturation - - Inhaled Oxygen Concentration - - Weight 102.1 kg (225 lb) 06/11/2020 11:16 AM CDT Height 157.5 cm (5' 2 ) 06/11/2020 11:16 AM CDT Body Mass Index 41.15 06/11/2020 11:16 AM CDT Plan of Treatment Health Maintenance Due Date Last Done Comments DTAP/TDAP/TD VACCINES (1 - Tdap) 1971 COLORECTAL SCREENING 1997 Colorectal Cancer Screening 1997 FIT-DNA Q 3 years 1997 FIT/FOBT Q 1 year 1997 Flex Sig/CT Colonography Q 5 years 1997 ZOSTER VACCINE (1 of 2) 2002 PNEUMOCOCCAL VACCINE 50+ YEARS (2 of 2 - PCV) 10/04/20 19 10/04/2018 INFLUENZA VACCINE (#1) 2024 RSV VACCINE (60+ or ) (1 - 1-dose 75+ series) 2027 Insurance Care Teams Manager Sharepoint Relationship Specialty Start Date End Date Dante Camacho MD PCP - General Family Practice 06/11/20
--- OUTSIDE RECORDS SUMMARY | 2025-01-20 17:06 | XMS_ITS | Clinical Summary ---
Author Organization [facility] Address [address] [place] [address] Care Team Providers Care Sales Contracts Analyst Name Role Phone Dante Camacho MD Unavailable [phone] Dante Camacho MD Primary Care Provider [phone] Allergies No known active allergies Medications hydroCHLOROth [...] c, po solid 500 mg TabletPOdailyCurrent Medication 11/18/20 14 Active sildenafil, pulm.hyperten la nena, (REVATIO) [...] symptoms of DELANO. His DME supplier is [employer]. He will follow up here in 1 year. Assessment & Plan (06/05/2023 10:01 AM CDT): The patient continues to benefit from CPAP at 13 cm water pressure due to ongoing symptoms of DELANO. His DME supplier is [employer] but he has been buying supplies online. He will follow up here in 1 year. Assessment & Plan (05/30/2022 9:42 AM CDT): Patient continue to wear CPAP at 13 cm water pressure while sleeping. His DME is [employer]. Assessment & Plan (11/15/2021 11:09 AM CYLINDER PRESS OPERATOR): The patient stated that the pressure was too high, I have decreased the pressure to 13 cm water pressure. The patient denied need for supplies. DME company [employer]. Patient is benefitting from CPAP Hypersomnia 06/27/2021 [...] lung parenchyma. Coronary artery disease invo lving [place] coronary artery of [place] heart without angina pectoris 03/11/2019 History of coronary artery stent placement 03/11 Assessment & Plan (04/25/2021 3:32 PM CDT): Patient is following with [facility] tomorrow. Recent stress test did not show evidence of inducible ischemia. Varicose veins of lower extremity 02/05/2019 Assessment & Plan (10/02/2019 1:43 PM CYLINDER PRESS OPERATOR): Impression: Patient recover well status post right [...] split night protocol if necessary, no MSLT. Encounters Date Type Department Care Team Description 12/12/2024 1:00 PM CYLINDER PRESS OPERATOR Office Visit [facility] Cardiology [address] [place] [address] Dante Marrufo MD History of coronary artery stent placement (Primary Dx); Coronary artery disease involving [place] coronary artery of [place] heart without angina pectoris from Last 3 Months Immunizations Immunization Administration Dates Next Due Pneumococcal Polysaccharide PPV23 10/04/2018 Surgical History Surgery Date Site/Laterality Comments OTHER SURGICAL HISTORY R. hand repair OTHER SURGICAL HISTORY Toe OR CARDIAC STENT PLACEMENT 10/15/2009 - 10/14/2010 CATARACT EXTRACTION, BILATERAL 10/15/2010 - 10/14/2011 VEIN SURGERY 09/17/2019 Right excision great saphenous- 21 stab phlebectomy CATARACT EXTRACTION 2009 Medical History Medical History Date Comments Hx Other Medical Cataracts Hypercholesteremia Hypertension Kidney stone Arthritis 2016 Cataract 2009 Sleep apnea 2020 Peptic ulceration 2010 Family History Medical History Relation Name Comments Arthritis Father Hancock Meli Heart attack Father Hancock Meli Heart disease Father Hancock Meli COPD Mother Aracelis Dostone Lung disease Mother Aracelis Dostone Cancer Paternal Grandfather Blair Garrison Arthritis Paternal Grandmother Germania Garrison COPD Sister Diane White Heart disease Son Harman Garrison Relation Name Status Comments Father Hancock Meli Mother Aracelis Oliver Paternal Grandfather Blair Garrison Paternal Grandmother Germania Garrison Sister Diane White Son Harman Garrison Social History Tobacco Use Types Packs/Day Years [...] on file Legal Sex Male 1:08 AM CYLINDER PRESS OPERATOR Gender Identity Male 06/20/2021 8:16 PM CDT Sexual Orientation Straight 06/20/2021 8: 16 PM CDT Obstetrics History Last Filed Vital Signs Vital Sign Reading Time Taken Comments Blood Pressure 110/70 12/12/2024 1:03 PM CYLINDER PRESS OPERATOR Pulse 70 12/12/2024 1:03 PM CYLINDER PRESS OPERATOR Temperature 36.6 C (97.8 F) 06/05/2023 9:31 AM CDT Respiratory Rate 18 06/10/2024 9:38 AM CDT Oxygen Saturation 98% 12/12/2024 1:03 PM CYLINDER PRESS OPERATOR Inhaled Oxygen Concentration - - Weight 96.1 kg (211 lb 14.4 oz) 12/12/2024 1:03 PM CYLINDER PRESS OPERATOR Height 165.1 cm (5' 5 ) 12/12/2024 1:03 PM CYLINDER PRESS OPERATOR Body Mass Index 35.26 12/12/2024 1:03 PM CYLINDER PRESS OPERATOR Plan of Treatment Health Maintenance Due Date Last Done Comments Colon Cancer Screening-Colonoscopy 1952 Depression Screening 1952 Fall Risk Assessment 1952 Hepatitis C Screening 1952 DTaP/Tdap/Td Vaccine (1 - Tdap) 1963 Hepatitis B Screening 1970 Zoster Vaccine (1 of 2) 2002 Abdominal Aortic Aneurysm (AAA) Screen 2017 Well Visit 65+ 2017 Pneumococcal vaccine 65+ (2 of 2 - PCV) 10/04/2019 1 12/05/2017 Influenza Vaccine (#1) 2024 Procedures Procedure Name Priority Date/Time Associated Diagnosis Comments POCT LIPID PANEL Routine 12/12/2024 2:51 PM CYLINDER PRESS OPERATOR Coronary artery disease involving [place] coronary artery of [place] heart without angina pectoris from Last 3 Months Results * POCT lipid panel (12/12/2024 2:51 PM CYLINDER PRESS OPERATOR) Cholesterol, POC 121 mg/dL Comment:GLU = 137 HDL, POC <15 mg/dL Triglycerides, POC 265 mg/dL LDL Cholesterol POC 53 mg/dL Chol/HDL Ratio, POC N/A Non-HDL Cholesterol, POC N/A mg/dL Cholesterol Total, POC 121 mg/dL Capillary blood 12/12/2024 2 :51 PM CYLINDER PRESS OPERATOR us Dante Marrufo MD POINT OF CARE TEST ORDER SUSAN Final Result from Last 3 Months Insurance [facility] MDCR HMO REF [address] [place] [id number] Advance Directives For more information, please contact: [phone] Documents on File Type Date Recorded Patient Seat Cover Maker Expl anation ADVANCE DIRECTIVE 09/10/2019 12:00 AM [facility] OF OV[employer] UNLOADER FINANCIAL/MEDICAL Care Teams Sales Contracts Analyst Relationship Specialty Start Date End Date Dante Camacho MD PCP - General Family Medicine 09/17/19 Dante Camacho MD 03/28/19
[2025-01-20] MEDS: PANTOPRAZOLE SODIUM IV 40 MG VIAL IV PUSH (18:31)
[2025-01-20] MEDS: ONDANSETRON INJ 4 MG/2 ML VIAL IV PUSH ×2 (18:32→19:25)
[2025-01-20 18:45] LABS: Basophils Absolute Auto 0.1 K/mm3 (0.0-0.1); Basophils Percent Auto 0.2 % (0.2-1.2); Hematocrit 56.2 % (42.0-52.0); Hemoglobin 18.5 g/dL (14.0-18.0); Immature Granulocyte Absolute 0.25 K/mm3 (0.00-0.031); Immature Granulocyte Percent A 0.8 % (0-0.5); Lymphocytes Absolute Auto 1.46 K/mm3 (0.9-3.2); Lymphocytes Percent Auto 4.4 % (18.3-44.2); Mean Corpuscular HGB Conc 32.9 g/dl (32-36); Mean Corpuscular Hemoglobin 29.6 pg (26-34); Mean Corpuscular Volume 89.9 fl (80-100); Mean Platelet Volume 10.3 fl (7.4-10.4); Monocytes Percent Auto 6.1 % (2.6-8.5); Neutrophils Absolute Auto 29.1 K/mm3 (1.3-6.7); Neutrophils Percent Auto 88.5 % (45.5-73.1); Platelet Count Result 206 k/mm3 (150-375); Red Blood Count 6.25 M/mm3 (4.6-6.20); Red Cell Distribution Width 13.1 % (11.5-14.5); White Blood Count 32.9 K/mm3 (4.5-10.0)
[2025-01-20 19:00] LABS: Alanine Aminotransferase 255 U/L (6-50); Albumin Level 4.5 g/dL (3.5-5.1); Alkaline Phosphatase 69 U/L (38-126); Anion Gap 13 mmol/L (4-12); Aspartate Amino Transferase 491 U/L (17-59); Blood Urea Nitrogen 25 mg/dL (9-20); Calcium 9.5 mg/dL (8.4-10.2); Carbon Dioxide 26 mmol/L (22-30); Chloride 103 mmol/L (98-107); Estimated CRCL calculation 69 ml/min; Estimated Glomerular Filt Rate > 60; Glucose 227 mg/dL (65-110); Sodium 142 mmol/L (137-145)
[2025-01-20 19:19] VITALS: BP 141/81; PULSE 73; RESP 16; O2SAT 92
--- OUTSIDE RECORDS SUMMARY | 2025-01-20 19:22 | XMS_ITS | Clinical Summary ---
Author Organization [facility] Address [address] [place] [address] Phone Care Team Providers Care Marble Machine Tender Name Role Phone Dante Camacho MD Primary Care Provider [phone] Allergies No known active allergies Medications nebivoloL [...] 1-dose 75+ series) 2027 Insurance Care Teams Marble Machine Tender Relationship Specialty Start Date End Date Dante Camacho MD PCP - General Family Practice 06/11/20
--- OUTSIDE RECORDS SUMMARY | 2025-01-20 19:22 | XMS_ITS | Clinical Summary ---
Author Organization [facility] Address [address] [place] [address] Care Team Providers Care Fabricating Machine Operator Name Role Phone Dante Camacho MD Unavailable [phone] Dante Camacho MD Primary Care Provider [phone] Allergies No known active allergies Medications hydroCHLOROth [...] symptoms of DELANO. His DME supplier is [employer]. He will follow up here in 1 year. Assessment & Plan (06/05/2023 10:01 AM CDT): The patient continues to benefit from CPAP at 13 cm water pressure due to ongoing symptoms of DELANO. His DME supplier is [employer] but he has been buying supplies online. He will follow up here in 1 year. Assessment & Plan (05/30/2022 9:42 AM CDT): Patient continue to wear CPAP at 13 cm water pressure while sleeping. His DME is [employer]. Assessment & Plan (11/15/2021 11:09 AM AUTOMATIC HEAD SAWYER): The patient stated that the pressure was too high, I have decreased the pressure to 13 cm water pressure. The patient denied need for supplies. DME company [employer]. Patient is benefitting from CPAP Hypersomnia 06/27/2021 [...] lung parenchyma. Coronary artery disease invo lving [place] coronary artery of [place] heart without angina pectoris 03/11/2019 History of coronary artery stent placement 03/11 Assessment & Plan (04/25/2021 3:32 PM CDT): Patient is following with certified orthotist practice manager tomorrow. Recent stress test did not show evidence of inducible ischemia. Varicose veins of lower extremity 02/05/2019 Assessment & Plan (10/02/2019 1:43 PM AUTOMATIC HEAD SAWYER): Impression: Patient recover well status post right [...] Department Care Team Description 12/12/2024 1:00 PM AUTOMATIC HEAD SAWYER Office Visit [facility] [address] [place] [address] Dante Marrufo MD History of coronary artery stent placement (Primary Dx); Coronary artery disease involving [place] coronary artery of [place] heart without angina pectoris from Last 3 [...] Medical History Relation Name Comments Arthritis Father Melville Meli Heart attack Father Melville Meli Heart disease Father Melville Meli COPD Mother Aracelis Dostone Lung disease Mother Aracelis Dostone Cancer Paternal Grandfather Blair Garrison Arthritis Paternal Grandmother Germania Garrison COPD Sister Diane White Heart disease Son Harman Garrison Relation Name Status Comments Father Melville Meli Mother Aracelis Oliver Paternal Grandfather Blair [...] on file Legal Sex Male 1:08 AM AUTOMATIC HEAD SAWYER Gender Identity Male 06/20/2021 8:16 PM CDT Sexual Orientation Straight 06/20/2021 8: 16 PM CDT Obstetrics History Last Filed Vital Signs Vital Sign Reading Time Taken Comments Blood Pressure 110/70 12/12/2024 1:03 PM AUTOMATIC HEAD SAWYER Pulse 70 12/12/2024 1:03 PM AUTOMATIC HEAD SAWYER Temperature 36.6 C (97.8 F) 06/05/2023 9:31 AM CDT Respiratory Rate 18 06/10/2024 9:38 AM CDT Oxygen Saturation 98% 12/12/2024 1:03 PM AUTOMATIC HEAD SAWYER Inhaled Oxygen Concentration - - Weight 96.1 kg (211 lb 14.4 oz) 12/12/2024 1:03 PM AUTOMATIC HEAD SAWYER Height 165.1 cm (5' 5 ) 12/12/2024 1:03 PM AUTOMATIC HEAD SAWYER Body Mass Index 35.26 12/12/2024 1:03 PM AUTOMATIC HEAD SAWYER Plan of Treatment Health Maintenance Due Date [...] POCT LIPID PANEL Routine 12/12/2024 2:51 PM AUTOMATIC HEAD SAWYER Coronary artery disease involving [place] coronary artery of [place] heart without angina pectoris from Last 3 Months Results * POCT lipid panel (12/12/2024 2:51 PM AUTOMATIC HEAD SAWYER) Cholesterol, POC 121 mg/dL Comment:GLU = 137 HDL, POC <15 mg/dL Triglycerides, POC 265 mg/dL LDL Cholesterol POC 53 mg/dL Chol/HDL Ratio, POC N/A Non-HDL Cholesterol, POC N/A mg/dL Cholesterol Total, POC 121 mg/dL Capillary blood 12/12/2024 2 :51 PM AUTOMATIC HEAD SAWYER us Dante Marrufo MD POINT OF CARE TEST ORDER SUSAN Final Result from Last 3 Months Insurance [facility] MD[facility] HMO REF [facility] Address: [address] [address] [place] [address] [facility] Address: [address] [address] [place] [address] [address] [place] [phone] Advance Directives For more information, please contact: [phone] Documents on File Type Date Recorded Patient Knock Up Assembler Expl anation ADVANCE DIRECTIVE 09/10/2019 12:00 AM [facility] OF ELEVATOR ERECTOR HELPER FINANCIAL/MEDICAL Care Teams Fabricating Machine Operator Relationship Specialty Start Date End Date Dante Camacho MD PCP - General Family Medicine 09/17/19 Dante Camacho MD 03/28/19
--- OUTSIDE RECORDS SUMMARY | 2025-01-20 19:22 | XMS_ITS | Referral Summary ---
Author Organization [facility] Address [facility] [place] [address] Care Team Providers Care Financial Aid Administrator Name Role Phone Dante Camacho MD Unavailable [phone] Dante Camacho MD Primary Care Provider [phone] Encounters Date Type Department Care Team Description 12/12/2024 1:00 PM SHOVEL MECHANIC Office Visit [facility] Cardiology [address] [place] [address] Dante Marruof MD History of coronary artery stent placement (Primary Dx); Coronary artery disease involving [place] coronary artery of [place] heart without angina pectoris from Last 3 [...] symptoms of DELANO. His DME supplier is [employer]. He will follow up here in 1 [...] water pressure while sleeping. His DME is [employer]. Assessment & Plan (11/15/2021 11:09 AM SHOVEL MECHANIC): The patient stated that the pressure was [...] lung parenchyma. Coronary artery disease invo lving [place] coronary artery of [place] heart without angina pectoris 03/11/2019 History of coronary artery stent placement 03/11 Assessment & Plan (04/25/2021 3:32 PM CDT): Patient is following with intelligent systems engineer tomorrow. Recent stress test did not show evidence of inducible ischemia. Varicose veins of lower extremity 02/05/2019 Assessment & Plan (10/02/2019 1:43 PM SHOVEL MECHANIC): Impression: Patient recover well status post right [...] on file Legal Sex Male 1:08 AM SHOVEL MECHANIC Gender Identity Male 06/20/2021 8:16 PM CDT Sexual Orientation Straight 06/20/2021 8: 16 PM CDT Last Filed Vital Signs Vital Sign Reading Time Taken Comments Blood Pressure 110/70 12/12/2024 1:03 PM SHOVEL MECHANIC Pulse 70 12/12/2024 1:03 PM SHOVEL MECHANIC Temperature 36.6 C (97.8 F) 06/05/2023 9:31 AM CDT Respiratory Rate 18 06/10/2024 9:38 AM CDT Oxygen Saturation 98% 12/12/2024 1:03 PM SHOVEL MECHANIC Inhaled Oxygen Concentration - - Weight 96.1 kg (211 lb 14.4 oz) 12/12/2024 1:03 PM SHOVEL MECHANIC Height 165.1 cm (5' 5 ) 12/12/2024 1:03 PM SHOVEL MECHANIC Body Mass Index 35.26 12/12/2024 1:03 PM SHOVEL MECHANIC Plan of Treatment Not on file Procedures Procedure Name Priority Date/Time Associated Diagnosis Comments POCT LIPID PANEL Routine 12/12/2024 2:51 PM SHOVEL MECHANIC Coronary artery disease involving [place] coronary artery of [place] heart without angina pectoris from Last 3 Months Results * POCT lipid panel (12/12/2024 2:51 PM SHOVEL MECHANIC) Cholesterol, POC 121 mg/dL Comment:GLU = 137 HDL, POC <15 mg/dL Triglycerides, POC 265 mg/dL LDL Cholesterol POC 53 mg/dL Chol/HDL Ratio, POC N/A Non-HDL Cholesterol, POC N/A mg/dL Cholesterol Total, POC 121 mg/dL Capillary blood 12/12/2024 2 :51 PM SHOVEL MECHANIC us Dante Marrufo MD POINT OF CARE TEST ORDER SUSAN Final Result from Last [address] [facility] MDCR HMO REF [facility] MEDICARE ADVANTAGE Advance Directives For more information, please contact: [phone] Documents on File Type Date Recorded Patient Hospital Medical Biller Expl anation ADVANCE DIRECTIVE 09/10/2019 12:00 AM [facility] OF AML ANALYST FINANCIAL/MEDICAL Care Teams Financial Aid Administrator Relationship Specialty Start Date End Date Dante Camacho MD PCP - General Family Medicine 09/17/19 Dante Camacho MD 03/28/19
[2025-01-20] MEDS: MORPHINE SULFATE (*CRX) 4 MG/ML INJ IV PUSH (19:26)
[2025-01-20 19:42] LABS: Lactic Acid Reflex 2.5 mmol/L (0.7-2.0)
[2025-01-20 20:26] VITALS: O2SAT 84; O2SAT 94
[2025-01-20 20:29] LABS: Lipase 29838 U/L (23-300)
[2025-01-20 20:33] LABS: Add Urine Microscopic? YES; Appearance Urine Clear (Clear); Bacteria Urine None Seen /hpf; Bilirubin Urine Negative (Negative); Blood Urine 2+ (Negative); Color Urine Yellow (Yellow); Glucose Urine UA Negative (Negative); Ketones Urine Trace mg/dL (Negative); Leukocyte Esterase Ur Trace LEU/UL (Negative); Need Manual Microscopic Reviewed; Nitrate Urine Negative (Negative); Protein Urine 1+ mg/dL (Negative); RBC Urine 51-100 /hpf (0-2); Specific Grav Ur 1.017 (1.001-1.035); Squamous Epithelial Cell Urine None Seen /hpf (Few); WBC Urine 0-5 /hpf (0-3)
[2025-01-20 21:32] LABS: Reflex Lactic Acid Yes or No Add Lactic
[2025-01-20] MEDS: SODIUM CHLORIDE 0.9% IV 1,000 ML 999 ML IV CONT (23:13)
[2025-01-20 23:16] VITALS: BP 143/91; PULSE 88; RESP 19; O2SAT 94
--- NOTE | 2025-01-20 23:17 | PC.NURSE ---
Upon entering pt room, pt satting 86% with nasal canula in nose. pt was attached to oxygen on stretcher which had ran out. pt placed on wall O2 3L and sats [place] to 94%. ER charge Sol made aware. Outstanding cultures and lactic acid obtained at this time. Initiated fluid bolus and ordered ABx.
[2025-01-20 23:27] LABS: Lactic Acid 2.1 mmol/L (0.7-2.0)
[2025-01-21] MEDS: MORPHINE SULFATE (*CRX) 4 MG/ML INJ IV PUSH (00:01)
[2025-01-21] MEDS: metroNIDAZOLE 500 MG/ISO 100ML 500 MG/100 ML BAG 100 MG IVPB (00:01)
[2025-01-21 02:04] VITALS: BP 185/92; PULSE 87; RESP 17; O2SAT 94
[2025-01-21] MEDS: ONDANSETRON INJ 4 MG/2 ML VIAL IV PUSH (03:08)
[2025-01-21 03:46] VITALS: PULSE 95
[2025-01-21] MEDS: NEBIVOLOL HCL 5 MG TABLET 20 MG PO (03:46)
[2025-01-21 04:58] VITALS: BP 137/95; PULSE 85; RESP 16; O2SAT 95
--- NOTE | 2025-01-21 05:44 | PC.NURSE ---
Bed placement 2615-A at [facility]. Report called to ORLANDO Barbsoa. ETA for XFR is 0615 [facility]. Paperwork complete. Pt and visitor made aware.
[2025-01-21 05:45] VITALS: BP 153/82; PULSE 84; RESP 16; O2SAT 95
[2025-01-21 06:01] VITALS: O2SAT 95
== END 2025-01-21 06:53 | disposition short-term general hospital (02) ==
PROVIDERS: Physician Assistant; Emergency Provider Preventive Medicine Aerospace Medicine; PCP Family Medicine
DX: K85.90 Acute pancreatitis without necrosis or infection, unspecified (principal); I10 Essential (primary) hypertension; E78.5 Hyperlipidemia, unspecified; Z87.442 Personal history of urinary calculi; G47.30 Sleep apnea, unspecified; I25.10 Atherosclerotic heart disease of native coronary artery without angina pectoris
CPT/HCPCS: 36415; 74177; 76705; 80053; 81001; 83605; 83690; 85025; 87040; 96365; 96368; 96375; 96376; 99285; A9270; J0696; J1836; J2270; J2405; J2470; J7030; Q9967

== ENCOUNTER 2025-06-09 08:28 | Emergency (ER) | payer MEDICARE, SELFPAY ==
[2025-06-09] VITALS (58 sets, daily range): BP systolic 64–101; BP diastolic 31–64; PULSE 93–141; RESP 24–54; TEMP 38.9–41.1; O2SAT 90–99
--- NOTE | 2025-06-09 | ECHO_ITS ---
Patient Info Name: Derek Garrison Age: 75 years : 1950 Gender: Male Ht: 70 in Wt: 196 lbs BSA: 2.11 m2 HR: 110 bpm BP: 76 / 53 mmHg Heart Rhythm: Sinus Rhythm Technical Quality: Fair Exam Date: 06/09/2025 10:26 AM Patient Status: E Admit Date: 06/09/2025 Exam Type: CA echo dop color flow w con Complete two-dimensional, color flow and Doppler transthoracic echocardiogram is performed with contrast to opacify the left ventricle and to improve the deliniation of the left ventricle endocardial borders. Staff Referring Physician: Mark Yan Director Financial Systems: Marcy Lambert Attending Provider: Mark Yan Contrast/Agitated Saline Contrast/Ag. Saline: Definity Amount: 2.00 ml Administered By: Marcy Lambert Summary 1. Mild left ventricular enlargement with moderate systolic dysfunction, bakari akinesis of the apex and anteroapical segment. 2. Right ventricular dilation with RV systolic dysfunction. 3. Mild mitral and tricuspid regurgitation. Left Ventricle Left ventricular chamber dimension is mildly enlarged. Left ventricular systolic function is moderately reduced, estimated at 35-40. The left ventricular diastolic function is grade II diastolic dysfunction. Right Ventricle Right ventricular chamber dimension is moderately enlarged. Right ventricular systolic function is reduced. Aortic Valve The aortic valve is normal. Pulmonic Valve The pulmonic valve is not well visualized. Mitral Valve The mitral valve has normal leaflets. There is mild mitral valve regurgitation. Tricuspid Valve The tricuspid valve leaflets are normal. There is mild tricuspid valve regurgitation. Mild pulmonary hypertension, estimated pulmonary arterial systolic pressure is 44 mmHg. Pericardium/Pleural The pericardium appears normal. Aorta The aortic root size at the sinus of Valsalva is normal. Left Ventricular Outflow Tract Name Value Normal LVOT 2D LVOT Diameter 2.0 cm LVOT Doppler LVOT Peak Velocity 112 cm/s LVOT Peak Gradient 5 mmHg LVOT Mean Gradient 3 mmHg LVOT VTI 23 cm LVOT Stroke Volume 70 ml LVOT CO 7.7 l/min LVOT CI 3.7 l/min/m2 Pulmonic Valve Name Value Normal RVOT Doppler RVOT Peak Velocity 68 cm/s RVOT Peak Gradient 2 mmHg PV Doppler PV Peak Velocity 96 cm/s PV Peak Gradient 4 mmHg Mitral Valve Name Value Normal MV Regurgitation Doppler MR Peak Gradient 73 mmHg MV Diastolic Function MV E Peak Velocity 61 cm/s MV A Peak Velocity 79 cm/s MV E/A 0.8 MV Decel Time (PW) 152 ms MV Annular TDI MV E/e' (Septal) 11.2 MV E/e' (Lateral) 6.8 MV E/e' (Average) 9.0 Tricuspid Valve Name Value Normal TV Regurgitation Doppler TR Peak Velocity 341 cm/s TR Peak Gradient 44 mmHg Estimated PAP/RSVP PA Systolic Pressure 44 mmHg <36 Aortic Valve Name Value Normal AV Doppler AV Peak Velocity 137 cm/s AV Peak Gradient 7 mmHg AV Area (Cont Eq Vadim) 2.5 cm2 AV DI (Vadim) 0.82 AV Regurgitation 2D LVOT Area 3.0 cm2 Ventricles Name Value Normal LV Dimensions 2D/MM IVS Diastolic Thickness (2D) 1.2 cm 0.6-1.0 LVID Diastole (2D) 3.8 cm 4.2-5.8 LVIW Diastolic Thickness (2D) 0.9 cm 0.6-1.0 LVID Systole (2D) 2.8 cm 2.5-4.0 LVOT Diameter 2.0 cm LV Mass (2D Cubed) 129.44 g 88.00-224.00 LV Mass Index (2D Cubed) 61 g/m2 49-115 Relative Wall Thickness (2D) 0.50 <=0.42 LV Fractional Shortening/Ejection Fraction 2D/MM LV Fractional Shortening (2D) 25 % 25-43 LV EF (2D Teichholz) 50 % LV Diastolic Volume (4C MOD) 116 ml LV EF (4C MOD) 51 % LV Diastolic Volume (2C MOD) 74 ml LV EF (2C MOD) 33 % LV Diastolic Volume (BP MOD) 94 ml 62-150 LV Diastolic Volume Index (BP MOD) 44 ml/m2 34-74 LV Systolic Volume (BP MOD) 55 ml 21-61 LV Systolic Volume Index (BP MOD) 26 ml/m2 11-31 LV EF (BP MOD) 41 % 52-72 LV Diastolic Length (4C) 8.6 cm LV Systolic Length (4C) 7.5 cm LV Stroke Volume (4C MOD) 59 ml Atria Name Value Normal LA Dimensions LA Volume (4C A-L) 45 ml LA Volume (BP A-L) 50 ml RA Dimensions RA Systolic Major Burke Length (4C) 5.2 cm 2.1-2.7 RA Area (4C) 15.5 cm2 <=18.0 Report Signatures
--- NOTE | ~2025-06-09 | CT_ITS ---
EXAMINATION: CTA chest abdomen pelvis DATE: 06/09/2025 10:36 CDT INDICATION: Ischemic colitis. TECHNIQUE: Computed tomographic angiography (CTA) of the chest, abdomen, and pelvis was performed without and with 100 mL Omnipaque-350 intravenous contrast. The dose-length product was 1643.21 mGy-cm. Maximum intensity projection 3D- reconstructions of the aorta and other arteries were constructed by the technologist on a separate workstation. COMPARISON: None. FINDINGS: CHEST CTA: No evidence for aortic aneurysm or dissection. No thoracic lymphadenopathy. No significant pleural or pericardial effusion. Evaluation of lung parenchyma limited due to motion artifact. There is right lower lobe consolidation which may represent atelectasis or pneumonia. No endobronchial lesions. There is dependent atelectasis in the left lower lobe. No suspicious pulmonary nodules or masses. ABDOMEN AND PELVIS CTA: There is possible subtle thrombus in the superior mesenteric artery which is significantly narrowed due to atherosclerotic plaque. There is severe stenosis of the right renal artery and moderate stenosis of the left renal artery. The YASMINE is patent. There is Whiting catheter in the bladder. There is moderate fecal loading of the rectum and distal colon. No obstruction. No lymphadenopathy. Fatty infiltration of the liver. The spleen, pancreas and adrenal glands are unremarkable. There are bilateral renal cysts. Left renal cyst is peripherally calcified, although unchanged from prior studies. There is a stent in the pancreatic duct. No focal bowel thickening or hypoperfusion of the bowel to suggest ischemia. There is osteoarthritis of the hips. There is moderate thoracic and lumbar spondylosis. There is distal gastric wall thickening as well as thickening of the duodenum. IMPRESSION: 1. 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 No focal abnormal small bowel wall thickening or abnormal enhancement to suggest hypoperfusion. 2: Severe stenosis of the right renal and moderate stenosis of the left renal arteries. 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 4: Abnormal thickening of the distal gastric wall and duodenum. Consider infectious/inflammatory etiologies as well as ischemia. 5: Dependent atelectasis. Focal consolidation right lower lobe is present. Cannot exclude superimposed pneumonia. Reviewed, dictated and finalized at location O. IMPRESSION: 1. 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 No focal abnormal small bowel wal l thickening or abnormal enhancement to suggest hypoperfusion. 2: Severe stenosis of the right renal and moderate stenosis of the left renal arteries. 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 4: Abnormal thickening of the distal gastric wall and duodenum. Consider infect ious/inflammatory etiologies as well as ischemia. 5: Dependent atelectasis. Focal consolidation right lower lobe is present. Can not exclude superimposed pneumonia.
--- NOTE | ~2025-06-09 | XR_ITS ---
EXAMINATION: XR chest port-a-cath/central 06/09/2025 11:25 INDICATION: Central line placement TECHNIQUE:A single AP semiupright portable frontal image of the chest was obtained COMPARISON: 05/08/2024 FINDINGS: Moderate elevation of the right hemidiaphragm, unchanged. Lung volumes are low. No pneumothorax. No pleural effusion. Moderate sized patchy opacities scattered throughout the left lung. Small patchy opacities in the right lung. Cardiomediastinal silhouette is enlarged, unchanged. There is a left-sided central venous catheter with its tip at the junction of the left brachiocephalic vein and superior vena cava IMPRESSION: 1: There is a left-sided central venous catheter with its tip at the junction of the left brachiocephalic vein and superior vena cava. Correlate clinically. 2. Moderate-sized patchy opacities scattered throughout the left lung. Differential includes but is not limited to edema or pneumonia. Recommend follow-up to resolution to exclude an underlying pulmonary nodule or mass. Consider a chest CT. 3. Small patchy opacities in the right lung. Reviewed, dictated and finalized at location Q. IMPRESSION: 1: There is a left-sided central venous catheter with its tip at the junction o f the left brachiocephalic vein and superior vena cava. Correlate clinically. 2. Moderate-sized patchy opacities scattered throughout the left lung. Differen tial includes but is not limited to edema or pneumonia. Recommend follow-up to resolution to exclude an underlying pulmonary nodule or mass. Consider a chest CT. 3. Small patchy opacities in the right lung.
--- NOTE | ~2025-06-09 | CT_ITS ---
EXAMINATION: CT brain estelle bowen, 06/09/2025 10:00 CDT HISTORY: AMS COMPARISON: No comparisons available. Technique: Axial images obtained of the brain without contrast. One or more of the following dose reduction techniques were used: automated exposure control, adjustment of the mA and/or kV according to patient size, use of iterative reconstruction technique. Findings: No acute infarct or parenchymal hemorrhage. No abnormal mass or mass effect. No midline shift. No extra-axial fluid collections. No hydrocephalus. Mastoid air cells unremarkable. Sinuses and orbits unremarkable. No acute fracture. No significant facial or scalp soft tissue swelling evident. No radiopaque foreign body is seen. Impression: 1.No acute intracranial abnormality. Reviewed, dictated and finalized at location A. Impression: 1.No acute intracranial abnormality.
--- NOTE | 2025-06-09 08:31 | ECG_ITS ---
Test Date: 2025-06-09 08:35:03 Measurements Intervals [place] Rate: 136 P: 0 OR: 0 QRS: -44 QRSD: 104 T: 61 QT: 277 QTc: 418 Interpretive Statements SINUS TACHYCARDIA LEFT AXIS DEVIATION CANNOT R/O SEPTAL INFARCT, AGE INDETERMINATE BASELINE ARTIFACT- I, II, III, AVR, AVL, AVF, V1-V2 ABNORMAL ECG Compared to ECG 04/29/2024 22:14:25 HEART RATE HAS INCREASED Electronically Signed On 06-09-2025 08:49:26 CDT by Walt Morgan D.O.
--- NOTE | 2025-06-09 08:39 | ED_ITS ---
HPI - Arrhythmia/Palpitations General Chief Complaint: Arrhythmia/Palpitations Stated Complaint: SVT Time Seen by Provider: 06/09/25 08:30 History of Present Illness HPI narrative: This is a 75-year-old male who presents to the ED via EMS for altered mental status possibly. Per EMS, he arrived, patient was relatively unresponsive on the couch and he was reportedly found to be in SVT. He was given adenosine x2 and cardioverted x2 to sinus tachycardia. His mental status did improve after that. Patient's history is otherwise limited at this time as patient moans to most questions. Per EMS, patient did have a cholecystectomy 2 weeks ago. Related Data Allergies Allergy/AdvReac Type Severity Reaction Status Date / Time niacin Allergy Unknown Unknown Verified 06/09/25 12:22 NSAIDS (Non-Steroidal Allergy Unknown Anemia Verified 06/09/25 12:22 Anti-Inflamma aspirin AdvReac Unknown gi bleed Verified 06/09/25 12:22 Review of Systems 2 Review of Systems: ROS unobtainable: Yes unobtainable due to medical condition PMFSH Past Medical History Medical History Leukocytosis Rectal bleeding Hypertension Hyperlipidemia Kidney stones History of blood transfusion Stomach ulcer Sleep apnea with use of continuous positive airway pressure (CPAP) Angina pectoris, unstable Obesity (BMI 30-39.9) Erectile dysfunction Polycythemia Lumbar spinal stenosis Abdominal aortic atherosclerosis Excess ear wax Surgical History Surgical History History of laparoscopic cholecystectomy Robotic assisted diagnostic laparoscopy with placement of cholecystostomy tube and removal of gallstone 05/06/24 Hx of heart artery stent History of toe surgery Status post phlebectomy Family History Family History Other Cancer Family history of cardiovascular disease Family history of elevated blood lipids Hypertension Social History Social History Smoking packs per day: 1 Smoking cigarettes per day: 20.0 Years smoked: 15 Smoking pack-years: 15.00 Smoking status: Former smoker Tobacco type: cigarettes Smoking end date: 05/02/85 Alcohol intake: never Drinks per week: 1 Substance use: never Substance use type: does not use Do You Feel Safe in your Home?: Yes Lack of Transportation: No Lack of Food: Never True Current Housing: I Have Housing Concerned About Future Housing: No Difficulty Paying Gas/Electric Bills: No Difficulty Paying for Meds: No Currently Unemployed: No Education: Associate Degree Difficulty w/ Childcare or Family Care: No Living arrangements: with friend(s) Spiritual care concerns: No Exam 2 Narrative: APPEARANCE: Ill-appearing, moans answers EYES: EOMI HEENT: Normocephalic, atraumatic, mucous membranes dry RESPIRATORY: Tachypneic, breath sounds clear bilaterally CARDIOVASCULAR: Tachycardic, 1+ distal pulses ABDOMINAL: Soft, nontender, nondistended, no rebound or guarding. Laparoscopic incisions clean/dry/intact MUSCULOSKELETAl: Moves all extremities. Cyanotic lips NEURO: Awake, tracks to voice and intermittently moans answers. Following commands, speech normal, no focal deficits SKIN:: Pale, warm to touch PSYCHIATRIC: Normal affect/mood, Course Vital Signs Vital signs: Vital Signs Temperature 106.0 F H 06/09/25 08:28 Pulse Rate 141 H 06/09/25 08:28 Respiratory Rate 41 H 06/09/25 08:28 Blood Pressure 101/63 06/09/25 08:28 Pulse Oximetry 90 06/09/25 08:28 Oxygen Delivery Room Air 06/09/25 08:28 Temperature 102.1 F H 06/09/25 13:26 Pulse Rate 96 06/09/25 13:26 Respiratory Rate 35 H 06/09/25 13:26 Blood Pressure 80/55 L 06/09/25 13:26 Pulse Oximetry 95 06/09/25 13:26 Oxygen Delivery Nasal Cannula 06/09/25 10:07 Oxygen Flow Rate 2 06/09/25 10:07 Procedures Central Line Placement Left IJ: Central Line Date: 06/09/25 Central Line Time: 11:15 The patient/family/POA understand(s) and acknowledge(s) the need to proceed with central venous catheter insertion as an important element of the patient's clinical management.: Yes Time Out Performed: Yes Patient Placed on Monitor/Pulse Ox: Yes Max. Sterile Barrier Technique: Caps, large sterile sheet and hand hygiene Central Line Prep: 2% chlorhexidine scrub and sterile drapes applied Technique: US-Guided Local Anesthetic: lidocaine 1% Amount of anesthesia used (mL): 5 Ultrasound Used for Placement: Yes Central Line Lumen Inserted: triple Post Procedure: sutured in place Post Procedure X-Ray: tip of catheter in good position Patient Tolerated Procedure: well and no complications Complications: none MDM - Arrhythmia/Palpitations MDM Narrative Medical decision making narrative: 75-year-old male who presented to the ED with altered mental status and possible SVT. On initial evaluation, there GCS 11-12 and borderline blood pressures 101/63. Tachycardia at 9:41 p.m. did appear to be in sinus tachycardia. Reviewed EMS rhythm strip, suspect the patient was only in sinus tachycardia. Patient very ill-appearing. Rectal temperature 106?, placed on cooling measures and given rectal Tylenol. Initial EKG shows sinus tachycardia with borderline ST elevation so repeat EKG was obtained. Repeat EKG showed developing ST elevations with ST depressions. STEMI was activated and I discussed case with Dr. Alfredo, he reviewed the patient's documentation and EKG suspect his EKG changes are due to global ischemia and sepsis rather than primary cardiac and possibly due to likely unnecessary cardioversion. His blood pressures worsened to maps in the 40s to 50s. He was given 30 cc/kg NS with improvement was started norepinephrine. Initial lactic acid returned at 6.1. Highly suspected a intra- abdominal abscess given his postop status from a week ago especially given the complicated procedure. Also considered mesenteric ischemia. He had a leukocytosis of 15. Initial troponin slightly elevated 0.918. Repeat troponin 10. Central line was placed, refer to procedure note above, patient procedure well. CT abdomen/pelvis showed significant mesenteric ischemia and possible thrombus within the SMA. He he will require transfer for possible vascular surgery verses IR intervention. I discussed the case with Dr. Springer, general surgery, at [facility] who will accept the patient in transfer to the ICU. Patient was transferred on 3 pressors in on a heparin drip but mentation did improve significantly. Patient and family were agreeable to this plan. CRITICAL CARE Indication: Septic shock Time type: intermittent I provided a total of 60 minutes of critical care excluding separately billable procedures. This includes time w/ EMS, initial bedside evaluation, reviewing old records, review of testing done while under my care, discussion w/ the family, nurses, transportation consultant and guiding the patient?s care while in the emergency department. Differential Diagnosis Differential diagnosis: Likely other (sepsis, post op infection, abscess, mesenteric ischemia) Medical Records Attestation: I reviewed the patient's medical records. Lab Data Attestation: I reviewed the patient's lab results. 06/09/25 08:38 06/09/25 08:38 Labs: Lab Results 06/09/25 06/09/25 06/09/25 Range/Units 08:38 08:54 09:41 WBC 15.1 H (4.5-10.0) K/mm3 RBC 4.97 (4.6-6.20) M/mm3 Hgb 14.4 D (14.0-18.0) g/dL Hct 44.4 (42.0-52.0) % MCV 89.3 (80-100) fl MCH 29.0 (26-34) pg MCHC 32.4 (32-36) g/dl RDW 13.7 (11.5-14.5) % Plt Count 218 (150-375) k/mm3 MPV 9.9 (7.4-10.4) fl Immature Gran % (Auto) Not Reportable Neut % (Auto) Not Reportable Lymph % (Auto) Not Reportable [place] % (Auto) Not Reportable Eos % (Auto) Not Reportable Baso % (Auto) Not Reportable Lymph # (Auto) Not Reportable [place] # (Auto) Not Reportable Eos # (Auto) Not Reportable Baso # (Auto) Not Reportable Abs Immat Gran (auto) Not Reportable Absolute Neuts (auto) Not Reportable Absolute Nucleated RBC Not Reportable Total Counted 100 Neutrophils % (Manual) 79 H (46-73) % Band Neutrophils % 12 H (0-6) % Lymphocytes % (Manual) 8 L (18-44) % Monocytes % (Manual) 1 L (3-9) % Nucleated RBC % Not Reportable Abs Neuts (Manual) 13.74 H (1.3-6.7) K/mm3 Abs Lymphs (Manual) 1.20 (1.1-4.5) K/mm3 Abs Monocytes (Manual) 0.15 (0.1-0.90) K/mm3 Platelet Estimate Adequate (Adequate) Schistocytes None seen PT 16.9 H (11.1-14.7) Seconds INR 1.4 APTT 33.7 (22.3-36.8) Seconds Sodium 140 (137-145) mmol/L Potassium 3.1 L (3.4-5.0) mmol/L Chloride 103 (98-107) mmol/L Carbon Dioxide 22 (22-30) mmol/L Anion Gap 15 H (4-12) mmol/L BUN 36 H D (9-20) mg/dL Creatinine 2.13 H (0.7-1.3) mg/dL Estim Creat Clear Calc 29 ml/min Estimated GFR 31 L (59 - ) Glucose 217 H (65-110) mg/dL Lactic Acid 6.1 H* (0.7-2.0) mmol/L Calcium 9.5 (8.4-10.2) mg/dL Total Bilirubin 2.4 H (0.2-1.3) mg/dL AST 69 H (17-59) U/L ALT 40 (6-50) U/L Alkaline Phosphatase 177 H (38-126) U/L Troponin I Cancelled 0.918 H* C-Reactive Protein > 9.0 H (<1.0) mg/dL Total Protein 6.5 (6.3-8.2) g/dL Albumin 3.6 (3.5-5.1) g/dL Lipase 18 L (23-300) U/L Urine Color Yellow (Yellow) Urine Appearance Clear (Clear) Urine pH 5.5 (5.0-9.0) Ur Specific [place] 1.015 (1.001-1.035) Urine Protein 1+ H (Negative) mg/dL Urine Glucose (UA) Negative (Negative) mg/dL Urine Ketones Negative (Negative) mg/dL Ur Blood (Man) 2+ H (Negative) Urine Nitrate Positive H (Negative) Urine Bilirubin Negative (Negative) Urine Urobilinogen 0.2 (<2.0) mg/dL Add Ur Microanalysis Reviewed Leukocyte Esterase Rfl 1+ H (Negative) EDWIN/UL Urine RBC 3-5 H (0-2) /hpf Urine WBC 6-10 H (0-3) /hpf Ur Squamous Epith Cells None seen (Few) /hpf Urine Bacteria None seen /hpf Urine Casts 0-2 Nasal MRSA (PCR) (NOT DETECTE) 06/09/25 06/09/25 06/09/25 Range/Units 10:10 11:43 11:45 WBC (4.5-10.0) K/mm3 RBC (4.6-6.20) M/mm3 Hgb (14.0-18.0) g/dL Hct (42.0-52.0) % MCV (80-100) fl MCH (26-34) pg MCHC (32-36) g/dl RDW (11.5-14.5) % Plt Count (150-375) k/mm3 MPV (7.4-10.4) fl Immature Gran % (Auto) Neut % (Auto) Lymph % (Auto) [place] % (Auto) Eos % (Auto) Baso % (Auto) Lymph # (Auto) [place] # (Auto) Eos # (Auto) Baso # (Auto) Abs Immat Gran (auto) Absolute Neuts (auto) Absolute Nucleated RBC Total Counted Neutrophils % (Manual) (46-73) % Band Neutrophils % (0-6) % Lymphocytes % (Manual) (18-44) % Monocytes % (Manual) (3-9) % Nucleated RBC % Abs Neuts (Manual) (1.3-6.7) K/mm3 Abs Lymphs (Manual) (1.1-4.5) K/mm3 Abs Monocytes (Manual) (0.1-0.90) K/mm3 Platelet Estimate (Adequate) Schistocytes PT (11.1-14.7) Seconds INR APTT Cancelled (22.3-36.8) Seconds Sodium (137-145) mmol/L Potassium (3.4-5.0) mmol/L Chloride (98-107) mmol/L Carbon Dioxide (22-30) mmol/L Anion Gap (4-12) mmol/L BUN (9-20) mg/dL Creatinine (0.7-1.3) mg/dL Estim Creat Clear Calc ml/min Estimated GFR (59 - ) Glucose (65-110) mg/dL Lactic Acid 4.1 H* (0.7-2.0) mmol/L Calcium (8.4-10.2) mg/dL Total Bilirubin (0.2-1.3) mg/dL AST (17-59) U/L ALT (6-50) U/L Alkaline Phosphatase (38-126) U/L Troponin I 10.600 H* D C-Reactive Protein (<1.0) mg/dL Total Protein (6.3-8.2) g/dL Albumin (3.5-5.1) g/dL Lipase (23-300) U/L Urine Color (Yellow) Urine Appearance (Clear) Urine pH (5.0-9.0) Ur Specific [place] (1.001-1.035) Urine Protein (Negative) mg/dL Urine Glucose (UA) (Negative) mg/dL Urine Ketones (Negative) mg/dL Ur Blood (Man) (Negative) Urine Nitrate (Negative) Urine Bilirubin (Negative) Urine Urobilinogen (<2.0) mg/dL Add Ur Microanalysis Leukocyte Esterase Rfl (Negative) EDWIN/UL Urine RBC (0-2) /hpf Urine WBC (0-3) /hpf Ur Squamous Epith Cells (Few) /hpf Urine Bacteria /hpf Urine Casts Nasal MRSA (PCR) Not detected (NOT DETECTE) Imaging Data Radiologist's impression: Impressions Head CT 06/09/25 10:14 Impression: 1.No acute intracranial abnormality. Chest/Abdomen/Pelvis CTA 06/09/25 10:35 IMPRESSION: 1. 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 No focal abnormal small bowel wall thickening or abnormal enhancement to suggest hypoperfusion. 2: Severe stenosis of the right renal and moderate stenosis of the left renal arteries. 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 4: Abnormal thickening of the distal gastric wall and duodenum. Consider infectious/inflammatory etiologies as well as ischemia. 5: Dependent atelectasis. Focal consolidation right lower lobe is present. Cannot exclude superimposed pneumonia. Chest X-Ray 06/09/25 11:27 IMPRESSION: 1: There is a left-sided central venous catheter with its tip at the junction of the left brachiocephalic vein and superior vena cava. Correlate clinically. 2. Moderate-sized patchy opacities scattered throughout the left lung. Differential includes but is not limited to edema or pneumonia. Recommend follow-up to resolution to exclude an underlying pulmonary nodule or mass. Consider a chest CT. 3. Small patchy opacities in the right lung. ECG Data EKG #1: Attestation: I personally reviewed and interpreted this ECG as follows: ECG completion date: 06/09/25 ECG completion time: 08:35 Prior ECG tracings: not available for review Interpretation: Sinus tachycardia rate of 137, left axis deviation, nonspecific ST changes, EKG #2: Attestation: I personally reviewed and interpreted this ECG as follows: ECG completion date: 06/09/25 ECG completion time: 09:13 Interpretation: Sinus tachycardia rate of 137, left axis deviation, ST elevations and V1/V2 with ST depressions and 2, 3, AVF, V3 through V6 Critical Care Time Critical Care Time Critical Care Time: Yes Total Critical Care Time: 60 Discharge Plan Discharge Clinical Impression: Acute mesenteric ischemia, Septic shock ST elevation (STEMI) myocardial infarction Qualifiers: Involved coronary artery: unspecified coronary artery Qualified Code(s): I21.3 - ST elevation (STEMI) myocardial infarction of unspecified site Patient Disposition: Acute Care Hospital Condition: Critical Patient Language: [place] Prescriptions: No Action metformin 500 mg tablet 500 mg PO BIDWMEAL Qty: 180 3RF tamsulosin [Flomax] 0.4 mg capsule 0.4 mg PO DAILY Qty: 90 1RF hydrocodone-acetaminophen 5-325 mg tablet 1 tablet PO Q6H PRN (Reason: pain) Qty: 30 0RF rosuvastatin 20 mg tablet 20 mg PO DAILY Qty: 90 1RF Rx Instructions: Takes at HS hydrochlorothiazide 25 mg tablet 25 mg PO QHS Qty: 90 1RF sildenafil (pulm.hypertension) 20 mg tablet 20 mg PO DAILY PRN (Reason: Sexual Activity) Qty: 90 1RF pantoprazole 40 mg tablet,delayed release (DR/EC) 40 mg PO QAM Qty: 90 1RF lisinopril 10 mg tablet 10 mg PO DAILY Qty: 90 1RF Rx Instructions: Takes at HS nebivolol 20 mg tablet 20 mg PO HS Qty: 90 1RF Rx Instructions: Takes at HS Follow-up/Referrals: Dante Camacho MD [Primary Care Provider, Family Practice]
--- OUTSIDE RECORDS SUMMARY | 2025-06-09 08:39 | XMS_ITS | Clinical Summary ---
Author Organization [facility] Address [address] [place] [address] Phone Care Team Providers Care Accounting Clerks Supervisor Name Role Phone Dante Camacho MD Primary Care Provider [phone] Allergies No known active allergies Medications nebivoloL [...] 11:16 AM CDT Height 157.5 cm (5' 2) 06/11/2020 11:16 AM CDT Body Mass Index [...] PCV) 10/04/20 19 10/04/2018 INFLUENZA VACCINE (#1) 2025 RSV VACCINE (60+ or ) (1 - 1-dose 75+ series) 2027 Insurance Care Teams Accounting Clerks Supervisor Relationship Specialty Start Date End Date Dante Camacho MD PCP - General Family Practice 06/11/20
--- OUTSIDE RECORDS SUMMARY | 2025-06-09 08:40 | XMS_ITS | Clinical Summary ---
Author Organization [facility] Address [address] [place] [address] Care Team Providers Care Termite Inspector Name Role Phone Dante Camacho MD Unavailable [phone] Dante Camacho MD Primary Care Provider [phone] Lamin Springer MD Unavailable [phone] Miscellaneous, Not In File Unavailable Unava ilable Allergies No known active allergies Medications rosuvastatin (CRESTOR) 20 mg tablet Take 1 tablet (20 mg total) by mouth nightly 0 9 Active aspirin 81 mg enteric coated tablet Take 1 tablet (81 mg total) by mouth nightly 4 Active ascorbate calcium 500 mg tablet Take 500 mg by mouth every morning 4 Active sildenafil, pulm.hypertension, (REVATIO) 20 mg tablet Take 1 tablet (20 mg total) by mouth daily as needed 5 9 Active coenzyme Q10 100 mg capsule Take 1 capsule (100 mg total) by mouth every morning Active metFORMIN (GLUCOPHAGE) 500 mg tablet Take 1 tablet (500 mg total) by mouth 2 (two) times a day with meals 5 Active tamsulosin (FLOMAX) 0.4 mg extended release capsule Take 1 capsule (0.4 mg total) by mouth every morning 5 Active hydroCHLOROthiazide (HYDRODIURIL) 25 mg tablet Take 1 tablet (25 mg total) by mouth every morning Active lisinopriL (PRINIVIL,ZESTRIL) 10 mg tablet Take 1 tablet (10 mg total) by mouth nightly Active multivitamin with folic acid 400 mcg tablet Take 1 tablet by mouth every morning Active nebivoloL (BYSTOLIC) 20 mg tablet Take 1 tablet (20 mg total) by mouth nightly Active pantoprazole DR (PROTONIX) 40 mg EC tablet Take 1 tablet (40 mg total) by mouth every morning Active oxyCODONE (ROXICODONE) 5 mg immediate release tabletIndications:P ain Take 1 tablet (5 mg total) by mouth every 4 (four) hours as needed for pain 12 tablet 5 Active acetaminophen 500 mg capsuleIndications: Pain Take 2 capsules (1,000 mg total) by mouth every 6 (six) hours 50 tablet 5 Active ondansetron ODT (ZOFRAN-ODT) 4 mg disintegrating tabletIndications:N ausea and Vomiting Take 1 tablet (4 mg total) by mouth every 6 (six) hours as needed for nausea or vomiting 20 tablet 5 Active senna-docusate (PERICOLACE) 8.6-50 mg Take 1 tablet by mouth 2 (two) times a day 60 tablet 5 07/04/20 25 Active Active Problems Problem Noted Date Diagnosed Date Disease of gallbladder 06/03/2025 Acute pancreatitis after end oscopic retrograde cholangiopancreatography (ERCP) 04/15/2025 Assessment & Plan (04/15/2025 6:05 PM CDT): -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 Given the possible concern for choledocholithiasis and cholecystoduodenal fistula he was referred back to Interventional GI. [facility] surgery has recommended eventual completion cholecystectomy vs subtotal fenestrating cholecystectomy following endoscopic evaluation. EUS noted sludge in the common bile duct, ERCP status post biliary sphincterotomy and plastic stent placement and CT suggestive of duodenitis and pancreatitis today. -Biliary GI recommend conservative/supportive treatment of pancreatitis including IV fluids, antiemetics, analgesics p.r.n.. Okay for clear liquid diet and will follow tomorrow if can advance. Interventional biliary to follow. Appreciate consult and recommendations. -Normal saline 100 mL/hr and clear liquid diet ordered -Will hold statin due to LFT elevation -IV antiemetics p.r.n. -A.m. CBC, CMP and lipase History of peptic ulcer disease 04/15/2025 Assessment & Plan (04/15/2025 6:05 PM CDT): -Continue on PPI Benign prostatic hyperplasia without lower urinary tract symptoms 04/15/2025 Assessment & Plan (04/15/2025 6:05 PM CDT): -Continue Flomax Hypercholesteremia 04/15/2025 Assessment & Plan (04/15/2025 6:05 PM CDT): -CAD s/p history of stents. Presenting with abdominal pain, no shortness of breath or chest pain. Blood pressure stable but hydrating with IV fluids will continue aspirin but hold hydrochlorothiazide, continue on lisinopril and Bystolic. With LFT elevation will hold the Crestor. 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 Given the possible concern for choledocholithiasis and cholecystoduodenal fistula he was referred back to Interventional GI. [facility] surgery has recommended eventual completion cholecystectomy vs subtotal fenestrating cholecystectomy following endoscopic evaluation. EUS noted sludge in the common bile duct, ERCP status post biliary sphincterotomy and plastic stent placement and CT suggestive of duodenitis and pancreatitis today. -Biliary GI recommend conservative/supportive treatment of pancreatitis including IV fluids, antiemetics, analgesics p.r.n.. Okay for clear liquid diet and will follow tomorrow if can advance. Interventional biliary to follow. Appreciate consult and recommendations. -Normal saline 100 mL/hr and clear liquid diet ordered -Will hold statin due to LFT elevation -IV antiemetics p.r.n. -A.m. CBC, CMP and lipase Type 2 diabetes mellitus wit hout complication, without long-term current use of insulin 04/15/2025 Assessment & Plan (04/15/2025 6:05 PM CDT): -Please hemoglobin A1c of 6.5 and started on Glucophage, hold for now specially after given IV contrast. Glucose reason taken 182 will put on Accu-Cheks a.c. and HS with low dose sliding scale insulin. Once diet advanced consistent carb diet suggested. 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 Given the possible concern for choledocholithiasis and cholecystoduodenal fistula he was referred back to Interventional GI. [facility] surgery has recommended eventual completion cholecystectomy vs subtotal fenestrating cholecystectomy following endoscopic evaluation. EUS noted sludge in the common bile duct, ERCP status post biliary sphincterotomy and plastic stent placement and CT suggestive of duodenitis and pancreatitis today. -Biliary GI recommend conservative/supportive treatment of pancreatitis including IV fluids, antiemetics, analgesics p.r.n.. Okay for clear liquid diet and will follow tomorrow if can advance. Interventional biliary to follow. Appreciate consult and recommendations. -Normal saline 100 mL/hr and clear liquid diet ordered -Will hold statin due to LFT elevation -IV antiemetics p.r.n. -A.m. CBC, CMP and lipase Duodenitis 04/15/2025 Post-ERCP acute pancreatitis 04/15/2025 Abdominal pain 02/26/2025 Necrotizing pancreatitis 02/25/2025 Cholecystitis 02/16/2025 Sepsis 01/21/2025 DELANO (obstructive sleep apnea) 11/15/2021 Assessment & Plan (04/15/2025 8:25 PM CDT): -cpap at hs Assessment & Plan (06/10/2024 9:56 AM CDT): The patient continues to benefit from CPAP at 13 cm water pressure for ongoing symptoms of DELANO. His DME supplier is [employer]. He will follow up here in 1 [...] water pressure while sleeping. His DME is [employer]. 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 The patient denied need for supplies. DME company [employer]. Patient is benefitting from CPAP Hypersomnia 06/27/2021 Essential hypertension 06/01/2021 Assessment & Plan (04/15/2025 6:05 PM CDT): -CAD s/p history of stents. Presenting with abdominal pain, no shortness of breath or chest pain. Blood pressure stable but hydrating with IV fluids will continue aspirin but hold hydrochlorothiazide, continue on lisinopril and Bystolic. With LFT elevation will hold the Crestor. Class 2 obesity with body ma ss [...] lung parenchyma. Coronary artery disease invo [place]ving [place] coronary artery of [place] heart without angina pectoris 03/11/2019 Assessment & Plan (04/15/2025 6:05 PM CDT): -CAD s/p history of stents. Presenting with abdominal pain, no shortness of breath or chest pain. Blood pressure stable but hydrating with IV fluids will continue aspirin but hold hydrochlorothiazide, continue on lisinopril and Bystolic. With LFT elevation will hold the Crestor. History of coronary artery stent placement 03/11 Assessment & Plan (04/25/2021 3:32 PM CDT): Patient is following with [facility] tomorrow. Recent stress test did not show evidence of inducible ischemia. 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): Impression: Patient recover well status post right [...] Encounters Date Type Department Care Team Description 06/03/2025 12:52 PM CDT Anesthesia Event [facility] Operating Room [facility] [place] [address] KheyuYry ashley DO Vogt, Kristine E., CRNA 06/03/2025 12:00 PM CDT - 06/03/2025 2:30 PM CDT Surgery [facility] Operating Room [address] [place] [phone] Lamin Springer MD Robotic Assisted Subtotal Cholecystectomy and Partial Duodenectomy 06/03/2025 9:59 AM CDT - 06/05/2025 6:21 PM CDT Hospital Encounter [address] [phone] Lamin Springer MD Shortness of breath (Primary Dx); Cholecystitis Discharge Disposition: Discharge to home or self care 05/26/2025 7:30 AM CDT Pre-Admission Testing [facility] Pre Anesthesia Testing [address] [place] [phone] 05/18/2025 8:30 AM CDT Office Visit [facility] Medicine Surgery [address] [place] [address] [address] [place] [phone] Lamin Springer MD Cholecystitis (Primary Dx); Necrotizing pancreatitis 05/18/2025 7:13 AM CDT - 05/18/2025 11:59 PM CDT Hospital Encounter [facility] Imaging [address] [place] [address] Cholecystitis; Necrotizing pancreatitis Discharge Disposition: Discharge to home or self care 04/27/2025 Results Follow-Up [facility] Gastroenterology [address] [facility] Medical Office [address], [address] [place] [phone] Maribel Nelson RN Hepatic function panel 04/23/2025 5:05 PM CDT - 04/23/2025 11:59 PM CDT Hospital Encounter [address] [address] S/P ERCP; Elevated LFTs; Post-ERCP acute pancreatitis Discharge Disposition: Discharge to home or self care 04/23/2025 8:15 AM CDT Lab [facility] Outpatient Lab at [address] [phone] 04/23/2025 Telephone [facility] Surgery [address] [facility] [address] [place] [phone] Radha Benson CMA 04/23/2025 [facility] [address] [facility] Floor 8 [place] [address] Lamin Springer MD 04/23/2025 [facility] [address] [place] [address] [address] [place] [phone] Radha Benson CMA 04/21/2025 Orders Only [facility] Medicine Surgery [address] [facility] [address] [place] [phone] Shavonne Shahid PA Cholecystitis (Primary Dx); Necrotizing pancreatitis 04/20/2025 Telephone [facility] Medicine Gastroenterology [address] [place] [address] Medical Office Building [address], [address] [place] [phone] Maribel Nelson RN 04/15/2025 11:49 AM CDT - 04/16/2025 6:06 PM CDT Hospital [address] [place] [place] [phone] Rehana Park MD Berhil, Anis, MD Jain, Anshu, MD Other acute pancreatitis, unspecified complication status (Primary Dx); Duodenitis Discharge Disposition: Discharge to home or self care 04/15/2025 Telephone [facility] Medicine Gastroenterology [address] [place] [address] Medical Office Building [address], [address] [place] [phone] Maribel Nelson RN GI recs to go to ED 04/14/2025 9:00 AM CDT - 04/14/2025 10:00 AM CDT Surgery [facility] Digestive Disease [address] [place] [id number] Beto Romero MD EUS 04/14/2025 8:31 AM CDT Anesthesia Event [facility] Digestive Disease [place] [address] [facility] [address] [place] [address] Ryan Flores MD McKinney, Kenya W., CANDY FORMING MACHINE OPERATOR 04/14/2025 8:06 AM CDT - 04/14/2025 11:17 AM CDT Hospital Encounter [facility] Digestive Disease [place] [address] [facility] [address] [place] [address] Beto Romero MD Cholecystitis; Acute pancreatitis, unspecified complication status, unspecified pancreatitis type Discharge Disposition: Discharge to home or self care 03/30/2025 9:45 AM CDT Office Visit [facility] Medicine Surgery [address] [facility] [address] [place] [phone] Lamin Springer MD Cholecystitis (Primary Dx); Necrotizing pancreatitis 03/30/2025 6:33 AM CDT - 03/30/2025 11:59 PM CDT Hospital Encounter [facility] Imaging [address] [place] [address] Cholecystitis; Acute pancreatitis, unspecified complication status, unspecified pancreatitis type Discharge Disposition: Discharge to home or self care 03/30/2025 Telephone [facility] Gastroenterology [address] [facility] Medical Office [address], [address] [place] [phone] Maribel Nelson RN 03/30/2025 Telephone [facility] Specialty Services [facility] [place] [address] Tania Gaona RN GI Preprocedure from Last 3 Months Immunizations Immunization Administration Dates Next Due Pneumococcal Polysaccharide PPV23 10/04/2018 Surgical History Surgery Date Site/Laterality Comments OTHER SURGICAL HISTORY R. hand repair OTHER SURGICAL HISTORY Toe OR CARDIAC STENT PLACEMENT 10/15/2009 - 10/14/2010 S/p 2 stents in 2009: 3 mm drug-eluting stent to the LAD and a 3.5 mm stent to the right coronary artery CATARACT EXTRACTION, BILATERAL 10/15/2010 - 10/14/2011 VEIN SURGERY 09/17/2019 Right excision great saphenous- 21 stab phlebectomy CATARACT EXTRACTION 10/15/2009 - 10/14/2010 CHOLECYSTECTOMY 04/14/2024 - 05/14/2024 Partial cholecystectomy COLONOSCOPY Medical History Medical History Date Comments Hypercholesteremia Hypertension Kidney stone Arthritis Sleep apnea 2020 Obstructive slee p apnea--compliant to CPAP Peptic ulceration 2010 Coronary artery disease S/p 2 st ents in 2009: 3 mm drug-eluting stent to the LAD and a 3.5 mm stent to the right coronary artery Lumbar spinal stenosis Per notes from Neurosurgery in 2020, Stenosis mostly center centers around L1-2 and L2-3 and he has a small right T12-L1 disc herniation. Pancreatitis Family History Medical History Relation Name Comments Arthritis Father [place] Meli Heart attack Father [place]eli COPD Mother Aracelis Oliver Cancer Paternal Grandfather Blair Garrison Arthritis Paternal Grandmother Germania Garrison COPD Sister Diane White Heart disease Son Harman Garrison Relation Name Status Comments Father [place] Meli Mother Aracelis Oliver Paternal Grandfather Blair Garrison Paternal Grandmother Germania Garrison Sister Diane White Son Harman Garrison Social History Tobacco Use Types Packs/Day Years Used Date Smoking Tobacco: Former Cigarettes 1 15 1 970 - 1984 Smokeless Tobacco: Never Tobacco Cessation:Counseling Given: Not Answered Alcohol Use Standard Drinks/Week Comments Not Currently 0 (1 standard drink = 0.6 oz pur e alcohol) Social Connection and Isolation Panel Answer Date Recorded In a typical week, how many times do you talk on the phone with family, friends, or neighbors? More than three times a week 04/16/2025 How often do you get togethe r with friends or relatives? More than three times a week 04/16/2025 How often do you attend chur Concert Window or druze services? Never 04/16/2025 Do you belong to any clubs o r organizations such as rastafari groups, unions, fraternal or athletic groups, or school groups? No 04/16/2025 How often do you attend meet ings of the clubs or organizations you belong to? Never 04/16/2025 Are you , , di vorced, , never , or living with a partner? 04/16/2025 Overall Financial Resource Strain (CARDIA) Answe r Date Recorded How hard is it for you to pa y for the very basics like food, housing, medical care, and heating? Not hard at all 04/16/2025 PRAPARE - Transportation Answer Date Re corded In the past 12 months, has l ack of transportation kept you from medical appointments or from getting medications? No 12/2024 In the past 12 months, has l ack of transportation kept you from meetings, work, or from getting things needed for daily living? No 04/16/2025 Housing Stability Vital Sign Answer Jose Elias e Recorded In the last 12 months, was t here a time when you were not able to pay the mortgage or rent on time? No 04/16/2025 In the past 12 months, how m any times have you moved where you were living? 0 04/16/2025 At any time in the past 12 m [facility], were you homeless or living in a residential (including now)? No 04/16/2025 Social Connection and Isolation Panel Answer Date Recorded In a typical week, how many times do you talk on the phone with family, friends, or neighbors? Twice a week 06/04/2025 How often do you get together with friends or re latives? Twice a week 06/04/2025 How often do you attend rastafari or druze serv ices? Never 06/04/2025 Do you belong to any clubs o r organizations such as rastafari groups, unions, fraternal or athletic groups, or school groups? No 06/04/2025 How often do you attend meet ings of the clubs or organizations you belong to? Never 06/04/2025 Are you , , di vorced, , never , or living with a partner? 06/04/2025 AUDIT-C Answer Date Recorded Q1: How often do you have a drink containing alcohol? Never 05/26/2025 Q2: How many drinks containi ng alcohol do you have on a typical day when you are drinking? Patient does not drink Q3: How often do you have si x or more drinks on one occasion? Never 05/26/2025 Overall Financial Resource Strain (CARDIA) Answe r Date Recorded How hard is it for you to pa y for the very basics like food, housing, medical care, and heating? Not hard at all 06/04/2025 Hunger Vital Sign Answer Date Recorded Within the past 12 months, y ou worried that your food would run out before you got the money to buy more. Never true 06/04/20 25 Within the past 12 months, t he food you bought just didn't last and you didn't have money to get more. Never true 06/04/2025 PRAPARE - Transportation Answer Date Re corded In the past 12 months, has l ack of transportation kept you from medical appointments or from getting medications? No 05/16 In the past 12 months, has l ack of transportation kept you from meetings, work, or from getting things needed for daily living? No 06/04/2025 Housing Stability Vital Sign Answer Jose Elias e Recorded In the last 12 months, was t here a time when you were not able to pay the mortgage or rent on time? No 06/04/2025 In the past 12 months, how m any times have you moved where you were living? 0 06/04/2025 At any time in the past 12 m [facility], were you homeless or living in a residential (including now)? No 06/04/2025 [facility] Utilities Answer Date Recorded In the past 12 months has th e electric, gas, oil, or water company threatened to shut off services in your home? No 06/04/2025 Personal Safety Answer Date Recorded Have you ever been in or are you currently in a harmful physical or emotional relationship or is someone making you feel afraid or unsafe? Denies 06/03/2025 Sex and Gender Information Value Date Recorded Sex Assigned at Not on file Legal Sex Male 1:08 AM [employer] Gender Identity Male 06/20/2021 8:16 PM CDT Sexual Orientation Straight 06/20/2021 8: 16 PM CDT Obstetrics History Last Filed Vital Signs Vital Sign Reading Time Taken Comments Blood Pressure 147/67 06/05/2025 4:37 PM CDT Pulse 81 06/05/2025 4:37 PM CDT Temperature 36.5 C (97.7 F) 06/05/2025 4:37 PM CDT Respiratory Rate 20 06/05/2025 4:37 PM CDT Oxygen Saturation 94% 06/05/2025 4:37 PM CDT Inhaled Oxygen Concentration - - Weight 85.8 kg (189 lb 2.5 oz) 06/03/2025 10:20 AM CDT Height 160 cm (5' 3) 06/03/2025 10:20 AM CDT Body Mass Index 33.51 06/03/2025 10:20 AM CDT Plan of Treatment Health Maintenance Due Date Last Done Comments Albumin Creatinine Ratio, Urine 1952 Colon Cancer Screening-Colonoscopy 1952 Depression Screening 1952 Hemoglobin A1C 1952 Hepatitis C Screening 1952 Dilated Eye Exam 1952 Foot Exam 1952 Hepatitis B Screening 1970 Zoster Vaccine (1 of 2) 2002 Well Visit 65+ 2017 DTaP/Tdap/Td Vaccine (2 - Td or Tdap) 02/05/2024 02/04/2014, 06/03/2004, 02/06/1994 Influenza Vaccine (#1) 2025 08/30/2021 Lipid Panel 12/12/2025 12/12/2024, 11/15, 04/26/2021, Additional history exists Fall Risk Assessment 06/05/2026 06/05/2025 eGFR 06/05/2026 06/05/2025, 05/16, 04/16/2025, Additional history exists Pneumococcal vaccine 65+ Completed 10/04/2018, 10/2016 Abdominal Aortic Aneurysm (A AA) Screen Completed 05/18/2025, 04/15/2025, 03/30/2025, Additional history exists Medical Devices Implanted Type Area Power Transformer Inspector Device Identifier Shelf Expiration Date Model / Serial / Lot [employer] 10fr 5cm Biliary Stent [id number] - [id number] Implanted:Qty: 1 on 04/14/2025 by Beto Romero MD at [facility] Stent [employer] 02/20/2027 [id number] / / [id number] Procedures Procedure Name Priority Date/Time Associated Diagnosis Comments POCT GLUCOSE DEVICE Routine 06/05/2025 4 :58 PM CDT XR CHEST PA LATERAL 2 VIEWS IP Routine 06/05/2025 1:36 PM CDT POCT GLUCOSE DEVICE Routine 06/05/2025 1 1:09 AM CDT HOME O2 EVAL (DESATURATION SCREEN) Routine 06/05/2025 10:56 AM CDT EGFR STAT 06/05/2025 9:08 AM CDT PHOSPHORUS STAT 06/05/2025 9:08 AM CDT MAGNESIUM STAT 06/05/2025 9:08 AM CDT HEPATIC FUNCTION PANEL STAT 06/05/2025 9:08 AM CDT BASIC METABOLIC PANEL STAT 06/05/2025 9:08 AM CDT CBC WITHOUT DIFFERENTIAL STAT 06/05/2025 9:08 AM CDT POCT GLUCOSE DEVICE Routine 06/05/2025 6 :15 AM CDT POCT GLUCOSE DEVICE Routine 06/04/2025 8 :39 PM CDT POCT GLUCOSE DEVICE Routine 06/04/2025 4 :21 PM CDT POCT GLUCOSE DEVICE Routine 06/04/2025 1 1:25 AM CDT HEPATIC FUNCTION PANEL Timed 06/04/2025 10:31 AM CDT POCT GLUCOSE DEVICE Routine 06/04/2025 7 :31 AM CDT POCT GLUCOSE DEVICE Routine 06/04/2025 4 :58 AM CDT POCT GLUCOSE DEVICE Routine 06/03/2025 1 1:39 PM CDT POCT GLUCOSE DEVICE Routine 06/03/2025 9 :09 PM CDT EGFR Routine 06/03/2025 8:47 PM CDT COMPREHENSIVE METABOLIC PANEL Routine 06/03/2025 8:47 PM CDT CBC WITHOUT DIFFERENTIAL Routine 06/03/2025 8:47 PM CDT POCT GLUCOSE DEVICE Routine 06/03/2025 4 :03 PM CDT SURGICAL PATHOLOGY Routine 06/03/2025 2: 48 PM CDT Cholecystitis LA AN PROCEDURE PLACEHOLDER Routine 06/03/2025 1:24 PM CDT LA AN ELECTIVE ENDOTRACHEAL AIRWAY Routine 06/03/2025 1:24 PM CDT XI CHOLECYSTECTOMY, MULTIPORT - LAPAROSCOPIC ROBOTIC 06/03/2025 12:52 PM CDT Cholecystitis POCT GLUCOSE DEVICE Routine 06/03/2025 1 0:[address] ABDOMEN PELVIS W WO CONTRAST Schedule Routine, Read Routine (OP Routine) 05/18/2025 7:18 AM CDT Cholecystitis Necrotizing pancreatitis HEPATIC FUNCTION PANEL Routine 04/23/2025 9:00 AM CDT S/P ERCP Elevated LFTs Post-ERCP acute pancreatitis POCT GLUCOSE DEVICE Routine 04/16/2025 4 :40 PM CDT POCT GLUCOSE DEVICE Routine 04/16/2025 1 1:56 AM CDT EGFR Routine 04/16/2025 7:50 AM CDT DIFFERENTIAL AUTO Routine 04/16/2025 7:5 0 AM CDT LIPASE Routine 04/16/2025 7:50 AM CDT COMPREHENSIVE METABOLIC PANEL Routine 04/16/2025 7:50 AM CDT CBC WITH AUTO DIFFERENTIAL Routine 04/16/2025 7:50 AM CDT POCT GLUCOSE DEVICE Routine 04/16/2025 6 :16 AM CDT POCT GLUCOSE DEVICE Routine 04/15/2025 9 :[address] ABDOMEN PELVIS W CONTRAST ED 04/15/2025 1:31 PM CDT EGFR STAT 04/15/2025 1:27 PM CDT URINALYSIS, MICROSCOPIC ONLY STAT 04/15/2025 1:27 PM CDT COMPREHENSIVE METABOLIC PANEL STAT 04/15/2025 1:27 PM CDT LIPASE STAT 04/15/2025 1:27 PM CDT URINALYSIS AND REFLEX TO MICROSCOPIC AND CULTURE STAT 04/15/2025 1:27 PM CDT ECG 12-LEAD STAT 04/15/2025 12:08 PM CDT BLOOD SMEAR REVIEW STAT 04/15/2025 11 :59 AM CDT DIFFERENTIAL AUTO STAT 04/15/2025 11: 59 AM CDT CBC WITH AUTO DIFFERENTIAL STAT 04/15/2025 11:59 AM CDT FL ERCP BILIARY DUCT IP Routine 04/14/2025 11:58 AM CDT ERCP IP Routine 04/14/2025 9:30 AM CDT Cholecystitis Acute pancreatitis, unspecified complication status, unspecified pancreatitis type ERCP IP Routine 04/14/2025 9:30 AM CDT Cholecystitis Acute pancreatitis, unspecified complication status, unspecified pancreatitis type US ENDOSCOPIC IP Routine 04/14/2025 9:30 AM CDT Cholecystitis Acute pancreatitis, unspecified complication status, unspecified pancreatitis type RAD S AND I BILIARY DUCTAL SYSTEM 04/14/2025 8:32 AM CDT Cholecystitis Acute pancreatitis, unspecified complication status, unspecified pancreatitis type ERCP 04/14/2025 8:25 AM CDT UPPER EUS 04/14/2025 8:24 AM CDT POCT GLUCOSE DEVICE Routine 04/14/2025 8 :[address] ABDOMEN PELVIS W WO CONTRAST Schedule Routine, Read Routine (OP Routine) 03/30/2025 6:45 AM CDT Cholecystitis Acute pancreatitis, unspecified complication status, unspecified pancreatitis type POCT LIPID PANEL Routine 12/12/2024 2:51 PM [employer] Coronary artery disease involving [place] coronary artery of [place] heart without angina pectoris from Last 3 Months or Most Recently Relevant to Health Maintenance Results * POCT glucose (06/05/2025 4:58 PM CDT) [facility] Glucose, POC 149 70 - 199 mg/dL Comment: For Glucose values <35 mg/dl when Hematocrit is >60 mg/dl,the test may not accurately detect significant hypoglycemia,and testing in the Laboratory should be considered if clinically indicated. Blood 06/05/2025 4:58 PM CDT 06/05/2025 4:58 PM CDT us Lamin Springer MD LAB POCT ORDERABLES - DEVICE Final Result [facility] [address] Department [place] [address] * XR Chest Pa Lateral 2 Views (06/05/2025 1:36 PM CDT) Anatomical Region Laterality Modality Body, Chest N/A Computed Radiogr aphy 06/05/2025 6:42 PM CDT Impressions 06/05/2025 6:42 PM CDT Comparison with 03/03/2025 there is bibasilar atelectasis. No focal pneumonic consolidation pneumothorax. There is a tortuous atherosclerotic aorta. Mild cardiomegaly. There is extensive atherosclerotic disease. Electronically signed by: Shemar Burns M.D., MPH Narrative 06/05/2025 6:42 PM CDT EXAMINATION: 2 view chest radiograph Procedure Note Shemar Burns MD - 06/05/2025 EXAMINATION: 2 view chest radiograph IMPRESSION: Comparison with 03/03/2025 there is bibasilar atelectasis. No focal pneumonic consolidation pneumothorax. There is a tortuous atherosclerotic aorta. Mild cardiomegaly. There is extensive atherosclerotic disease. Electronically signed by: Shemar Burns M.D., MPH [place] IMG XR PROCEDURES Final R esult * POCT glucose (06/05/2025 11:09 AM CDT) Glucose, POC 114 70 - 199 mg/dL Comment: For Glucose values <35 mg/dl when Hematocrit is >60 mg/dl,the test may not accurately detect significant hypoglycemia,and testing in the Laboratory should be considered if clinically indicated. Blood 06/05/2025 11:0 9 AM CDT 06/05/2025 11:09 AM CDT Lamin Springer MD LAB POCT ORDERABLES - DEVICE Final Result [facility] [address] Department [place] [address] * eGFR (06/05/2025 9:08 AM CDT) eGFR 77 >=60 mL/min/1. 73 m2 Comment: Interpretive Data Reference Interval Normal >/= 90 mL/min/1.73m2 Mildly decreased* 60 - 89 mL/min/1.73m2 Mildly to moderately decreased 45 - 59 mL/min/1.73m2 Moderately to severely decreased 30 - 44 mL/min/1.73m2 Severely decreased 15 - 29 mL/min/1.73m2 Kidney Failure < 15 mL/min/1.73m2 *Relative to young adult level Estimated glomerular filtration rate is determined by the 2020 CKD-EPI equation recommended by the National Kidney Foundation (A Unifying Approach to GFR Estimation: Recommendations of the NKF-ASK Task Force on Reassessing the Inclusion of Race in Diagnosing Kidney Disease, JASN 2020). The CKD-EPI equation should not be used for patients with unstable renal function and has not been validated in children and those over 70. Current interpretive data was last reviewed 2021. Blood 06/05/2025 9:08 AM CDT 06/05/2025 9:24 AM CDT [facility] LAB BLOOD ORDERABLES Crissy l Result [facility] [address] Department [place] [address] * (ABNORMAL) CBC without differential (06/05/2025 9:08 AM CDT) WBC 13.83(H) 3.80 - 9.90 K/cumm Hgb 14.3 13.0 - 17.5 g/dL [facility] Hct 42.8 38.9 - 50.3 % [facility] Plt 150 150 - 400 K/cumm [facility] MPV 10.1 9.1 - 12.[address] [facility] RBC 4.86 4.30 - 5.80 M/cumm [facility] MCV 88.1 81.3 - 96.[address] [facility] MCH 29.4 27.1 - 33.[address] [facility] MCHC 33.4 32.3 - 35.7 g/dL [facility] RDW CV 13.6 11.1 - 14.9 % [facility] RDW SD 44.1 35.7 - 48.[address] [facility] NRBC abs 0.00 0.00 - 0.01 K/cumm [facility] Blood 06/05/2025 9:08 AM CDT 06/05/2025 9:25 AM CDT [facility] LAB BLOOD ORDERABLES Crissy l Result Performing Organization Address City/[facility] Co de Phone Number [facility] [address] [facility] [place] [address] * Phosphorus (06/05/2025 9:08 AM CDT) [facility] Phosphorus, pl 2.7 2.3 - 4.5 mg/dL Blood 06/05/2025 9:08 AM CDT 06/05/2025 9:24 AM CDT Sh[facility] LAB BLOOD ORDERABLES Crissy l Result Performing Organization Address [facility]/ZIP Co de Phone Number [facility] [address] [facility] [place] [address] * Magnesium (06/05/2025 9:08 AM CDT) [facility] Magnesium 1.4 1.4 - 2.5 mg/dL Blood 06/05/2025 9:08 AM CDT 06/05/2025 9:24 AM CDT [facility] LAB BLOOD ORDERABLES Crissy l Result Performing Organization Address [facility] Co de Phone Number [facility] [address] [facility] [place] [address] * (ABNORMAL) Hepatic function panel (06/05/2025 9:08 AM CDT) [facility] Bilirubin, total 1.4(H) 0.1 - 1.2 mg/dL Bilirubin, direct 0.4(H) 0.1 - 0.3 mg/dL [facility] Protein, pl 6.1(L) 6.5 - 8.5 g/dL [facility] Albumin 3.7 3.5 - 5.0 g/dL [facility] Alk phos 58 40 - 130 Units/L [facility] ALT 21 7 - 55 Units/L [facility] AST 19 10 - 50 Units/L [facility] Blood 06/05/2025 9:08 AM CDT 06/05/2025 9:24 AM CDT Sh[facility] LAB BLOOD ORDERABLES Crissy l Result Performing Organization Address [facility]/ZIP Co de Phone Number [facility] [address] Department [place] [address] * Basic metabolic panel (06/05/2025 9:08 AM CDT) [facility] Sodium 141 135 - 145 mmol/L Potassium, pl 3.7 3.3 - 4.9 mmol/L [facility] Chloride 105 97 - 110 mmol/L [facility] CO2 26 22 - 32 mmol/L [facility] Anion gap 10 2 - 15 mmol/L [facility] BUN 17 6 - 25 mg/dL [facility] Creatinine 1.03 0.80 - 1.30 mg/dL [facility] Glucose 180 70 - 199 mg/dL [facility] Comment: Interpretive Data Fasting glucose >/= 126 mg/dl is diagnostic for diabetes. Fasting is defined as no caloric intake for at least 8 hours. Fasting glucose between 100 mg/dl to 125 mg/dl is diagnostic of prediabetes. In a patient with classic symptoms of hyperglycemia or hyperglycemic crisis, a random glucose >/= 200 mg/dl is diagnostic for diabetes. In the absence of unequivocal hyperglycemia, results should be confirmed by repeat testing. The classification and Diagnosis of Diabetes Diabetes Care 2021; 46: S19-S40. Current interpretive data was last revised 2022. Calcium 9.1 8.5 - 10.3 mg/dL [facility] Blood 06/05/2025 9:08 AM CDT 06/05/2025 9:24 AM CDT Sh[facility] LAB BLOOD ORDERABLES Crissy l Result Performing Organization Address [facility]/ZIP Co de Phone Number [facility] [address] [place] [address] * POCT glucose (06/05/2025 6:15 AM CDT) Glucose, POC 143 70 - 199 mg/dL Comment: For Glucose values <35 mg/dl when Hematocrit is >60 mg/dl,the test may not accurately detect significant hypoglycemia,and testing in the Laboratory should be considered if clinically indicated. Blood 06/05/2025 6:15 AM CDT 06/05/2025 6:15 AM CDT Lamin Springer MD LAB POCT ORDERABLES - DEVICE Final Result Performing Organization Address [facility] de Phone Number [facility] [address] [facility] [place] [address] * POCT glucose (06/04/2025 8:39 PM CDT) Glucose, POC 187 70 - 199 mg/dL Comment: For Glucose values <35 mg/dl when Hematocrit is >60 mg/dl,the test may not accurately detect significant hypoglycemia,and testing in the Laboratory should be considered if clinically indicated. Blood 06/04/2025 8:39 PM CDT 06/04/2025 8:39 PM CDT Result [facility] Lamin Springer MD LAB POCT ORDERABLES - DEVICE Final Result Performing Organization Address [facility] de Phone Number [facility] [address] [facility] [place] [address] * POCT glucose (06/04/2025 4:21 PM CDT) Glucose, POC 136 70 - 199 mg/dL Comment: For Glucose values <35 mg/dl when Hematocrit is >60 mg/dl,the test may not accurately detect significant hypoglycemia,and testing in the Laboratory should be considered if clinically indicated. Blood 06/04/2025 4:21 PM CDT 06/04/2025 4:21 PM CDT Result [facility] Lamin Springer MD LAB POCT ORDERABLES - DEVICE Final Result Performing Organization Address [facility]/ZIP Co de Phone Number [facility] [address] [facility] [place] [address] * POCT glucose (06/04/2025 11:25 AM CDT) Glucose, POC 141 70 - 199 mg/dL Comment: For Glucose values <35 mg/dl when Hematocrit is >60 mg/dl,the test may not accurately detect significant hypoglycemia,and testing in the Laboratory should be considered if clinically indicated. Blood 06/04/2025 11:2 5 AM CDT 06/04/2025 11:25 AM CDT Lamin Springer MD LAB POCT ORDERABLES - DEVICE Final Result Performing Organization Address [facility] Co de Phone Number [facility] [address] [facility] [place] [address] * (ABNORMAL) Hepatic function panel (06/04/2025 10:31 AM CDT) Bilirubin, total 1.6(H) 0.1 - 1.2 mg/dL Bilirubin, direct 0.5(H) 0.1 - 0.3 mg/dL [facility] Protein, pl 6.7 6.5 - 8.5 g/dL [facility] Albumin 4.1 3.5 - 5.0 g/dL [facility] Alk phos 62 40 - 130 Units/L [facility] ALT 35 7 - 55 Units/L [facility] AST 43 10 - 50 Units/L [facility] Blood 06/04/2025 10:3 1 AM CDT 06/04/2025 10:57 AM CDT Sh[facility]onne [facility] LAB BLOOD ORDERABLES Crissy l Result Performing Organization Address [facility]/ZIP Co de Phone Number [facility] [address] [place] [address] * POCT glucose (06/04/2025 7:31 AM CDT) Glucose, POC 128 70 - 199 mg/dL Comment: For Glucose values <35 mg/dl when Hematocrit is >60 mg/dl,the test may not accurately detect significant hypoglycemia,and testing in the Laboratory should be considered if clinically indicated. Blood 06/04/2025 7:31 AM CDT 06/04/2025 7:31 AM CDT Lamin Springer MD LAB POCT ORDERABLES - DEVICE Final Result Performing Organization Address [facility] de Phone Number [facility] [address] [facility] [place] [address] * POCT glucose (06/04/2025 4:58 AM CDT) Glucose, POC 140 70 - 199 mg/dL Comment: For Glucose values <35 mg/dl when Hematocrit is >60 mg/dl,the test may not accurately detect significant hypoglycemia,and testing in the Laboratory should be considered if clinically indicated. Blood 06/04/2025 4:58 AM CDT 06/04/2025 4:58 AM CDT Result [facility] Lamin Springer MD LAB POCT ORDERABLES - DEVICE Final Result Performing Organization Address [facility] Co de Phone Number [facility] [address] [facility] [place] [address] * POCT glucose (06/03/2025 11:39 PM CDT) Glucose, POC 169 70 - 199 mg/dL Comment: For Glucose values <35 mg/dl when Hematocrit is >60 mg/dl,the test may not accurately detect significant hypoglycemia,and testing in the Laboratory should be considered if clinically indicated. Blood 06/03/2025 11:3 9 PM CDT 06/03/2025 11:39 PM CDT Lamin Springer MD LAB POCT ORDERABLES - DEVICE Final Result Performing Organization Address City/[facility]/ZIP Co de Phone Number [facility] [address] [place] [address] * POCT glucose (06/03/2025 9:09 PM CDT) Glucose, POC 154 70 - 199 mg/dL Comment: For Glucose values <35 mg/dl when Hematocrit is >60 mg/dl,the test may not accurately detect significant hypoglycemia,and testing in the Laboratory should be considered if clinically indicated. Blood 06/03/2025 9:09 PM CDT 06/03/2025 9:09 PM CDT Lamin Springer MD LAB POCT ORDERABLES - DEVICE Final Result Performing Organization Address [facility] Co de Phone Number [facility] [address] [place] [address] * eGFR (06/03/2025 8:47 PM CDT) Pathologist [facility] eGFR >90 >=60 mL/min/1. 73 m2 Comment: Interpretive Data Reference Interval Normal >/= 90 mL/min/1.73m2 Mildly decreased* 60 - 89 mL/min/1.73m2 Mildly to moderately decreased 45 - 59 mL/min/1.73m2 Moderately to severely decreased 30 - 44 mL/min/1.73m2 Severely decreased 15 - 29 mL/min/1.73m2 Kidney Failure < 15 mL/min/1.73m2 *Relative to young adult level Estimated glomerular filtration rate is determined by the 2020 CKD-EPI equation recommended by the National Kidney Foundation (A Unifying Approach to GFR Estimation: Recommendations of the NKF-ASK Task Force on Reassessing the Inclusion of Race in Diagnosing Kidney Disease, JASN 2020). The CKD-EPI equation should not be used for patients with unstable renal function and has not been validated in children and those over 70. Current interpretive data was last reviewed 2021. Blood 06/03/2025 8:47 PM CDT 06/03/2025 9:04 PM CDT Lamin Springer MD LAB BLOOD ORDERABLES Final Result Performing Organization Address City/[facility]/ZIP Co de Phone Number [facility] [address] [place] [address] * (ABNORMAL) CBC without differential (06/03/2025 8:47 PM CDT) [facility] WBC 18.88(H) 3.80 - 9.90 K/cumm Hgb 15.2 13.0 - 17.5 g/dL [facility] Hct 45.0 38.9 - 50.3 % [facility] Plt 166 150 - 400 K/cumm [facility] MPV 10.5 9.1 - 12.[address] [facility] RBC 5.18 4.30 - 5.80 M/cumm [facility] MCV 86.9 81.3 - 96.[address] [facility] MCH 29.3 27.1 - 33.[address] [facility] MCHC 33.8 32.3 - 35.7 g/dL [facility] RDW CV 13.2 11.1 - 14.9 % [facility] RDW SD 42.2 35.7 - 48.[address] [facility] NRBC abs 0.00 0.00 - 0.01 K/cumm [facility] Blood 06/03/2025 8:47 PM CDT 06/03/2025 9:04 PM CDT Lamin Springer MD LAB BLOOD ORDERABLES Final Result [facility] [address] [place] [address] * (ABNORMAL) Comprehensive metabolic panel (06/03/2025 8:47 PM CDT) Pathologist [facility] Sodium 139 135 - 145 mmol/L Potassium, pl 4.5 3.3 - 4.9 mmol/L [facility] Chloride 103 97 - 110 mmol/L [facility] CO2 22 22 - 32 mmol/L [facility] Anion gap 14 2 - 15 mmol/L [facility] BUN 17 6 - 25 mg/dL [facility] Creatinine 0.83 0.80 - 1.30 mg/dL [facility] Glucose 168 70 - 199 mg/dL [facility] Comment: Interpretive Data Fasting glucose >/= 126 mg/dl is diagnostic for diabetes. Fasting is defined as no caloric intake for at least 8 hours. Fasting glucose between 100 mg/dl to 125 mg/dl is diagnostic of prediabetes. In a patient with classic symptoms of hyperglycemia or hyperglycemic crisis, a random glucose >/= 200 mg/dl is diagnostic for diabetes. In the absence of unequivocal hyperglycemia, results should be confirmed by repeat testing. The classification and Diagnosis of Diabetes Diabetes Care 202; 46: S19-S40. Current interpretive data was last revised 2022. Calcium 9.1 8.5 - 10.3 mg/dL [facility] Bilirubin, total 1.5(H) 0.1 - 1.2 mg/dL [facility] Protein, pl 6.4(L) 6.5 - 8.5 g/dL [facility] Albumin 4.0 3.5 - 5.0 g/dL [facility] Alk phos 63 40 - 130 Units/L [facility] ALT 48 7 - 55 Units/L [facility] AST 79(H) 10 - 50 Units/L [facility] Comment:Slightly Hemolyzed S pecimen Blood 06/03/2025 8:47 PM CDT 06/03/2025 9:04 PM CDT Lamin Springer MD LAB BLOOD ORDERABLES Final Result [facility] [address] Department [place] [address] * POCT glucose (06/03/2025 4:03 PM CDT) [facility] Glucose, POC 148 70 - 199 mg/dL Comment: For Glucose values <35 mg/dl when Hematocrit is >60 mg/dl,the test may not accurately detect significant hypoglycemia,and testing in the Laboratory should be considered if clinically indicated. Blood 06/03/2025 4:03 PM CDT 06/03/2025 4:03 PM CDT Lamin Springer MD LAB POCT ORDERABLES - DEVICE Final Result [facility] [place] [address] Department [place] [address] * Surgical pathology (06/03/2025 2:48 PM CDT) Tissue (Duodenum, Biopsy) 06/03/2025 2:48 PM CDT Comment:Placed in formalin i n lab following procedure Narrative [facility] - 06/05/2025 10:52 AM CDT [place] [address] [place], [place] [address] Tele: Carol Braxton MD - Supply Analyst Note to Patients: This report may contain a detailed description of human tissue sent by a health care provider to the laboratory for pathologic evaluation. The content of this report is essential for diagnosis and may provide important critical findings. This information may be unfamiliar to patients to review without a medical professional present. It is advised that the patient review this report in the presence of a health care provider who can answer questions and explain the details. SURGICAL PATHOLOGY REPORT Patient Name: TOMMY GARRISON . Address: [address] [place] [address] Gender: M : 1950 (Age: 75) Service: Surgery Location: [place] [address], Hospital #: [id number] Patient Type: [facility] Taken: 06/03/2025 Received 06/03/2025 Reported: 06/05/2025 Physician(s): Vanessa Krishnan M.D. DIAGNOSIS: Submitted as gallbladder wall and duodenum, subtotal cholecystectomy and partial duodenectomy: - Acute and chronic cholecystitis rera/06/05/2025 10:52 Examining Pathologist: Connie Hunt M.D. Report Reviewed and Electronically Signed By Connie Hunt M.D. SPECIMEN TYPE: A: GALLBLADDER WALL AND DUODENUM CLINICAL IMPRESSION AND HISTORY: Cholecystitis GROSS DESCRIPTION: Received in formalin labeled with TOMMY GARRISON and gallbladder wall and duodenum are multiple red-brown irregular tissue fragments measuring 2.5 x 1.5 x 0.3 cm in aggregate The specimen is entirely submitted in cassette labeled A1. [facility]06/03/2025 17:19 [facility] MICROSCOPIC DESCRIPTION: Microscopic examination supports the above captioned diagnosis. Additionally, there are fragments of smooth muscle which could represent small bowel wall and fibrovascular tissue with areas of cautery artifact. However, no definitive duodenal mucosa is identified. Clerical Data Follows A; 19572 REPORT IMAGES AND/OR SCANNED DOCUMENTS ONLY VIEWABLE IN PDF FORMAT The immunohistochemical test(s) cited in this report, if any, was developed and its performance characteristics determined by [facility] Pathology Department. It has not been cleared or approved by the U.S. Food and Drug Administration. The FDA has determined that such clearance or approval is not necessary. This test is used for clinical purposes. It should not be regarded as investigational or for research. [facility] Laboratory is certified under the Clinical Laboratory Improvement Amendments of 1988 (CLIA) as qualified to perform high complexity testing. Immunostains were performed on formalin-fixed paraffin embedded tissue using a polymer diaminobenzidine chromogen detection system. Antibodies used may include clone SP1 (rabbit monoclonal, estrogen receptor), clone 1E2 (rabbit monoclonal progesterone receptor), Ki-67 (rabbit monoclonal, 30-9), CD117 (rabbit polyclonal, c-kit), and anti-Her-2/norma (4B5) (rabbit monoclonal primary antibody). In the event that immunohistochemistry or special stains have been performed, attending physician has confirmed appropriateness of controls. Frozen section, operating room consultation, gross examination and dissection, and case sign out may have been performed in part or completely in the following laboratories: [facility], [address] [place] [id number] [place] [address], [address] [place] [address], [place] [address]. Lamin Springer MD LAB PATHOLOGY ORDERA BLES Final Result [facility] Laboratory [address] [place] [address] * LA AN ELECTIVE ENDOTRACHEAL AIRWAY, LA AN PROCEDURE PLACEHOLDER (06/03/2025 1:24 PM CDT) Narrative Vita Castillo CRNA - 06/03/2025 1:24 PM CDT Vita Castillo CRNA 06/03/2025 1:25 PM Airway Patient location: OR Urgency: elective Date/time: 06/03/2025 1:05 PM Indications for airway management: anesthesia Difficult airway: no Staff: Supervising provider: Yury Garcia DO Placed by: CANDY FORMING MACHINE OPERATOR: Vita Castillo CRNA Emergent airway documentation: Risks and benefits discussed: yes Consent obtained: yes Consent given by: patient Airway prep: Preoxygenated: yes Patient position: sniffing Mask difficulty assessment: 1 - vent by mask Sedation level during airway: GA Final airway details: Final airway type: endotracheal airway Tube type: ETT ETT size: 8.0 mm Cuffed: yes Technique used for successful ETT placement: direct laryngoscopy Devices/Methods used in placement: stylet Insertion site: oral Blade type: Ines Blade size: 4 Cormack-Lehane (direct): grade IIa - partial view of glottis Cuff volume: 10 mL Cuff inflated with: air ETT to lips: 23 cm Placement verified by: auscultation and CO2 detection Airway secured with: silk tape Number of attempts: 1 Result [facility] Yury Garcia DO ANESTHESIA ORDERABLES Edited Result - Final * POCT glucose (06/03/2025 10:39 AM CDT) Glucose, POC 111 70 - 199 mg/dL Comment: For Glucose values <35 mg/dl when Hematocrit is >60 mg/dl,the test may not accurately detect significant hypoglycemia,and testing in the Laboratory should be considered if clinically indicated. Blood 06/03/2025 10:3 9 AM CDT 06/03/2025 10:39 AM CDT Lamin Springer MD LAB POCT ORDERABLES - DEVICE Final Result [facility] [address] Department [place] [address] * CT abdomen pelvis with and without contrast (05/18/2025 7:18 AM CDT) Anatomical Region Laterality Modality Body N/A Computed Tomogra phy 05/18/2025 9:05 AM CDT Impressions 05/18/2025 9:05 AM CDT 1. Interval improvement in mild acute pancreatitis involving the pancreatic head. 2. Urinary bladder wall thickening with mucosal enhancement which can be seen in setting of cystitis. Correlate clinically. Electronically signed by: Jeremy Muhammad M.D. Narrative 05/18/2025 9:05 AM CDT EXAMINATION: Computed tomography of the abdomen and pelvis with and without intravenous contrast HISTORY: Pancreatitis. Patient is status post biliary sphincterotomy and stent placement TECHNIQUE: Transaxial computed tomographic images of the abdomen and pelvis were obtained with and without intravenous contrast according to the pancreatic protocol after the uneventful administration of 100 mL Opti-Ray 350 intravenous contrast. COMPARISON: Computed tomography examination of the abdomen pelvis 04/15/2025 FINDINGS: Lung bases are clear. Heart size is normal. Coronary artery calcifications noted. Gallbladder is decompressed. Air is present within the intrahepatic biliary tree. Common bile duct stent again noted. There is improved inflammatory changes surrounding the pancreatic head. No peripancreatic fluid collections present. There is no pancreatic ductal dilatation. Spleen, both adrenal glands appear normal. Nonobstructing stone noted within the midpole the right kidney. Cysts noted within both kidneys. The largest on the left is partially calcified. Extensive atherosclerotic changes noted within the aorta and branch vessels. Bowel gas pattern is normal. There is mild urinary bladder wall thickening with mucosal enhancement. Prostate is heterogeneous. There is no free pelvic fluid. There is no abdominal or pelvic lymphadenopathy. Images obtained with bone window settings demonstrate no suspicious osseous abnormality. Procedure Note Jeremy Muhammad MD - 05/18/2025 EXAMINATION: Computed tomography of the abdomen and pelvis with and without intravenous contrast HISTORY: Pancreatitis. Patient is status post biliary sphincterotomy and stent placement TECHNIQUE: Transaxial computed tomographic images of the abdomen and pelvis were obtained with and without intravenous contrast according to the pancreatic protocol after the uneventful administration of 100 mL Opti-Ray 350 intravenous contrast. COMPARISON: Computed tomography examination of the abdomen pelvis 04/15/2025 FINDINGS: Lung bases are clear. Heart size is normal. Coronary artery calcifications noted. Gallbladder is decompressed. Air is present within the intrahepatic biliary tree. Common bile duct stent again noted. There is improved inflammatory changes surrounding the pancreatic head. No peripancreatic fluid collections present. There is no pancreatic ductal dilatation. Spleen, both adrenal glands appear normal. Nonobstructing stone noted within the midpole the right kidney. Cysts noted within both kidneys. The largest on the left is partially calcified. Extensive atherosclerotic changes noted within the aorta and branch vessels. Bowel gas pattern is normal. There is mild urinary bladder wall thickening with mucosal enhancement. Prostate is heterogeneous. There is no free pelvic fluid. There is no abdominal or pelvic lymphadenopathy. Images obtained with bone window settings demonstrate no suspicious osseous abnormality. IMPRESSION: 1. Interval improvement in mild acute pancreatitis involving the pancreatic head. 2. Urinary bladder wall thickening with mucosal enhancement which can be seen in setting of cystitis. Correlate clinically. Electronically signed by: Jeremy Muhammad M.D. Shavonne SEP[facility] IMG CT PROCEDURES Final R esult * (ABNORMAL) Hepatic function panel (04/23/2025 9:00 AM CDT) Bilirubin, total 1.3(H) 0.1 - 1.2 mg/dL Bilirubin, direct 0.4(H) 0.1 - 0.3 mg/dL [facility] Protein, pl 7.0 6.5 - 8.5 g/dL [facility] Albumin 3.7 3.5 - 5.0 g/dL [facility] Alk phos 107 40 - 130 Units/L [facility] ALT 21 7 - 55 Units/L [facility] AST 25 10 - 50 Units/L [facility] Blood 04/23/2025 9:00 AM CDT 04/23/2025 5:26 PM CDT Beto Romero MD LAB BLOOD ORDERABLES Final Result [facility] [address] [place] [address] * POCT glucose (04/16/2025 4:40 PM CDT) Glucose, POC 122 70 - 199 mg/dL Comment: For Glucose values <35 mg/dl when Hematocrit is >60 mg/dl,the test may not accurately detect significant hypoglycemia,and testing in the Laboratory should be considered if clinically indicated. POC Performer [phone] [facility] Blood 04/16/2025 4:40 PM CDT 04/16/2025 4:40 PM CDT Josias Mayer MD LAB POCT ORDERABLES - DEVICE Fin al Result Performing Organization Address [facility] de Phone Number [facility] [address] [facility] [place] [address] * POCT glucose (04/16/2025 11:56 AM CDT) Glucose, POC 114 70 - 199 mg/dL Comment: For Glucose values <35 mg/dl when Hematocrit is >60 mg/dl,the test may not accurately detect significant hypoglycemia,and testing in the Laboratory should be considered if clinically indicated. POC Performer [id number] [facility] Blood 04/16/2025 11:5 6 AM CDT 04/16/2025 11:56 AM CDT Josias Mayer MD LAB POCT ORDERABLES - DEVICE Fin al Result Performing Organization Address [facility] Co de Phone Number [facility] [address] [facility] [place] [address] * eGFR (04/16/2025 7:50 AM CDT) eGFR 90 >=60 mL/min/1. 73 m2 Comment: Interpretive Data Reference Interval Normal >/= 90 mL/min/1.73m2 Mildly decreased* 60 - 89 mL/min/1.73m2 Mildly to moderately decreased 45 - 59 mL/min/1.73m2 Moderately to severely decreased 30 - 44 mL/min/1.73m2 Severely decreased 15 - 29 mL/min/1.73m2 Kidney Failure < 15 mL/min/1.73m2 *Relative to young adult level Estimated glomerular filtration rate is determined by the 2020 CKD-EPI equation recommended by the National Kidney Foundation (A Unifying Approach to GFR Estimation: Recommendations of the NKF-ASK Task Force on Reassessing the Inclusion of Race in Diagnosing Kidney Disease, JASN 202). The CKD-EPI equation should not be used for patients with unstable renal function and has not been validated in children and those over 70. Current interpretive data was last reviewed 2021. Blood 04/16/2025 7:50 AM CDT 04/16/2025 8:43 AM CDT us Rehana Park MD LAB BLOOD ORDERABLES Final Res ult [facility] [address] Department [place] [address] * (ABNORMAL) Differential, auto (04/16/2025 7:50 AM CDT) Neutrophil abs 13.73(H) 1.50 - 6.50 K/cumm Imm gran abs 0.11(H) 0.00 - 0.10 K/cumm [facility] Lymphocyte abs 0.81 0.80 - 3.30 K/cumm [facility] Monocyte abs 0.90(H) 0.20 - 0.80 K/cumm [facility] Eosinophil abs 0.03 0.00 - 0.50 K/cumm [facility] Basophil abs 0.03 0.00 - 0.10 K/cumm [facility] Neutrophil pct 87.9 % [facility] Comment: Interpretive Data Percent cell count reference ranges are not reported, since discordance with absolute values may lead to misinterpretation of CBC data. Current Interpretive Data was last revised on 2018. Imm gran pct 0.7 % [facility] Comment: Interpretive Data Percent cell count reference ranges are not reported, since discordance with absolute values may lead to misinterpretation of CBC data. Current Interpretive Data was last revised on 2018. Lymphocyte pct 5.2 % [facility] Comment: Interpretive Data Percent cell count reference ranges are not reported, since discordance with absolute values may lead to misinterpretation of CBC data. Current Interpretive Data was last revised on 2018. Monocyte pct 5.8 % [facility] Comment: Interpretive Data Percent cell count reference ranges are not reported, since discordance with absolute values may lead to misinterpretation of CBC data. Current Interpretive Data was last revised on 2018. Eosinophil pct 0.2 % [facility] Comment: Interpretive Data Percent cell count reference ranges are not reported, since discordance with absolute values may lead to misinterpretation of CBC data. Current Interpretive Data was last revised on 2018. Basophil pct 0.2 % [facility] Comment: Interpretive Data Percent cell count reference ranges are not reported, since discordance with absolute values may lead to misinterpretation of CBC data. Current Interpretive Data was last revised on 2018. Blood 04/16/2025 7:50 AM CDT 04/16/2025 8:43 AM CDT Vicenta Navarro [employer] LAB BLOOD ORDERA BLES Final Result [facility] [address] Department [place] [address] * (ABNORMAL) CBC with auto differential (04/16/2025 7:50 AM CDT) WBC 15.61(H) 3.80 - 9.90 K/cumm Hgb 15.3 13.0 - 17.5 g/dL [facility] Hct 45.4 38.9 - 50.3 % [facility] Plt 124(L) 150 - 400 K/cumm [facility] MPV 11.3 9.1 - 12.[address] [facility] RBC 5.08 4.30 - 5.80 M/cumm [facility] MCV 89.4 81.3 - 96.[address] [facility] MCH 30.1 27.1 - 33.[address] [facility] MCHC 33.7 32.3 - 35.7 g/dL [facility] RDW CV 13.8 11.1 - 14.9 % [facility] RDW SD 45.2 35.7 - 48.[address] [facility] NRBC abs 0.00 0.00 - 0.01 K/cumm [facility] Blood 04/16/2025 7:50 AM CDT 04/16/2025 8:43 AM CDT us Vicenta Navarro NP LAB BLOOD ORDERA BLES Final Result Performing Organization Address City/[facility]/ZIP Co de Phone Number [facility] [address] Department of [place], [place] [id number] * (ABNORMAL) Lipase (04/16/2025 7:50 AM CDT) [facility] Lipase 113(H) 10 - 99 Units/L Blood 04/16/2025 7:50 AM CDT 04/16/2025 8:43 AM CDT us Rehana Park MD LAB BLOOD ORDERABLES Final Res ult Performing Organization Address [facility]/ZIP Co de Phone Number [facility] [address] [place] [address] * (ABNORMAL) Comprehensive metabolic panel (04/16/2025 7:50 AM CDT) [facility] Sodium 143 135 - 145 mmol/L Potassium, pl 4.2 3.3 - 4.9 mmol/L [facility] Chloride 105 97 - 110 mmol/L [facility] CO2 25 22 - 32 mmol/L [facility] Anion gap 13 2 - 15 mmol/L [facility] BUN 21 6 - 25 mg/dL [facility] Creatinine 0.90 0.80 - 1.30 mg/dL [facility] Glucose 112 70 - 199 mg/dL [facility] Comment: Interpretive Data Fasting glucose >/= 126 mg/dl is diagnostic for diabetes. Fasting is defined as no caloric intake for at least 8 hours. Fasting glucose between 100 mg/dl to 125 mg/dl is diagnostic of prediabetes. In a patient with classic symptoms of hyperglycemia or hyperglycemic crisis, a random glucose >/= 200 mg/dl is diagnostic for diabetes. In the absence of unequivocal hyperglycemia, results should be confirmed by repeat testing. The classification and Diagnosis of Diabetes Diabetes Care 202; 46: S19-S40. Current interpretive data was last revised 2022. Calcium 8.7 8.5 - 10.3 mg/dL [facility] Bilirubin, total 6.0(H) 0.1 - 1.2 mg/dL [facility] Protein, pl 5.5(L) 6.5 - 8.5 g/dL [facility] Albumin 3.4(L) 3.5 - 5.0 g/dL [facility] Alk phos 138(H) 40 - 130 Units/L [facility] ALT 171(H) 7 - 55 Units/L [facility] AST 156(H) 10 - 50 Units/L [facility] Blood 04/16/2025 7:50 AM CDT 04/16/2025 8:43 AM CDT us Rehana Park MD LAB BLOOD ORDERABLES Final Res ult [facility] [address] Department [place] [address] * POCT glucose (04/16/2025 6:16 AM CDT) Glucose, POC 127 70 - 199 mg/dL Comment: For Glucose values <35 mg/dl when Hematocrit is >60 mg/dl,the test may not accurately detect significant hypoglycemia,and testing in the Laboratory should be considered if clinically indicated. POC Performer [phone] [facility] Blood 04/16/2025 6:16 AM CDT 04/16/2025 6:16 AM CDT us Nataliia Pantoja MD LAB POCT ORDERABLES - DEVICE Fin al Result Performing Organization Address [facility] Co de Phone Number [facility] [address] [facility] [place] [address] * POCT glucose (04/15/2025 9:23 PM CDT) [facility] Signature Glucose, POC 166 70 - 199 mg/dL Comment: For Glucose values <35 mg/dl when Hematocrit is >60 mg/dl,the test may not accurately detect significant hypoglycemia,and testing in the Laboratory should be considered if clinically indicated. POC Performer [id number] [facility] Blood 04/15/2025 9:23 PM CDT 04/15/2025 9:23 PM CDT Nataliia Pantoja MD LAB POCT ORDERABLES - DEVICE Fin al Result Performing Organization Address [facility] de Phone Number [facility] [address] [facility] [place] [address] * CT Abdomen Pelvis W Contrast (04/15/2025 1:31 PM CDT) Anatomical Region Laterality Modality Body N/A Computed Tomogra phy 04/15/2025 1:50 PM CDT Impressions 04/15/2025 3:15 PM CDT Findings suggestive of duodenitis and pancreatitis status post biliary sphincterotomy and biliary stent placement. The biliary stent is in appropriate position. Dictated by: Brayan Waite MD The radiology attending physician has personally reviewed this study, and had reviewed and/or edited this written report and agrees with it. Electronically signed by: Shemar Burns M.D., MPH Narrative 04/15/2025 3:15 PM CDT EXAMINATION: Computed tomography of the abdomen and pelvis with intravenous contrast HISTORY: Abdominal pain status post biliary sphincterotomy and stent placement TECHNIQUE: Transaxial computed tomographic images of the abdomen and pelvis were obtained with intravenous contrast according to the standard protocol after the uneventful administration of 100 mL Opti-Ray 350 intravenous contrast. COMPARISON: 03/30/2025 FINDINGS: Imaged portions of the lung bases demonstrate bibasilar atelectasis without pleural effusion, pulmonary consolidation or pneumothorax. The heart is normal in size, there is no pericardial effusion. Multivessel coronary artery calcifications are noted. There are no focal liver lesions. There are postoperative findings of biliary sphincterotomy with pneumobilia and a plastic stents in the common bile duct extending into the duodenum. Postoperative findings of partial cholecystectomy; the remnant gallbladder is not well seen The portal vein, splenic vein, superior mesenteric vein are patent. There is progressive stranding about the pancreatic head and proximal duodenum. Pancreatic ductal dilatation is decreased compared to prior study. The spleen and adrenal glands are normal. The kidneys enhance symmetrically, there is no hydronephrosis. There are bilateral renal cysts, unchanged. Nonobstructive right renal stone measuring up to 1.8 cm. The bladder is normal. The prostate is mildly enlarged. A is a there is colonic diverticulosis without evidence of diverticulitis. Bowel small volume ascites. No pneumoperitoneum. The appendix is normal. The abdominal aorta is normal in caliber. There is marked aortoiliac atherosclerosis. There is no abdominopelvic adenopathy. No suspicious osseous lesion. Procedure Note Shemar Burns MD - 04/15/2025 EXAMINATION: Computed tomography of the abdomen and pelvis with intravenous contrast HISTORY: Abdominal pain status post biliary sphincterotomy and stent placement TECHNIQUE: Transaxial computed tomographic images of the abdomen and pelvis were obtained with intravenous contrast according to the standard protocol after the uneventful administration of 100 mL Opti-Ray 350 intravenous contrast. COMPARISON: 03/30/2025 FINDINGS: Imaged portions of the lung bases demonstrate bibasilar atelectasis without pleural effusion, pulmonary consolidation or pneumothorax. The heart is normal in size, there is no pericardial effusion. Multivessel coronary artery calcifications are noted. There are no focal liver lesions. There are postoperative findings of biliary sphincterotomy with pneumobilia and a plastic stents in the common bile duct extending into the duodenum. Postoperative findings of partial cholecystectomy; the remnant gallbladder is not well seen The portal vein, splenic vein, superior mesenteric vein are patent. There is progressive stranding about the pancreatic head and proximal duodenum. Pancreatic ductal dilatation is decreased compared to prior study. The spleen and adrenal glands are normal. The kidneys enhance symmetrically, there is no hydronephrosis. There are bilateral renal cysts, unchanged. Nonobstructive right renal stone measuring up to 1.8 cm. The bladder is normal. The prostate is mildly enlarged. A is a there is colonic diverticulosis without evidence of diverticulitis. Bowel small volume ascites. No pneumoperitoneum. The appendix is normal. The abdominal aorta is normal in caliber. There is marked aortoiliac atherosclerosis. There is no abdominopelvic adenopathy. No suspicious osseous lesion. IMPRESSION: Findings suggestive of duodenitis and pancreatitis status post biliary sphincterotomy and biliary stent placement. The biliary stent is in appropriate position. Dictated by: Brayan Waite MD The radiology attending physician has personally reviewed this study, and had reviewed and/or edited this written report and agrees with it. Electronically signed by: Shemar Burns M.D., MPH Micah SEP[facility] IMG CT PROCEDURES Final Resul t * eGFR (04/15/2025 1:27 PM CDT) eGFR 83 >=60 mL/min/1. 73 m2 Comment: Interpretive Data Reference Interval Normal >/= 90 mL/min/1.73m2 Mildly decreased* 60 - 89 mL/min/1.73m2 Mildly to moderately decreased 45 - 59 mL/min/1.73m2 Moderately to severely decreased 30 - 44 mL/min/1.73m2 Severely decreased 15 - 29 mL/min/1.73m2 Kidney Failure < 15 mL/min/1.73m2 *Relative to young adult level Estimated glomerular filtration rate is determined by the 2020 CKD-EPI equation recommended by the National Kidney Foundation (A Unifying Approach to GFR Estimation: Recommendations of the NKF-ASK Task Force on Reassessing the Inclusion of Race in Diagnosing Kidney Disease, JASN 202). The CKD-EPI equation should not be used for patients with unstable renal function and has not been validated in children and those over 70. Current interpretive data was last reviewed 2021. Blood 04/15/2025 1:27 PM CDT 04/15/2025 1:38 PM CDT Mathew Gaitan MD LAB BLOOD ORDERABLES Final R esult Performing Organization Address City/[facility]/ZIP Co de Phone Number [facility] [address] Department [place] [address] * (ABNORMAL) Urinalysis reflex to microscopic and culture Urine (04/15/2025 1:27 PM CDT) Color, ur Yellow Yellow Clarity, ur Turbid(A) Clear [facility] Specific gravity, ur 1.021 1.003 - 1.030 [facility] pH, urine 6.0 [facility] Comment: Interpretive Data U rine pH is affected by diet, medications, systemic acid-base disturbances, and renal tubular function. pH may affect urinary stone formation. For example, urine pH below 6.0 may help reduce the tendency for calcium phosphate stones and pH greater than 6.0 may reduce the tendency for uric acid stone formation. Source: [facility] Current Interpretive Data was last revised on 2017 Protein, ur ql Trace Negative [facility] Glucose, ur ql Negative Negative [facility] Ketones, ur 1+(A) Negative [facility] Bilirubin, ur 1+(A) Negative [facility] Blood, ur 3+(A) Negative [facility] Urobilinogen, ur 4.0(A) <2.0 mg/dL [facility] Nitrite, ur Negative Negative [facility] Leukocyte esterase, ur Negative Negative [facility] UA reflex comment Reflex to microscopic UA will be performed. [facility] Urine 04/15/2025 1:27 PM CDT 04/15/2025 1:27 PM CDT us Rehana Park MD LAB MICROBIOLOGY - GENERAL ORD ERABLES Final Result Performing Organization Address City/[facility]/ZIP Co de Phone Number [facility] [address] [place] [address] * (ABNORMAL) Urinalysis, microscopic only (04/15/2025 1:27 PM CDT) WBC, ur 0-5 0 - 5 /HPF RBC, ur >50(A) 0 - 2 /HPF [facility] Epithelial cells, squamous, ur 1-5 0 - 5 /HPF [facility] Mucous, ur Present(A) [facility] Culture Reflex Comment Reflex conditions for urine culture (WBC >10) not met. [facility] Urine 04/15/2025 1:27 PM CDT 04/15/2025 1:38 PM CDT Rehana Park MD LAB URINE ORDERABLES Final Res ult Performing Organization Address City/[facility]/ZIP Co de Phone Number [facility] [address] [place] [address] * (ABNORMAL) Lipase (04/15/2025 1:27 PM CDT) Pathologist [facility] Lipase 687(H) 10 - 99 Units/L Blood 04/15/2025 1:27 PM CDT 04/15/2025 1:38 PM CDT us Mathew Gaitan MD LAB BLOOD ORDERABLES Final R esult Performing Organization Address [facility] Co de Phone Number [facility] [address] [place] [address] * (ABNORMAL) Comprehensive metabolic panel (04/15/2025 1:27 PM CDT) Pathologist [facility] Sodium 139 135 - 145 mmol/L Potassium, pl 4.4 3.3 - 4.9 mmol/L [facility] Comment:Hemolyzed; potassium value may be falsely elevated by as much as 0.3 - 0.5 mmol/L. Suggest redraw and reanalysis Chloride 100 97 - 110 mmol/L [facility] CO2 23 22 - 32 mmol/L [facility] Anion gap 16(H) 2 - 15 mmol/L [facility] BUN 21 6 - 25 mg/dL [facility] Creatinine 0.96 0.80 - 1.30 mg/dL [facility] Glucose 182 70 - 199 mg/dL [facility] Comment: Interpretive Data Fasting glucose >/= 126 mg/dl is diagnostic for diabetes. Fasting is defined as no caloric intake for at least 8 hours. Fasting glucose between 100 mg/dl to 125 mg/dl is diagnostic of prediabetes. In a patient with classic symptoms of hyperglycemia or hyperglycemic crisis, a random glucose >/= 200 mg/dl is diagnostic for diabetes. In the absence of unequivocal hyperglycemia, results should be confirmed by repeat testing. The classification and Diagnosis of Diabetes Diabetes Care 2021; 46: S19-S40. Current interpretive data was last revised 2022. Calcium 9.0 8.5 - 10.3 mg/dL [facility] Bilirubin, total 6.5(H) 0.1 - 1.2 mg/dL [facility] Protein, pl 5.8(L) 6.5 - 8.5 g/dL [facility] Albumin 3.6 3.5 - 5.0 g/dL [facility] Alk phos 132(H) 40 - 130 Units/L [facility] ALT 222(H) 7 - 55 Units/L [facility] AST 266(H) 10 - 50 Units/L [facility] Comment:Slightly Hemolyzed S pecimen Blood 04/15/2025 1:27 PM CDT 04/15/2025 1:38 PM CDT us Mathew Gaitan MD LAB BLOOD ORDERABLES Final R esult [facility] [address] Department [place] [address] * ECG 12 lead (04/15/2025 12:08 PM CDT) 04/15/2025 12:0 8 PM CDT Narrative [facility] - 04/16/2025 9:00 AM CDT Vent Rate: 83 bpm RR Interval: 719 msec LA Interval: 182 msec QRS Duration: 113 msec QT Interval: 361 msec QTC Interval: 401 msec P-R-T Armstrong: 8 - -14 - 19 degrees IMPRESSION: SINUS RHYTHM POSSIBLE SEPTAL MYOCARDIAL INFARCTION , OF INDETERMINATE AGE ABNORMAL ECG Electronically Signed By: Bryan Lindsey MD [facility] us Rehana Park MD ECG ORDERABLES Final Result [facility] * Blood smear review (04/15/2025 11:59 AM CDT) RBC morphology Normal Platelet estimate Adequate [facility] Morphology scrn See Comment [facility] Comment:PLT: Platelet morpho logy normal Blood 04/15/2025 11:5 9 AM CDT 04/15/2025 12:26 PM CDT Rehana Park MD LAB BLOOD ORDERABLES Final Res ult Performing Organization Address City/[facility]/ZIP Co de Phone Number [facility] [address] Department [place] [address] * (ABNORMAL) Differential, auto (04/15/2025 11:59 AM CDT) Pathologist [facility] Neutrophil abs 20.52(H) 1.50 - 6.50 K/cumm Imm gran abs 0.13(H) 0.00 - 0.10 K/cumm [facility] Lymphocyte abs 0.30(L) 0.80 - 3.30 K/cumm [facility] Monocyte abs 0.77 0.20 - 0.80 K/cumm [facility] Eosinophil abs 0.11 0.00 - 0.50 K/cumm [facility] Basophil abs 0.11(H) 0.00 - 0.10 K/cumm [facility] Neutrophil pct 93.5 % [facility] Comment: Interpretive Data Percent cell count reference ranges are not reported, since discordance with absolute values may lead to misinterpretation of CBC data. Current Interpretive Data was last revised on 2018. Imm gran pct 0.6 % [facility] Comment: Interpretive Data Percent cell count reference ranges are not reported, since discordance with absolute values may lead to misinterpretation of CBC data. Current Interpretive Data was last revised on 2018. Lymphocyte pct 1.4 % [facility] Comment: Interpretive Data Percent cell count reference ranges are not reported, since discordance with absolute values may lead to misinterpretation of CBC data. Current Interpretive Data was last revised on 2018. Monocyte pct 3.5 % [facility] Comment: Interpretive Data Percent cell count reference ranges are not reported, since discordance with absolute values may lead to misinterpretation of CBC data. Current Interpretive Data was last revised on 2018. Eosinophil pct 0.5 % [facility] Comment: Interpretive Data Percent cell count reference ranges are not reported, since discordance with absolute values may lead to misinterpretation of CBC data. Current Interpretive Data was last revised on 2018. Basophil pct 0.5 % [facility] Comment: Interpretive Data Percent cell count reference ranges are not reported, since discordance with absolute values may lead to misinterpretation of CBC data. Current Interpretive Data was last revised on 2018. Blood 04/15/2025 11:5 9 AM CDT 04/15/2025 12:26 PM CDT us Rehana Park MD LAB BLOOD ORDERABLES Final Res ult [facility] [address] Department of Laboratories [place], [place] [id number] * (ABNORMAL) CBC with auto differential (04/15/2025 11:59 AM CDT) WBC 21.94(H) 3.80 - 9.90 K/cumm Hgb 16.7 13.0 - 17.5 g/dL [facility] Hct 48.3 38.9 - 50.3 % [facility] Plt 143(L) 150 - 400 K/cumm [facility] MPV 10.6 9.1 - 12.[address] [facility] RBC 5.44 4.30 - 5.80 M/cumm [facility] MCV 88.8 81.3 - 96.[address] [facility] MCH 30.7 27.1 - 33.[address] [facility] MCHC 34.6 32.3 - 35.7 g/dL [facility] RDW CV 13.4 11.1 - 14.9 % [facility] RDW SD 43.1 35.7 - 48.[address] [facility] NRBC abs 0.02(H) 0.00 - 0.01 K/cumm [facility] Blood Venous blood specimen / Unknown 04/15/2025 11:59 AM CDT 04/15/2025 12:26 PM CDT us Rehana Park MD LAB BLOOD ORDERABLES Final Res ult Performing Organization Address City/[facility]/ZIP Co de Phone Number [facility] [address] Department [place] [address] * FL ERCP Biliary Duct (04/14/2025 11:58 AM CDT) Narrative [id number] - 04/14/2025 11:58 AM CDT The images from this study are not interpreted by Radiology. Please refer to the physician's procedure / OR operative note. us Beto Romero MD IMG FLUOROSCOPY PROCEDURES Final Result Performing Organization Address [facility]/ZIP Co de Phone Number [email or web address] * ERCP (04/14/2025 8:25 AM CDT) Anatomical Region Laterality Modality Other Narrative Procedure Note Beto Romero MD - 04/14/2025 8:25 AM CDT [facility] Patient Name: Tommy Garrison Procedure Date: 04/14/2025 8:25 AM Date of : 1950 Admit Type: Outpatient Age: 75 Gender: Male Attending MD: Beto Romero M.D. [facility] 1 Note Status: Finalized Procedure: ERCP Indications: Bile duct stone(s) (sludge seen on same day EUS). Patient with incomplete CCK and episodes ofgallstone pancreatitis. Referring MD: Clover Mcpherson PA-C, Lamin Springer M.D. Providers: Beto Romero M.D. Medicines: Monitored Anesthesia Care, Indomethacin 100 mg LA Complications: No immediate complications. Estimated Blood Loss: Estimated blood loss: none. Procedure: Pre-Anesthesia Assessment: - The risks and benefits of the procedure and the sedation options and risks were discussed with the patient. All questions were answered and informed consent was obtained. - Immediately prior to administration ofmedications, the patient was re-assessed for adequacy to receive sedatives. The benefits, risks, and alternatives to theprocedure and sedation were discussed and informed consentwas obtained. The [id number] Duodenoscope wasintroduced through the mouth, and used to inject contrast into and used to inject contrast into the bile duct. The ERCP was accomplished without difficulty. Thepatient tolerated the procedure well. Findings: The shirt marker film was normal. The esophagus was successfully intubated under direct vision without detailed examination of the pharynx,larynx, and associated structures, and upper GI tract. The upper GI tract was grossly normal. The major papilla was normal. A 0.035 inch x 260 cm straight Dreamwire was passed into the biliary tree. The short-nosed traction sphincterotome was passed over the guidewire and the bileduct was then deeply cannulated. Contrast was injected. I personally interpreted the bile duct images. Ductal flow of contrast wasadequate. Image quality was adequate. Contrast extended to the entire biliary tree. There was gilda angulation in the distal bile duct. The commonbile duct measured 5-6 mm in greatest dimension. A 7 mm biliary sphincterotomy was made with a traction (standard) sphincterotomeusing ERBE electrocautery. There was no post-sphincterotomy bleeding. To discover objects, the biliary tree was swept with an 11.5 mm balloon starting at the upper third of the main bile duct. Sludge was sweptfrom the duct. One 10 Fr by 5 cm plastic stent with a single external flap and a single internal flap was placed into the common bile duct. Bile flowed through the stent. The stent was in good position. Theendoscope was withdrawn from the patient. Impression: - The major papilla appeared normal. - A biliary sphincterotomy was performed. - The biliary tree was swept and sludge wasfound. - One plastic stent was placed into the common bile duct. Recommendation: - Observe patient's clinical course. - Watch for pancreatitis, bleeding, perforation,and cholangitis. - Avoid aspirin and nonsteroidal anti-inflammatory medicines for 10 days. - Return to referring physician as previously scheduled. - Repeat ERCP in 3 months to exchange stent. Attending Participation: I personally performed the entire procedure. Electronically signed by Beto Romero M.D. Beto Romero M.D. 04/14/2025 9:38:53 AM . Number of Addenda: 0 Note Initiated On: 04/14/2025 8:25 AM us Beto Romero MD ENDOSCOPY PROCEDURES Final Result * Upper EUS (04/14/2025 8:24 AM CDT) Anatomical Region Laterality Modality Other Narrative Procedure Note Beto Romero MD - 04/14/2025 8:24 AM CDT [facility] Patient Name: Tomym Garrison Procedure Date: 04/14/2025 8:24 AM Date of : 1950 Admit Type: Outpatient Age: 75 Gender: Male Attending MD: Beto Romero M.D. Room: [facility] 1 Note Status: Finalized Procedure: Upper EUS Indications: Suspected choledocholithiasis, eval for cholecystoduodenal fistula Referring MD: Clover Mcpherson PA-C, aLmin Springer M.D. Providers: Beto Romero M.D. Medicines: Monitored Anesthesia Care Complications: No immediate complications. Estimated Blood Loss: Estimated blood loss: none. Procedure: Pre-Anesthesia Assessment: - The risks and benefits of the procedure and the sedation options and risks were discussed with the patient. All questions were answered and informed consent was obtained. - Immediately prior to administration ofmedications, the patient was re-assessed for adequacy to receive sedatives. The risks, benefits and alternatives were discussed and informed consent was obtained. The GIF [id number] endoscope was introduced through themout, and advanced to the second part of duodenum The Olympus curved linear array therapeuticendosonoscope [id number] was introduced through the mouth, and advanced to the second part of duodenum The upperEUS was accomplished without difficulty. The patient tolerated the procedure well. Findings: ENDOSCOPIC FINDING: : The examined esophagus was normal. The entire examined stomach was normal. The examined duodenum was normal. ENDOSONOGRAPHIC FINDING: : There was no sign of significant endosonographic abnormality in the ampulla. Minimal hyperechoic material consistent with sludge was visualized endosonographically in the common bile duct. There was no sign of significant endosonographic abnormality in theleft lobe of the liver. There was no sign of significant endosonographic abnormality in themain pancreatic duct and entire pancreas. The pancreatic duct measured upto 2 mm in diameter. No pathologic lymphadenopathy seen. Impression: - Normal esophagus. - Normal stomach. - Normal examined duodenum. - There was no sign of significant pathology in the ampulla. - Hyperechoic material consistent with sludge was visualized endosonographically in the common bileduct. - There was no evidence of significant pathology in the left lobe of the liver. - There was no sign of significant pathology in the main pancreatic duct and entire pancreas. Recommendation: - Perform an ERCP today. Attending Participation: I personally performed the entire procedure. Electronically signed by Beto Romero M.D. Beto Romero M.D. 04/14/2025 9:42:35 AM . Number of Addenda: 0 Note Initiated On: 04/14/2025 8:24 AM Beto Romero MD ENDOSCOPY PROCEDURES Final Result * POCT glucose (04/14/2025 8:21 AM CDT) Glucose, POC 114 70 - 199 mg/dL Blood 04/14/2025 8:21 AM CDT 04/14/2025 8:21 AM CDT Beto Romero MD LAB POCT ORDERABLES - MOE CE Final Result [facility] Department [place] [address] * CT abdomen pelvis with and without contrast (03/30/2025 6:45 AM CDT) Anatomical Region Laterality Modality Body N/A Computed Tomogra phy 03/30/2025 8:26 AM CDT Impressions 03/30/2025 8:26 AM CDT Impression: Findings compatible with acute mild uncomplicated pancreatitis with interval resolution of previously seen pancreatic fluid collection. Electronically signed by: Jeremy Muhammad M.D. Narrative 03/30/2025 8:26 AM CDT EXAMINATION: Computed tomography of the abdomen and pelvis with and without intravenous contrast HISTORY: Pancreatitis TECHNIQUE: Transaxial computed tomographic images of the abdomen and pelvis were obtained with and without intravenous contrast according to the pancreatic protocol after the uneventful administration of 100 mL Opti-Ray 350 intravenous contrast. COMPARISON: Computed tomography examination abdomen pelvis with contrast 02/26/2025 FINDINGS: Lung bases are clear. Heart size is normal. Extensive coronary artery calcifications noted. Surgical changes noted compatible partial cholecystectomy. No focal liver lesions present. Previously seen fluid collection within the pancreatic head has resolved. Currently there is mild enlargement pancreatic head with mild peripancreatic fat stranding. The remainder of the pancreas appears unremarkable. No drainable peripancreatic fluid collections present. The spleen, both adrenal glands appear normal. Nonobstructing stones noted within the right kidney. Cysts noted within both kidneys. The largest cyst within the left kidney demonstrates discontinuous calcification within the wall. It is unchanged. There is no hydronephrosis. Extensive vascular calcifications noted within the aorta and branch vessels. Bowel gas pattern and appendix appear normal. Prostate and urinary bladder appear normal. There is a small fat-containing left inguinal hernia. Images obtained with bone window settings demonstrate no suspicious osseous abnormality. Mild changes noted within the spine. Procedure Note Jeremy Muhammad MD - 03/30/2025 EXAMINATION: Computed tomography of the abdomen and pelvis with and without intravenous contrast HISTORY: Pancreatitis TECHNIQUE: Transaxial computed tomographic images of the abdomen and pelvis were obtained with and without intravenous contrast according to the pancreatic protocol after the uneventful administration of 100 mL Opti-Ray 350 intravenous contrast. COMPARISON: Computed tomography examination abdomen pelvis with contrast 02/26/2025 FINDINGS: Lung bases are clear. Heart size is normal. Extensive coronary artery calcifications noted. Surgical changes noted compatible partial cholecystectomy. No focal liver lesions present. Previously seen fluid collection within the pancreatic head has resolved. Currently there is mild enlargement pancreatic head with mild peripancreatic fat stranding. The remainder of the pancreas appears unremarkable. No drainable peripancreatic fluid collections present. The spleen, both adrenal glands appear normal. Nonobstructing stones noted within the right kidney. Cysts noted within both kidneys. The largest cyst within the left kidney demonstrates discontinuous calcification within the wall. It is unchanged. There is no hydronephrosis. Extensive vascular calcifications noted within the aorta and branch vessels. Bowel gas pattern and appendix appear normal. Prostate and urinary bladder appear normal. There is a small fat-containing left inguinal hernia. Images obtained with bone window settings demonstrate no suspicious osseous abnormality. Mild changes noted within the spine. IMPRESSION: Impression: Findings compatible with acute mild uncomplicated pancreatitis with interval resolution of previously seen pancreatic fluid collection. Electronically signed by: Jeremy Muhammad M.D. Clover SEPULVEDA IMG CT PROCEDURES Final R esult * POCT lipid panel (12/12/2024 2:51 PM [employer]) Cholesterol, POC 121 mg/dL Comment:GLU = 137 HDL, POC <15 mg/dL Triglycerides, POC 265 mg/dL LDL Cholesterol POC 53 mg/dL Chol/HDL Ratio, POC N/A Non-HDL Cholesterol, POC N/A mg/dL Cholesterol Total, POC 121 mg/dL Capillary blood 12/12/2024 2 :51 PM [employer] Dante Marrufo MD POINT OF CARE TEST ORDER SUSAN Final Result from Last 3 Months or Most Recently Relevant to Health Maintenance Insurance [facility] MEDICARE ADVANTAGE [address] [place] [id number] Advance Directives For more information, please contact: [phone] Documents on File Type Date Recorded Patient Hand Heel Seat Fitter Expl anation ADVANCE DIRECTIVE 01/29/2025 1:36 AM POWER OF MACHINE MAINTENANCE SUPERVISOR-MEDICAL ADVANCE DIRECTIVE 09/10/2019 12:00 AM POW ER OF MACHINE MAINTENANCE SUPERVISOR FINANCIAL/MEDICAL * Full Code (Latest Code Status on File) Date Activated Date Inactivated Comments 06/03/2025 6:18 PM 06/05/2025 10:21 PM * Full Code Date Activated Date Inactivated Comments 04/15/2025 8:33 PM 04/16/2025 10:06 PM * Full Code Date Activated Date Inactivated Comments 04/14/2025 8:11 AM 04/14/2025 3:23 PM * Full Code Date Activated Date Inactivated Comments 02/26/2025 12:45 AM 02/28/2025 7:08 PM * Full Code Date Activated Date Inactivated Comments 01/21/2025 8:23 AM 01/27/2025 7:50 PM Care Teams Termite Inspector Relationship Specialty Start Date End Date Dante Camacho MD PCP - General Family Medicine 09/17/19 Dante Camacho MD 03/28/19 Lamin Springer MD [id number] [place] [address] Consulting Physician General Surgery 01/27/25 Miscellaneous, Not In File 01/27/25
--- OUTSIDE RECORDS SUMMARY | 2025-06-09 08:40 | XMS_ITS | Clinical Summary ---
Author Organization [facility] Address [address] [place] [address] Care Team Providers Care Wood Tool Maker Name Role Phone Unavailable Primary Care Provider Unavailabl e Source Comments [facility],non-owned Affiliates and Associated Physician Practices is amultiple site organization consisting of ambulatory clinics and hospital sitesin [place], [place], [place] and [place]. This disclosure is being madepursuant to the Care Everywhere program and may not contain all information available regarding this patient. Last updated 18.[facility] [employer] Active Problems Problem Noted Date Diagnosed Date Acute pancreatitis, unspecif ied complication status, unspecified pancreatitis type 01/20/2025 Cholecystitis 01/20/2025 Social History Tobacco Use Types Packs/Day Years Used Date Smoking Tobacco: Never Assessed Sex and Gender Information Value Date Recorded Sex Assigned at Not on file Legal Sex Male 7:09 AM CDT Gender Identity Not on file Sexual Orientation Not on file Plan of Treatment Health Maintenance Due Date Last Done Comments COLOGUARD (AGES 45-75) - COL ON CA SCREENING 1950 COLON MONITORING 1950 COLONOSCOPY - COLON CA SCREENING 1950 CT COLONOGRAPHY - COLON CA SCREENING 1950 Colorectal Cancer Screening 1950 FIT - COLON CA SCREENING 1950 FLEX SIG - COLON CA SCREENING 1950 LIPID TESTING 1950 HEPATITIS C SCREENING 03/03/1970 DTAP/TDAP/TD VACCINES (1 - Tdap) 1971 PNEUMOCOCCAL VACCINE 50+ (1 of 1 - PCV) 2002 ZOSTER VACCINE (1 of 2) 2002 COVID-19 VACCINE (1 - 2023-2 5 season) 2024 DEPRESSION SCREENING 10/15/2024 MEDICARE AWV CALENDAR YEAR 2024 INFLUENZA VACCINE (#1) 2025 Respiratory Syncytial Virus (RSV) Vaccine Pt: or over 60 yrs (1 - 1-dose 75+ series) 2027 HEPATITIS B VACCINE Aged Out No longe r eligible based on patient's age to complete this topic HIB VACCINE Aged Out No longer eligi ble based on patient's age to complete this topic HPV VACCINE Aged Out No longer eligi ble based on patient's age to complete this topic MENINGOCOCCAL (Group B) VACC INE SHARED DECISION-MAKING Aged Out No longer eligibl e based on patient's age to complete this topic MENINGOCOCCAL GROUPS A/C/Y/W VACCINE Aged Out No longer eligible b ased on patient's age to complete this topic Insurance SELF PAY NO INSURANCE Member Subscriber Plan / Payer (Ef fective for All Dates) Name:Tommy Velasquez Member ID:Not on file Relation to Subscriber:Not on file Name:TOMMY VELASQUEZ Subscriber ID:Not on file (Home) Address: [address] [place] [address] Payer ID:Not on file Group ID:Not on file Type:Self Pay Address: [facility] MANAGED MEDICARE ADV * Guarantor: TOMMY VELASQUEZ Account Type Relation to Patient Date of Phone Billing Address Personal/Family [address] [place] [address] SELF PAY NO INSURANCE Member Subscriber Plan / Payer (Ef fective for All Dates) Name:Tommy Velasquez Member ID:Not on file Relation to Subscriber:Not on file Name:TOMMY VELASQUEZ Subscriber ID:Not on file Address: [address] [place] [address] Payer ID:Not on file Group ID:Not on file Type:Self Pay Address: [facility] MEDICARE ADV * Guarantor: RONTOMMY Gallagher Account Type Relation to Patient Date of Phone Billing Address Personal/Family [address] [place] [address] SELF PAY NO INSURANCE Member Subscriber Plan / Payer (Ef fective for All Dates) Name:Tommy Velasquez Member ID:Not on file Relation to Subscriber:Not on file Name:TOMMY VELASQUEZ Subscriber ID:Not on file (Home) Address: [address] [place] [address] Payer ID:Not on file Group ID:Not on file Type:Self Pay Address: [place], [place] [employer] MANAGED MEDICARE ADV * Guarantor: RONTOMMY Account Type Relation to Patient Date of Phone Billing Address Personal/Family [address] [place] [address] SELF PAY NO INSURANCE Member Subscriber Plan / Payer (Ef fective for All Dates) Name:Tommy Velasquez Member ID:Not on file Relation to Subscriber:Not on file Name:TOMMY VELASQUEZ Subscriber ID:Not on file (Home) Address: [address] [place] [id number] Payer ID:Not on file Group ID:Not on file Type:Self Pay Address: [place], [place] [employer] MANAGED MEDICARE ADV
--- OUTSIDE RECORDS SUMMARY | 2025-06-09 08:40 | XMS_ITS | Patient Health Record ---
Author Organization [facility] [place] Address [address] [place] [address] Care Team Providers Care Back Roll Lathe Operator Name Role Phone Santiago Espinal [phone] Reason For Referral No Information Medications Medication SIG (Take, Route, Frequency, Duration) Notes Start Date End Date Status hydroCHLOROthiazide 25 MG 1 tablet in th e morning Orally Once a day Active Rosuvastatin Calcium 20 MG 1 tablet Oral ly Once a day Active Sildenafil Citrate 20 MG 1 tablet Orally as needed Active Gabapentin 300 MG 1 capsule Orally Three times a day; Duration: 30 day(s) 04/06/2020 Not-Taking Lisinopril 10 MG 1 tablet Orally Once a day Active Bystolic 20 MG 1 tablet Orally Once a day Active Pantoprazole Sodium 40 MG 1 tablet Orall y Once a day Active HYDROcodone-Acetaminophen 5-325 MG 1 tablet as needed Orally BID; Duration: 30 days 01/11/2022 Active Social History Tobacco Use: Social History Observation Description Date Details (start date - stop date) Never Smoker NA - NA Tobacco Use/Smoking Question Answer Notes Are you a nonsmoker Alcohol Screen (Audit-C) Question Answer Notes Did you have a drink containing alcohol in the p ast year? Yes Points 0 Interpretation Negative Problems Problem Type SNOMED Code ICD Code Onset Dates Problem Status W/U Status Risk Notes Problem Lumbosacral spondylosis without myelopathy (disorder) (92064081) Spondylosis without myelopathy or radiculopathy, lumbosacral region (M47.817) Active confirmed Problem Spinal stenosis of thoracic region (95525274) Spinal stenosis, thoracic region (M48.04) Active confirmed Problem Spinal stenosis of lumbar region (90438960) Spinal stenosis, lumbar region (M48.06) Active confirmed Problem Degenerative lumbar spinal stenosis (789629440) Degenerative lumbar spinal stenosis (M48.061) Active confirmed Plan Of Treatment No Information Medications Administered Medication Instructions Date of Administration Dosage Notes [...] Steroid Injection 03/09/2020 right T12 SESI 06/15/2020 Medical (General) History Medical History History ICD Code hypertension kidney stones Surgical History Surgery Date(Month/Year) cataract removal vein ligation foot surgery
[2025-06-09 08:45] LABS: Hematocrit 44.4 % (42.0-52.0); Hemoglobin 14.4 g/dL (14.0-18.0); Mean Corpuscular HGB Conc 32.4 g/dl (32-36); Mean Corpuscular Hemoglobin 29.0 pg (26-34); Mean Corpuscular Volume 89.3 fl (80-100); Platelet Count Result 218 k/mm3 (150-375); Red Blood Count 4.97 M/mm3 (4.6-6.20); White Blood Count 15.1 K/mm3 (4.5-10.0)
[2025-06-09] MEDS: ACETAMINOPHEN 650 MG SUPPOSITORY RECTAL (08:48)
[2025-06-09] MEDS: SODIUM CHLORIDE 0.9% IV 1,000 ML 999 ML IV CONT ×2 (08:52→09:31)
[2025-06-09 08:57] LABS: INR 1.4; Prothrombin Time 16.9 Seconds (11.1-14.7)
[2025-06-09 08:58] LABS: Partial Thromboplastin Time 33.7 Seconds (22.3-36.8)
--- NOTE | 2025-06-09 09:05 | ECG_ITS ---
Test Date: 2025-06-09 09:13:10 Measurements Intervals [place] Rate: 137 P: 0 IN: 0 QRS: -42 QRSD: 102 T: 89 QT: 216 QTc: 326 Interpretive Statements SINUS TACHYCARDIA LEFT AXIS DEVIATION ST ELEVATION IN SEPTAL LEADS- CONSIDER ACUTE INFARCT ST DEPRESSION IN ANTEROLAT/INF LEADS- CONSIDER ISCHEMIA BASELINE ARTIFACT- I, II, III, AVR, AVL, AVF ABNORMAL ECG Compared to ECG 06/09/2025 08:35:03 ST DEPRESSION NOW PRESENT Electronically Signed On 06-09-2025 09:51:25 CDT by Walt Morgan D.O.
[2025-06-09 09:15] LABS: Alanine Aminotransferase 40 U/L (6-50); Albumin Level 3.6 g/dL (3.5-5.1); Alkaline Phosphatase 177 U/L (38-126); Anion Gap 15 mmol/L (4-12); Aspartate Amino Transferase 69 U/L (17-59); Bilirubin,Total 2.4 mg/dL (0.2-1.3); Blood Urea Nitrogen 36 mg/dL (9-20); Calcium 9.5 mg/dL (8.4-10.2); Carbon Dioxide 22 mmol/L (22-30); Chloride 103 mmol/L (98-107); Estimated CRCL calculation 29 ml/min; Estimated Glomerular Filt Rate 31; Glucose 217 mg/dL (65-110); Lipase 18 U/L (23-300); Potassium 3.1 mmol/L (3.4-5.0); Sodium 140 mmol/L (137-145); Total Protein 6.5 g/dL (6.3-8.2)
--- NOTE | 2025-06-09 09:17 | PC.NURSE ---
dr foster called no answer along with no VM set up Angelina Telles called
[2025-06-09 09:21] LABS: Band Neutrophils Percent 12 % (0-6); Lymphocytes Absolute Manual 1.20 K/mm3 (1.1-4.5); Lymphocytes Percent Manual 8 % (18-44); Monocytes Absolute Manual 0.15 K/mm3 (0.1-0.90); Monocytes Percent Manual 1 % (3-9); Neutrophils Absolute Manual 13.74 K/mm3 (1.3-6.7); Neutrophils Percent Manual 79 % (46-73); Schistocytes None Seen; Total Cells Counted 100
[2025-06-09 09:30] LABS: Add Urine Microscopic? YES; Appearance Urine Clear (Clear); Glucose Urine UA Negative (Negative); Leukocyte Esterase Ur 1+ LEU/UL (Negative); Need Manual Microscopic Reviewed; Nitrate Urine Positive (Negative); Non Pathogenic Casts 0-2; Specific Grav Ur 1.015 (1.001-1.035)
--- NOTE | 2025-06-09 09:31 | PC.NURSE ---
0916 Angelina Telles 0930 O/H Stemi [address] Alfredo 0979 [facility] Standby ETA 30min
[2025-06-09] MEDS: SODIUM CHLORIDE 0.9% IV 700 ML 999 ML IV CONT (09:32)
[2025-06-09] MEDS: NOREPINEPHRINE 8 MG/D5W 250 ML 8 MG/250 ML BAG 9.38 MG IV CONT (09:35)
[2025-06-09] MEDS: PIPERACILLIN/TAZOBACTAM SOD 4.5 GM in SODIUM CHLORIDE 0.9% IV 100 ML 200 ML IVPB (09:39)
[2025-06-09] MEDS: ASPIRIN 300 MG SUPPOSITORY RECTAL (09:51)
[2025-06-09] MEDS: VANCOMYCIN 1,250 MG/NS 250 ML 1,250 MG/250 ML BAG 166.67 MG IVPB (10:21)
[2025-06-09 10:31] LABS: Troponin I 0.918 ng/mL (0.000-0.034)
[2025-06-09] MEDS: PERFLUTREN LIPID MICROSPHERES 1.5 ML VIAL DILUTED TO 10 ML TOTAL VOLUME IV PUSH (10:53)
--- NOTE | 2025-06-09 10:54 | IVDEFINITY ---
Prior to administration of IV Definity the patient was educated on the risks and benefits of the imaging enhancing agent including potential adverse side effects. The patient verbalized understanding. Allergies were verified. No exclusion criteria were identified and at least one of the following inclusion criteria were met: 1) physician request, 2) patient technically difficult to image (per the [place] [employer] guidelines of two or more segments not discernable within the apical view), or 3) questionable left ventricular function. ?
[2025-06-09 11:24] LABS: MRSA (PCR) NOT DETECTED (NOT DETECTE)
[2025-06-09] MEDS: HEPARIN SOD/D5W 100 UNITS/ML 25,000 UNITS/250 ML BAG 10 UNITS IV CONT (11:28)
[2025-06-09] MEDS: VASOPRESSIN INJ 100 UNITS in DEXTROSE 5% 95 ML IV CONT (12:00)
[2025-06-09 12:14] LABS: Troponin I 10.600 ng/mL (0.000-0.034)
[2025-06-09] MEDS: EPINEPHrine HCL INJ 1 MG in DEXTROSE 5% IN WATER 250 ML 15.06 MG IV CONT (12:43)
[2025-06-11 09:00] LABS: CRP 26.9 mg/dL (<1.0)
== END 2025-06-09 14:10 | disposition short-term general hospital (02) ==
LOC: ANHED 08:33
PROVIDERS: Emergency Provider Student in an Organized Health Care Education/Training Program; PCP Family Medicine
DX: I21.3 ST elevation (STEMI) myocardial infarction of unspecified site (principal); K55.059 Acute (reversible) ischemia of intestine, part and extent unspecified; R65.21 Severe sepsis with septic shock; R00.0 Tachycardia, unspecified; I10 Essential (primary) hypertension; E78.5 Hyperlipidemia, unspecified; Z87.442 Personal history of urinary calculi; G47.30 Sleep apnea, unspecified
CPT/HCPCS: 36415; 36556; 70450; 71275; 74174; 80053; 81001; 83605; 83690; 84484; 85025; 85610; 85730; 86140; 87040; 87086; 87641; 93005; 96365; 96366; 96367; 96375; 99291; A9270; C1751; C8929; J0166; J1644; J2003; J2543; J3373; J7030; J7040; J7060; Q9957; Q9967